=== PATIENT | male | born 1945 | race Caucasian/White ===

== ENCOUNTER 2024-04-08 17:07 | Inpatient (IN) | payer MEDICARE, SELFPAY ==
--- OUTSIDE RECORDS SUMMARY | 2024-04-08 17:12 | XMS_ITS | Continuity of Care Document ---
Author Organization Deandre Bolden [facility] Address [address] [place] [address] Phone Care Team Providers Care Auditing Specialist Name Role Phone Lucille SANTOS Childers Elizabeth Unavailable Unavailable Allergies, Adverse Reactions, Alerts Substance Reaction Status Criticality No Known Allergies Active No Inform ation Medications Medication Instructions Dosage Effective Dates (start - stop) Status Comments potassium chloride ER 10 mEq capsule,extended release TAKE 1 CAPSULE BY MOUTH 2 TIMES DAILY WITH FOOD ^,1R - Active due for updated lab DONEPEZIL HCL 10MG TABS TAKE 1 TABLET BY MOUTH EVERY DAY IN THE EVENING ^ - Active OMEPRAZOLE 20MG CAPSULE TAKE ONE CAPSULE BY MOUTH TWICE A DAY 30 MINUTES TO 1 HOUR BEFORE A MEAL ^1R,1R3 - Active DILTIAZEM HCL ER COATED BE 240 CP24 TAKE 1 CAPSULE BY MOUTH EVERY DAY ^ - Active TRIAMCINOLONE ACETONIDE 0.5% CREAM 15GM APPLY A THIN LAYER TOPICALLY TO AFFECTED AREA TWO TIMES A DAY NEEDED (BULK) - Active PRAVASTATIN SODIUM 20MG TABS TAKE ONE TABLET BY MOUTH EVERY DAY ^1R2 - Active ELIQUIS 5MG TABS TAKE 1 TABLET BY MOUTH TWICE DAILY ^1R2,1R3 - Active sertraline 25 mg tablet take 1 tablet by oral route every day 25 MG - Active diltiazem ER (XR/XT) 240 mg capsule,extended release 24 hr, controlled take 1 capsule by oral route every day 240 MG - Active famotidine 40 mg tablet take 1 tablet by oral route every day at bedtime 40 MG - Active furosemide 40 mg tablet take 1 tablet by oral route every day 40 MG - Active levothyroxine 75 mcg capsule take 1 capsule by oral route every day 75 MCG - Active lisinopril 2.5 mg tablet take 1 tablet by oral route every day 2.5 MG - Active metoprolol succinate ER 200 mg tablet,extended release 24 hr take 1.5 tablet by oral route every day 300 MG - Active Gemtesa 75 mg tablet take 1 tablet by oral route every day 75 MG - Active dorzolamide 2 %-timolol 0.5 % (PF) eye drops - Active latanoprost 0.005 % eye drops instill 1 drop by ophthalmic route every day into affected eye(s) in the evening 1.00 drop - Active POTASSIUM CHLORIDE ER 10MEQ CPCR TAKE 1 CAPSULE BY MOUTH 2 TIMES DAILY WITH FOOD ^1R2,1R3 - No Longer Active Procedures Procedure Date OFFICE/OUTPATIENT VISIT, EST OFFICE/OUTPATIENT VISIT, EST Psychotherapy 45 Min (38-52 Min) 2023 OFFICE/OUTPATIENT VISIT, EST PROLNG OFF/OP E/M EA 15 MIN Left W/O Being Seen OFFICE/OUTPATIENT VISIT, EST Nurse Assesment ELECTROCARDIOGRAM, COMPLETE OFFICE/OUTPATIENT VISIT, NEW Advance Directives Directive Yes / No Effective Date File Name No Information Encounters Encounter Description Practice Location Reason(s) For Visit Diagnoses Date Provider Providers Copied on Encounter Deandre [facility], [address], [place], [place], [id number], [place] tel:[phone] [facility] No Information 4 Lucille Johnson. [address], [place], [address], [place]. tel:[phone] [facility], [address], [place], [place], [id number], [place] tel:[phone] [facility] PrediabetesHy perlipidemia 4 Blayne Roach. [address], [place], [address], [place]. tel:[phone] OFFICE/OUTPATI ENT VISIT, EST [facility], [address], [place], [place], [id number], [place] tel:[phone] [facility] ED f/u (chief complaint) Word finding difficultySta tus post fallHistory of stroke 4 Higinio Doherty. [address], [place], [address], [place]. tel:[phone] [facility], [address], [place], [place], [id number], [place] tel:[phone] [facility] No Information 4 Lucille Johnson. [address], [place], [address], [place]. tel:[phone] [facility], [address], [place], [place], [id number], [place] tel:[phone] [facility] No Information 4 Lucille Johnson. [address], [place], [address], [place]. tel:[phone] [facility], [address], [place], [place], [id number], [place] tel:[phone] [facility] No Information Jan-0 4 Lucille Johnson. [address], [place], [address], [place]. tel:[phone] [facility], [address], [place], [place], [id number], [place] tel:[phone] [facility] No Information 4 geno Johnson. [address], [place], [address], [place]. tel:[phone] OFFICE/OUTPATI ENT VISIT, EST [facility], [address], [place], [place], [id number], [place] tel:[phone] [facility] chronic conditions (chief complaint)d epression (chief complaint) Other psoriasisMixe d hyperlipidemi aEssential (primary) hypertensionH ypothyroidism , unspecifiedGo ut, unspecifiedPr ediabetesPers onal history of malignant neoplasm of prostateDepre ssion, recurrent 4 [facility] [address], [place], [address], [place]. tel:[phone] [facility], [address], [place], [place], [id number], [place] tel:[phone] [facility] No Information 4 [facility] Elizabeth. [address], [place], [address], [place]. tel:[phone] Psychotherapy 45 Min (38-52 Min) [facility], [address], [place], [place], [id number], [place] tel:[phone] [facility] Adjustment disorder w/ depressed mood 4 Tomás Aquino. [address], [place], [address], [place]. tel:[phone] OFFICE/OUTPATI ENT VISIT, EST [facility], [address], [place], [place], [id number], [place] tel:[phone] [facility] depression (chief complaint)P soriasis (chief complaint) Depression, recurrentPsor iasis 4 [facility] Elizabeth. [address], [place], [address], [place]. tel:[phone] [facility], [address], [place], [place], [id number], [place] tel:[phone] [facility] Proc/trtmt not crd out d/t pt lv bef seen by [facility] care prov 4 [facility] Elizabeth. [address], [place], [address], [place]. tel: [phone] [facility], [address], [place], [place], [id number], [place] tel:[phone] [facility] No Information 4 [facility]. [address], [place], [address], [place]. tel:[phone] OFFICE/OUTPATI ENT VISIT, EST [facility], [address], [place], [place], [id number], [place] tel:[phone] [facility] FOLLOW UP HOSPITAL ADMIT: A-FIB (chief complaint) Chronic glaucomaEssen tial hypertensionM ild dementia, unspecified dementia type, unspecified whether behavioral, psychotic, or mood disturbance or anxietyAtrial fibrillation, unspecified typeHistory of gout 3 [facility] Elizabeth. [address], [place], [address], [place]. tel:[phone] [facility], [address], [place], [place], [id number], [place] tel:[phone] [facility] rec/BP check (chief complaint) Essential hypertension 3 Miguel Blevins. [address], [place], [place], [id number] , [place]. tel:[phone] OFFICE/OUTPATI ENT VISIT, NEW [facility], [address], [place], [place], [id number], [place] tel:[phone] [facility] patient (chief complaint) Health maintenance alterationMil d dementia, unspecified dementia type, unspecified whether behavioral, psychotic, or mood disturbance or anxietyPsoria tic arthritisPsor iasisHypercho lesterolemiaE ssential hypertensionC hronic glaucomaParox ysmal atrial fibrillationA ortic atheroscleros isChronic congestive heart failure, unspecified heart failure typeHypothyro idism, unspecified typeHistory of prostate cancer 3 Lucille Johnson. [address], [place], [address], [place]. tel:[phone] Family History Family Member Type Diagnosis Age At Onset No Information Payers Payer name Insurance type Covered libertarian ID Authoriza tideniz(s) [employer] CI [id number] Social History Type Description Quantity Date Captured Comments Sex Male Smoking Status No Information Chief Complaint And Reason For Visit No Information Reason For Referral Reason For Referral No Information Plan Of Treatment Date Type Action Status Goal LDL Cholesterol (Direct). Due on due Goal Influenza vaccine. Due on due Goal Pneumococcal vaccine. Due on due Goal ECG due Goal Document SOGI In formation. Due on due Goal Zoster vaccine (). Due on due Goal Urinalysis. Due on due Goal Unhealthy drug u se screening. Due on due Goal Diabetes screening. Due on due Goal Td vaccine. Due on due Goal Zoster vaccine (). Due on due Goal Diabetes screening. Due on due Goal LDL Cholesterol (Direct). Due on due Goal Urinalysis. Due on due Goal Pneumococcal vaccine. Due on due Goal Document SOGI In formation. Due on due Goal Td vaccine. Due on due Goal Influenza vaccine. Due on due Goal ECG due Goal Unhealthy drug u se screening. Due on due Goal Unhealthy drug u se screening. Due on due Goal Zoster vaccine (1st). Due on due Goal Urinalysis. Due on due Goal ECG due Goal Influenza vaccine. Due on due Goal Td vaccine. Due on due Goal Document SOGI In formation. Due on due Goal LDL Cholesterol (Direct). Due on due Goal Diabetes screening. Due on due Goal Pneumococcal vaccine. Due on due Goal Td vaccine. Due on due Goal LDL Cholesterol (Direct). Due on due Goal Zoster vaccine (). Due on due Goal Document SOGI In formation. Due on due Goal ECG due Goal Pneumococcal vaccine. Due on due Goal Influenza vaccine. Due on due Goal Urinalysis. Due on due Goal Unhealthy drug u se screening. Due on due Goal Diabetes screening. Due on due Goal Document SOGI In formation. Due on due Goal Td vaccine. Due on due Goal ECG due Goal LDL Cholesterol (Direct). Due on due Goal Unhealthy drug u se screening. Due on due Goal Diabetes screening. Due on due Goal Urinalysis. Due on due Goal Pneumococcal vaccine. Due on due Goal Zoster vaccine (). Due on due Goal Influenza vaccine. Due on due Goal LDL Cholesterol (Direct). Due on due Goal Influenza vaccine. Due on due Goal Td vaccine. Due on due Goal Zoster vaccine (). Due on due Goal Diabetes screening. Due on due Goal Unhealthy drug u se screening. Due on due Goal ECG due Goal Urinalysis. Due on due Goal Pneumococcal vaccine. Due on due Goal Document SOGI In formation. Due on due Goal CT-Colonography. Due on due Goal FOBT. Due on due Goal Colonoscopy. Due on due Goal Influenza vaccine. Due on due Goal Diabetes screening. Due on due Goal Td vaccine. Due on due Goal LDL Cholesterol (Direct). Due on due Goal Urinalysis. Due on due Goal Unhealthy drug u se screening. Due on due Goal FIT-DNA. Due on due Goal Zoster vaccine (). Due on due Goal Pneumococcal vaccine. Due on due Goal Document SOGI In formation. Due on due Goal Lipid panel. Due on 024 due Goal ECG due Goal LDL Cholesterol (Direct). Due on due Goal Unhealthy drug u se screening. Due on due Goal Td vaccine. Due on due Goal CT-Colonography. Due on due Goal Urinalysis. Due on due Goal Diabetes screening. Due on O due Goal FOBT. Due on due Goal FIT-DNA. Due on due Goal Document SOGI In formation. Due on due Goal Pneumococcal vaccine. Due on due Goal ECG due Goal Influenza vaccine. Due on Oc due Goal Zoster vaccine (). Due on due Goal Lipid panel. Due on 023 due Goal Colonoscopy. Due on 023 due Goal Influenza vaccine. Due on Se due Goal Td vaccine. Due on due Goal Urinalysis. Due on due Goal CT-Colonography. Due on due Goal Unhealthy drug u se screening. Due on due Goal Document SOGI In formation. Due on due Goal Pneumococcal vaccine. Due on due Goal ECG due Goal Lipid panel. Due on due Goal Colonoscopy. Due on due Goal LDL Cholesterol (Direct). Due on due Goal FIT-DNA. Due on due Goal Zoster vaccine (1st). Due on due Goal FOBT. Due on due Goal Diabetes screening. Due on due Goal Diabetes screening. Due on due Goal LDL Cholesterol (Direct). Due on due Goal Urinalysis. Due on due Goal ECG. Due on due Goal Td vaccine. Due on due Goal Unhealthy drug u se screening. Due on due Goal FIT-DNA. Due on due Goal Lipid panel. Due on due Goal CT-Colonography. Due on due Goal FOBT. Due on due Goal Document SOGI In formation. Due on due Goal Pneumococcal vaccine. Due on due Goal Colonoscopy. Due on 023 due Goal Influenza vaccine. Due on due Goal Zoster vaccine (1st). Due on due Referral Ordered: Physical Therapy (related to Status post fall) ordered Referral Referred To: Physical Therapy Ordered: Referrals: Physical Therapy. Evaluate and treat Appointment date/timeframe: Routine <3 Months ordered Referral Ordered: Referrals: Neurology. Evaluate and treat Appointment date/timeframe: Routine <3 Months ordered Referral Ordered: Rheumatology (related to Psoriasis) ordered Referral Ordered: Referrals: Rheumatology. Evaluate and treat Appointment date/timeframe: Routine <3 Months ordered Referral Ordered: Referrals: Urology Appointment date/timeframe: Routine <3 Months ordered Referral Ordered: Referrals: Cardiology. Evaluate and treat Appointment date/timeframe: Routine <3 Months ordered Referral Ordered: Referrals: Dermatology Appointment date/timeframe: Routine <3 Months ordered Appointment Gary Romero BOOKED Future Order: Lab Order Comp. Mt tabolic Panel (14) ([id number]), Sent on: Sent History Of Present Illness Encounter Date Complaint History Of Prese nt Illness ED f/u Went to [facility] on 03/07/24 after fall and had black eye and conjunctival hemorrhage. Pt lives in care home neighborhood. Not an assisted living. Was advised to stop elliquis for 2 days, has since resolve. Denies any worsening bruising or any eye swelling or eye pain. history of stroke and on eliquis residual word finding difficulty. Sees bridge builder for afib and history of stroke. Sees optometry in [place] at [facility]. Here with daughter. Advises to f/u with optometry.Daughter states having nursing available at [facility] and requested PT for fall prevention. Requesting home PT due to daughter only able to drive pt, pt does not drive. providers: [facility], [facility] [place] and [facility].Daughter would like referral for worsening word difficulty finding. ED f/u (comments) Comments: [facility] for fall assessment and PT. document ADLs chronic conditions 1) Other psor iasis (onset 12/29/2022; Uncontrolled. pt had some improvement in skin lesions with topical steroids but has ongoing knee pain, left hand pain) 2) Mixed hyperlipidemia (onset 12/29/2022; Controlled.) 3) Essential (primary) hypertension (onset 12/29/2022; Controlled.) 4) Hypothyroidism, unspecified (onset 12/29/2022; Controlled.) 5) Gout, unspecified (onset 12/29/2022; Controlled.) 6) Prediabetes (onset 12/29/2022; Stable.) 7) Personal history of malignant neoplasm of prostate (onset 12/29/2022; Stable.) depression This is a follow up visit. There is improvement of initial symptoms. The patient does not present with thoughts of or suicide. Additional information: in better spirits. did one therapy session, does not feel he needs again. per pt and daughter no more SI. depression (comments) Comments: here today because he told his ex / friend he wanted to kill himself. has dementia, lives independently in elderly housing. moved to [place] 1 year ago from [place] and hates it here. wants to go back to [place], has no friends here. moved up here due to kids being local. they help regularly. his ex told his daughter about what he said and they are here today to discuss concerns. pt was on TCA in [place] but since stopped taking depression The patient pres ents with thoughts of or suicide. The patient's risk factors include chronic illness, history of depression and social isolation. The patient denies any aggravating factors. Interventionsthe patient has tried have not provided any relief. Psoriasis The patient stat es the symptoms are chronic and are uncontrolled. Per daughter saw Neto ellsworth, tried some topicals but pt non compliant with treatment, does not like ointment.per seng wants him to see rheum for biologic, will not prescribe FOLLOW UP HOSPITAL ADMIT: A-FIB Pt admitted to [facility] after persisting rapid a-fib/flutter. likely due to non compliance with meds.had diltiazem drip while inpatient and stabilized, discharged on current med list, reviewed with patient and daughter.pt reports he is feeling greatdaughter now setting up pillsdaughter got digital clock which is easier to readusing QID case rayshawn is checking on him regularly and making sure he is taking correct, she says he is doing well he has been off the imipramine from [place], was unclear if he was taking consistently before. states had some mood changes while inapt but now mood much better doing home PT/OT Med rec/BP check Pt arrived [place] for schedule nurse visit per provider POC, pt accompanied by dtr who is assisting him with transition from moving from [place] into an independent living facility. Medications were brought to appt. Pt denies any new symptoms new patient Just moved here from [place], needs new PCP. Lives in elderly housing.extensive hx updated in history section of charthere with daughter, QUOC, form given Functional Status Date Functional Assessmen t No Information Instructions Date Instruction Additional Infor mation No Information Assessments Type Assessment Date No Information Patient Care Teams Name Effective Dates (start - stop) Status Members No Information
[2024-04-08 17:34] VITALS: BMI 32.6
[2024-04-08 17:35] VITALS: BP 143/86; PULSE 82; RESP 18; TEMP 36.1; O2SAT 97
--- NOTE | 2024-04-08 19:41 | PC.ADMIT ---
78 year old white male admitted to 182-2 at 1730 from [facility] ED with diagnosis of Unspecified Neurocognitive Disorder via stretcher. Patient signed a CV in our ED. He is alert to self only. 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 He is calm and cooperative. His vital signs [id number]/86 and O2 Sat 97% on room air. He has been recently more confused and paranoid, calling the police to report that there was a masked man in his independent living apartment. The police sent him to [facility] ED. Information was obtained from the patient who was very difficult to interview and his chart. He has several areas of Psoriasis all over his body, including both upper extremities, right knee, coccyx and posterior left flank. He denies pain. He denies HI, SI and says that he sometimes has unusual thoughts. He stated that he is having trouble with his neighbors and he would never hurt anyone. He was not focused during his interview , nonsensical and had to be redirected several times. He is incontinent of urine. His main HCP Marianna is on vacation in [facility] so his daughter KARENA who lives in [facility] gave [facility] information. NKA. Height 68 inches , weight 214.6 pounds. He stated that he already had the Flu shot, and refused it. He has not smoked for at least ten years and does not need or want any nicotine replacement or counseling.
[2024-04-08 20:00] VITALS: BP 116/80; PULSE 87; RESP 18; TEMP 36; O2SAT 96
[2024-04-08] MEDS: traZODone HCL 50 MG TABLET PO (20:29)
[2024-04-08] MEDS: hydrOXYzine HCL 25 MG TABLET PO (20:29)
[2024-04-08 21:13] LABS: Alanine Aminotransferase 15 U/L (0-40); Alkaline Phosphatase 78 U/L (39-117); Anion Gap 13 (12-20); Aspartate Amino Transferase 24 U/L (5-37); Bilirubin Total 0.6 mg/dL (0.0-1.0); Blood Urea Nitrogen 21 mg/dL (9-16); Calcium 8.9 mg/dL (8.4-10.2); Carbon Dioxide 25 mmol/L (22-29); Chloride 109 mmol/L (96-108); Creatinine Clr Calc Pharmacy 83.6; Estimated Glomerular Filt Rate > 60; Glucose Random 109 mg/dL (60-115); Potassium 3.9 mmol/L (3.3-5.1); Sodium 143 mmol/L (135-145); Total Protein 7.1 g/dL (6.5-8.0)
--- NOTE | 2024-04-08 21:35 | HO.PM.IMCN ---
History of Present Illness Data of Consult Service Date: 04/08/24 Requesting physician: Berny Escamilla Primary Care Provider: Unknown Physician HPI Reason for consult: medical consult Patient is a 78-year-old male with a past medical history significant for neurocognitive disorder unspecified, AFib, CVA, gout left foot, GERD, dementia, hypothyroidism, arthritis and psoriasis admitted to Geriatric psych for confusion and paranoid, consulted for medical clearance for the floor. the pt was confused and very difficult to interview. he did answer questions with appropriate responses and was difficult to redirect. he was pleasant, however, no accurate history was given. Review of Systems Review of Systems: Yes Unobtainable due to mental status PMFSH Social History Household Members: None Housing: Apartment Housing Other:: independent living facility [facility] Do you presently have visiting nurse or other home services: No Patient Tobacco Use Status: Former Tobacco user Tobacco use type: Cigarette Smoked in Last 30 Days: No e-Cigarette/Vaping Use: Never Used Patient Interested in Nicotine Replacement: No Patient Given Instructions on How to Stop Smoking: No Second Hand Smoke Exposure: No Use of substances other than those prescribed or required for medical reasons: No Currently Displaying Signs/Symptoms of Drug Intoxication Withdrawal: No Any prior treatment program specific to substance use: No Have you been hit, kicked, punched, or otherwise hurt by someone within the past year? If so, by whom?: No Do you feel safe in your current relationship?: Yes Is there a partner from a previous relationship who is making you feel unsafe now?: No Are you made to feel afraid or neglected: No Gnosticist Healthcare Practices: Buddhism Advance Directives: No Advance Directives Information Provided: No Do you have a plan to hurt others: No Plan Recently lost weight without trying: Unsure Nutrition Risks: No Nutritional Risk Poor oral hygiene: No Meds Allergies Allergy/AdvReac Type Severity Reaction Status Date / Time No Known Allergies Allergy Verified 04/08/24 19:16 Active Medications: Current Medications Acetaminophen (Acetaminophen 325 Mg Tablet) 650 mg PO Q6H PRN PRN Reason: Headache/Pain Mild Scale (1-3) Al Hydroxide/Mg Hydroxide (Magnesium Hydrox/Alum Hydrox 30 Ml Oral.Susp) 30 ml PO Q6H PRN PRN Reason: Heartburn/Nausea Apixaban (Apixaban 5 Mg Tablet) 5 mg PO BID [facility] Diltiazem HCl (Diltiazem Hcl Cd 240 Mg Cap.Er.Deg) 240 mg PO DAILY [facility]; Protocol Donepezil HCl (Donepezil Hcl 10 Mg Tablet) 10 mg PO DAILY [facility] Famotidine (Famotidine 20 Mg Tablet) 40 mg PO BEDTIME [facility] Furosemide (Furosemide 40 Mg Tablet) 40 mg PO DAILY [facility]; Protocol Hydroxyzine HCl (Hydroxyzine Hcl 25 Mg Tablet) 25 mg PO Q6H PRN PRN Reason: Anxiety Last Admin: 04/08/24 20:29 Dose: 25 mg Latanoprost (Latanoprost 0.005 % Ophth Lupis 2.5 Ml Drops) 1 drop EYE-BOTH BEDTIME [facility] Levothyroxine Sodium (Levothyroxine Sodium 75 Mcg Tablet) 75 mcg PO DAILY [facility] Lisinopril (Lisinopril 2.5 Mg Tablet) 2.5 mg PO DAILY [facility]; Protocol Magnesium Hydroxide (Milk Of Magnesia 30 Ml Oral.Susp) 30 ml PO DAILY PRN PRN Reason: Constipation Metoprolol Succinate (Metoprolol Succinate Er 100 Mg Tab.Er.24h) 200 mg PO DAILY [facility]; Protocol Non-Formulary Medication (Potassium Chloride) 10 meq PO BID [facility] Non-Formulary Medication (Solifenacin) 10 mg PO DAILY [facility] Omeprazole (Omeprazole 20 Mg Capsule.Dr) 20 mg PO BID [facility] Pravastatin Sodium (Pravastatin Sodium 20 Mg Tablet) 20 mg PO DAILY [facility] Trazodone HCl (Trazodone Hcl 50 Mg Tablet) 50 mg PO BEDTIME MRX1 PRN PRN Reason: Insomnia Last Admin: 04/08/24 20:29 Dose: 50 mg Home Medications ?Medication ?Instructions ?Recorded ?Confirmed ?Last Taken ?Type apixaban 5 mg tablet (Eliquis) 5 mg PO BID 04/08/24 04/08/24 Unknown History diltiazem HCl 240 mg 240 mg PO DAILY 04/08/24 04/08/24 Unknown History capsule,extended release 24 hr donepezil 10 mg tablet 10 mg PO DAILY 04/08/24 04/08/24 Unknown History famotidine 40 mg tablet 40 mg PO BEDTIME 04/08/24 04/08/24 Unknown History furosemide 40 mg tablet 40 mg PO DAILY 04/08/24 04/08/24 Unknown History latanoprost 0.005 % eye drops 1 drp ophthalmic (eye) BEDTIME 04/08/24 04/08/24 Unknown History levothyroxine 75 mcg tablet 75 mcg PO DAILY 04/08/24 04/08/24 Unknown History lisinopril 2.5 mg tablet 2.5 mg PO DAILY 04/08/24 04/08/24 Unknown History metoprolol succinate 200 mg 200 mg PO DAILY 04/08/24 04/08/24 Unknown History tablet,extended release 24 hr omeprazole 20 mg capsule,delayed 20 mg PO BID 04/08/24 04/08/24 Unknown History release potassium chloride 10 mEq 10 meq PO BID 04/08/24 04/08/24 Unknown History capsule,extended release pravastatin 20 mg tablet 20 mg PO DAILY 04/08/24 04/08/24 Unknown History solifenacin 10 mg tablet 10 mg PO DAILY 04/08/24 04/08/24 Unknown History Physical Exam Vital Signs and Narrative: Vital Signs: Last Vital Signs Temp 96.8 F 04/08/24 20:00 Pulse 87 04/08/24 20:00 Resp 18 04/08/24 20:00 BP 116/80 04/08/24 20:00 Pulse Ox 96 04/08/24 20:00 O2 Del Method Room Air 04/08/24 20:00 BMI result Body Mass Index 32.6 General: alert and orientated to person, no acute distress Resp: CTA bilaterally CVS: S1, S2, RRR GI: +BS, NT, no distention Skin: Warm, dry. Psoriasis plaques visible on upper extremities Neuro: limited exam as he did not follow commands well. PERRLA, EOMs intact, facial sensation intact, no facial droop. Extremities: No LE edema Psych: Appropriate affect Results Labs 04/08/24 20:38 Labs: Laboratory Results - last 24 hr 04/08/24 20:38 Anion Gap 13 Estim Creat Clear Calc 83.6 Estimated GFR > 60 Random Glucose 109 Calcium 8.9 Total Bilirubin 0.6 AST 24 ALT 15 Alkaline Phosphatase 78 Total Protein 7.1 Albumin 4.0 Assessment and Plan (1) Medical clearance for psychiatric admission: Status: Acute (2) Obesity (BMI 30.0-34.9): Status: Acute Plan Patient is a 78-year-old male with a past medical history significant for neurocognitive disorder unspecified, AFib, CVA, gout left foot, GERD, dementia, hypothyroidism, arthritis and psoriasis admitted to Geriatric psych for confusion and paranoid, consulted for medical clearance for the floor. no accurate history was obtain, however, pt did not have any current medical concerns and appeared comfortable. mood disorder - plan per psych Neurocognitive disorder unspecified, dementia - continue donepezil a fib - continue eliquis, diltiazem, metoprolol History CVA - continue pravastatin Gout - no home meds GERD - continue famotidine and omeprazole Hypothyroidism - continue levothyroxine Psoriasis - patient not bothered by psoriasis - consider adding triamcinolone cream if bothersome Obesity - BMI 32.6 - weight loss encouraged Thank you for allowing me to participate in the pt's care. Signing off for now. Please contact the medical team if any questions or concerns.
[2024-04-08] MEDS: Apixaban 5 MG TABLET PO (22:39)
[2024-04-08] MEDS: Famotidine 20 MG TABLET 40 MG PO (22:39)
[2024-04-08] MEDS: Omeprazole 20 MG CAPSULE.DR PO (22:39)
[2024-04-08] MEDS: Potassium Chloride ER 10 MEQ TABLET.ER PO (22:45)
[2024-04-08] MEDS: Latanoprost 0.005 % Ophth Sol 2.5 ML DROPS 1 DROP EYE-BOTH (22:47)
--- NOTE | 2024-04-09 04:18 | PC.NURSE ---
Patient is seen by hospitalist, Bárbara Childs.
[2024-04-09] MEDS: Omeprazole 20 MG CAPSULE.DR PO ×2 (06:14→16:09)
[2024-04-09] MEDS: Levothyroxine Sodium 75 MCG TABLET PO (06:14)
[2024-04-09 08:06] VITALS: BP 155/91; PULSE 86; RESP 16; TEMP 36.1; O2SAT 95
[2024-04-09] MEDS: Furosemide 40 MG TABLET PO (08:47)
[2024-04-09] MEDS: lisinopriL 2.5 MG TABLET PO (08:47)
[2024-04-09] MEDS: Pravastatin Sodium 20 MG TABLET PO (08:47)
[2024-04-09] MEDS: dilTIAZem HCL CD 240 MG CAP.ER.DEG PO (08:48)
[2024-04-09] MEDS: Tolterodine Tartrate LA 4 MG CAP.ER.24H PO (08:48)
[2024-04-09] MEDS: Potassium Chloride ER 10 MEQ TABLET.ER PO ×2 (08:48→21:15)
[2024-04-09] MEDS: Apixaban 5 MG TABLET PO ×2 (08:48→21:15)
[2024-04-09] MEDS: Donepezil HCl 10 MG TABLET PO (08:48)
[2024-04-09 09:13] LABS: Estimated Average Glucose 123 mg/dL; Hemoglobin A1c % 5.9 % (<6.0); Total Hemoglobin (HGBA1C) 3408.3455 umol/L
--- NOTE | 2024-04-09 09:32 | PHA.MEDREC ---
Addendum entered by Morris Ramires 04/09/24 09:42: reviewed, the metoprolol has already been continued at 200mg Daily, I was unable to contact the pharmacy. Spoke to the provider to let them know. Original Note: Pharmacy Consult ? Medication Reconciliation Pharmacy reviewed med rec done by nursing. Nurse confirmed patients Metoprolol 200mg tab and the nurse had confirmed once daily. In claims it looks like the Metoprolol has been consistently filled as Take 1 1/2 tablet daily, I updated the directions in the med rec. Everything else matched claims.
[2024-04-09 09:38] LABS: Cholesterol 171 mg/dL (<200); HDL Cholesterol 42 mg/dL (>40); LDL Cholesterol Calculated 115 mg/dL (<100); Triglycerides 70 mg/dL (<150)
[2024-04-09 09:53] VITALS: BP 138/89; PULSE 78
[2024-04-09 09:53] LABS: Thyroid Stimulating Hormone 1.36 uIU/mL (0.32-4.0)
[2024-04-09] MEDS: Metoprolol Succinate ER 100 MG TAB.ER.24H 200 MG PO (09:53)
[2024-04-09 10:02] LABS: Vitamin B12 216 pg/mL (200-900)
--- NOTE | 2024-04-09 13:17 | HO.PSYADMNOT ---
HPI Date of Service: 04/09/24 Chief Complaint: unspecified neurocognitive d/o Sources of Information: patient interviewed, chart reviewed and crisis/core team assessment reviewed HPI Subjective Notes: Section 12B Narrative: The patient is a 78-year-old male, resident of an assisted living facility with good social support provided but his 2 adult daughters who lives around with a past history of dementia. The patient was rushed to the emergency room after he had been calling to the police several times stating that masked intruders are getting into his home. According to the crisis assessment her daughter reported that he had been more irritable in the last month unclear reasons. He was assessed in the emergency room [facility], evidenced on the psychiatric evaluation of visual hallucinations with disorganized behavior. Was rushed to the emergency room medically cleared and transferring to this facility for psychiatric stabilization. During the emergency room, the assessment showed that he was severely demented and confused unable to follow directions. On interview, the patient was very confused and pleasant stating that he is doing fine but he was completely disoriented, he did not know that he was in the hospital. Was unable to provide how come he ended up in the emergency room was complaining that he needed to go to his home. The patient was a very poor historian but pleasantly confused and redirectable. We will try to gather more collateral information. According to the referral form, the patient suffers from dementia for an unknown time and he has never received psychiatric treatment. No safety concerns at this moment on fall risk precautions. Past Psychiatric History: Denies no prior psychiatric history as per report Medical Evaluation Reviewed: Yes [facility] Family History: Denies Social History: Lives in an assisted living facility past history of dementia good social support Substance History: Denies Trauma History: Denies Diagnostics Vital Signs (24Hr): Vital Signs - 24 hr 04/08/24 17:35 04/08/24 20:00 04/09/24 08:06 Temperature 97 F 96.8 F 97.0 F Pulse Rate 82 87 86 Respiratory Rate 18 18 16 Blood Pressure 143/86 H 116/80 155/91 H Pulse Oximetry 97 96 95 Oxygen Delivery Method Room Air Room Air Room Air 04/09/24 09:53 Temperature Pulse Rate 78 Respiratory Rate Blood Pressure 138/89 Pulse Oximetry Oxygen Delivery Method BMI result Body Mass Index 32.6 Labs 04/08/24 20:38 Labs: Laboratory Results - last 48 hr 04/08/24 04/09/24 20:38 08:12 Sodium 143 Potassium 3.9 Chloride 109 H Carbon Dioxide 25 Anion Gap 13 BUN 21 H Creatinine 0.85 Estim Creat Clear Calc 83.6 Estimated GFR > 60 Random Glucose 109 Estimat Average Glucose 123 Hemoglobin A1c % 5.9 Calcium 8.9 Total Bilirubin 0.6 AST 24 ALT 15 Alkaline Phosphatase 78 Total Protein 7.1 Albumin 4.0 Triglycerides 70 Cholesterol 171 LDL Cholesterol, Calc 115 H HDL Cholesterol 42 Vitamin B12 216 Folate 16.0 TSH 1.36 Meds/Allergies Meds Home Medications ?Medication ?Instructions ?Recorded ?Confirmed ?Type apixaban 5 mg tablet (Eliquis) 5 mg PO BID 04/08/24 04/08/24 History diltiazem HCl 240 mg 240 mg PO DAILY 04/08/24 04/08/24 History capsule,extended release 24 hr donepezil 10 mg tablet 10 mg PO DAILY 04/08/24 04/08/24 History famotidine 40 mg tablet 40 mg PO BEDTIME 04/08/24 04/08/24 History furosemide 40 mg tablet 40 mg PO DAILY 04/08/24 04/08/24 History latanoprost 0.005 % eye drops 1 drp ophthalmic (eye) BEDTIME 04/08/24 04/08/24 History levothyroxine 75 mcg tablet 75 mcg PO DAILY 04/08/24 04/08/24 History lisinopril 2.5 mg tablet 2.5 mg PO DAILY 04/08/24 04/08/24 History metoprolol succinate 200 mg 300 mg PO DAILY 04/08/24 04/09/24 History tablet,extended release 24 hr omeprazole 20 mg capsule,delayed 20 mg PO BID 04/08/24 04/08/24 History release potassium chloride 10 mEq 10 meq PO BID 04/08/24 04/08/24 History capsule,extended release pravastatin 20 mg tablet 20 mg PO DAILY 04/08/24 04/08/24 History solifenacin 10 mg tablet 10 mg PO DAILY 04/08/24 04/08/24 History Allergies Allergies Allergy/AdvReac Type Severity Reaction Status Date / Time No Known Allergies Allergy Verified 04/08/24 19:16 Mental Status Exam Mental Status Exam Patient Appearance: Appropriate Patient Orientation: Person and Situation Level of Consciousness: Awake and Appropriate Patient Behavior: Guarded and Passive Mood Description: Withdrawn Affect Description: Blunted Patient Cognition Impaired: Yes Ability to Follow Directions: Good Speech Pattern: Clear Hallucinations: Auditory Delusions: Paranoid Ideation and Ideas of Reference Thought Process: Distracted and Slowed Thinking Thought Content: positive for [place] and positive for Poverty of Content Judgement: Fair Assessment & Plan Assessment & Plan (1) Dementia: Status: Acute Code(s): F03.90 - Unspecified dementia, unspecified severity, without behavioral disturbance, psychotic disturbance, mood disturbance, and anxiety (2) Psychosis: Status: Acute Code(s): F29 - Unspecified psychosis not due to a substance or known physiological condition Plan The patient is a 78-year-old male with a past history of high blood pressure, dementia, hypothyroidism and GERD referred from the emergency room of [facility] for exacerbation of psychosis in the context of worsening dementia. He had been calling the police regarding masked intruders in his home and disorganized behavior. Plan 1. Gather collateral information. 2. Continue 15 minutes checks. 3. Continue with medical workout. 4. We will start a low dose of Zyprexa 2.5 p.o. q.6 PRNs psychosis since he responded fairly well on the emergency room. 5. Referral for occupational therapist for cognitive impairment. Patient educated on: diagnosis Informed Consent: does not understand Reason for continued inpatient stay Substantial Risk for: inability to function, rapid decompensation and med/psych decompensation Statement Statement: I have reviewed the history and physical and performed a pertinent examination on my patient. No changes have occurred unless specified. If the History and Physical was not performed prior to admission, the Hospitalist's service will be consulted for completing the admission physical. Time Spent With Patient Time: Total time managing care of this patient today __45__ minutes.
[2024-04-09 20:00] VITALS: BP 108/55; PULSE 59; RESP 18; TEMP 36.3; O2SAT 96
[2024-04-09] MEDS: Famotidine 20 MG TABLET 40 MG PO (21:15)
[2024-04-09] MEDS: traZODone HCL 50 MG TABLET PO (21:15)
[2024-04-09] MEDS: hydrOXYzine HCL 25 MG TABLET PO (21:15)
[2024-04-09] MEDS: Latanoprost 0.005 % Ophth Sol 2.5 ML DROPS 1 DROP EYE-BOTH (22:00)
[2024-04-10] MEDS: Levothyroxine Sodium 75 MCG TABLET PO (05:45)
[2024-04-10] MEDS: Omeprazole 20 MG CAPSULE.DR PO ×2 (05:45→15:58)
[2024-04-10 08:00] VITALS: BP 114/60; PULSE 67; RESP 18; TEMP 36; O2SAT 95
[2024-04-10] MEDS: Apixaban 5 MG TABLET PO ×2 (08:18→19:59)
[2024-04-10] MEDS: Donepezil HCl 10 MG TABLET PO (08:18)
[2024-04-10] MEDS: Tolterodine Tartrate LA 4 MG CAP.ER.24H PO (08:18)
[2024-04-10] MEDS: Potassium Chloride ER 10 MEQ TABLET.ER PO ×2 (08:18→20:00)
[2024-04-10] MEDS: dilTIAZem HCL CD 240 MG CAP.ER.DEG PO (08:18)
[2024-04-10] MEDS: Pravastatin Sodium 20 MG TABLET PO (08:18)
[2024-04-10] MEDS: lisinopriL 2.5 MG TABLET PO (08:18)
[2024-04-10] MEDS: Metoprolol Succinate ER 100 MG TAB.ER.24H 200 MG PO (08:19)
[2024-04-10] MEDS: Furosemide 40 MG TABLET PO (08:19)
--- NOTE | 2024-04-10 13:14 | P.PNPSI_ITS ---
Subjective Subjective Date of Service: 04/10/24 Reason For Visit: unspecified neurocognitive d/o Subjective Notes: Conditional Voluntary (?hcp) Medical Problems Affecting Mental Status: Yes (dementia) Interim History: 76 yo with confusion and affect lability- nursing reports he is wandering and paranoid, thinking someone is going to kill him, continues confused. When provider saw him he was sitting in back row watching movie on tv- but not really attending or aware that is what he was doing= He was mumbling rambling on with provider about things that didn't really tie together in coherent fashion. They report he only selpt 2 hrs and failed aterax /trazodone Medication Compliance: Yes Side effects from medications: No Attending Groups: Intermittent Review of Systems Acute medical concerns: No risk of falls Medical Review of Systems: unchanged Mental Status Exam Mental Status Exam Patient Appearance: Well Grooomed and Appropriate Patient Orientation: Person Level of Consciousness: Awake Patient Behavior: Appropriate, Cooperative and Good Eye Contact Mood Description: Calm (with provider) and Labile (over times of day ) Affect Description: Blunted Patient Cognition Impaired: Yes Ability to Follow Directions: Fair Speech Pattern: Garbled and Rambling Delusions: Paranoid Ideation Depressive Symptoms: Difficulty Sleeping Abnormal Motor Activity Signs and Symptoms: Restlessness Judgement: Poor Diagnostics Vital Signs (24Hr): Vital Signs - 24 hr 04/09/24 20:00 04/10/24 08:00 Temperature 97.4 F 96.8 F Pulse Rate 59 67 Respiratory Rate 18 18 Blood Pressure 108/55 L 114/60 Pulse Oximetry 96 95 Oxygen Delivery Method Room Air Room Air BMI result Body Mass Index 32.6 Labs 04/08/24 20:38 Labs: Laboratory Results - last 48 hr 04/08/24 04/09/24 20:38 08:12 Sodium 143 Potassium 3.9 Chloride 109 H Carbon Dioxide 25 Anion Gap 13 BUN 21 H Creatinine 0.85 Estim Creat Clear Calc 83.6 Estimated GFR > 60 Random Glucose 109 Estimat Average Glucose 123 Hemoglobin A1c % 5.9 Calcium 8.9 Total Bilirubin 0.6 AST 24 ALT 15 Alkaline Phosphatase 78 Total Protein 7.1 Albumin 4.0 Triglycerides 70 Cholesterol 171 LDL Cholesterol, Calc 115 H HDL Cholesterol 42 Vitamin B12 216 Folate 16.0 TSH 1.36 Medications Medications Current Medications Acetaminophen (Acetaminophen 325 Mg Tablet) 650 mg PO Q6H PRN PRN Reason: Headache/Pain Mild Scale (1-3) Al Hydroxide/Mg Hydroxide (Magnesium Hydrox/Alum Hydrox 30 Ml Oral.Susp) 30 ml PO Q6H PRN PRN Reason: Heartburn/Nausea Apixaban (Apixaban 5 Mg Tablet) 5 mg PO BID [facility] Last Admin: 04/10/24 08:18 Dose: 5 mg Diltiazem HCl (Diltiazem Hcl Cd 240 Mg Cap.Er.Deg) 240 mg PO DAILY [facility]; Protocol Last Admin: 04/10/24 08:18 Dose: 240 mg Donepezil HCl (Donepezil Hcl 10 Mg Tablet) 10 mg PO DAILY [facility] Last Admin: 04/10/24 08:18 Dose: 10 mg Famotidine (Famotidine 20 Mg Tablet) 40 mg PO BEDTIME [facility] Last Admin: 04/09/24 21:15 Dose: 40 mg Furosemide (Furosemide 40 Mg Tablet) 40 mg PO DAILY [facility]; Protocol Last Admin: 04/10/24 08:19 Dose: 40 mg Hydroxyzine HCl (Hydroxyzine Hcl 25 Mg Tablet) 25 mg PO Q6H PRN PRN Reason: Anxiety Last Admin: 04/09/24 21:15 Dose: 25 mg Latanoprost (Latanoprost 0.005 % Ophth Lupis 2.5 Ml Drops) 1 drop EYE-BOTH BEDTIME [facility] Last Admin: 04/09/24 22:00 Dose: 1 drop Levothyroxine Sodium (Levothyroxine Sodium 75 Mcg Tablet) 75 mcg PO DAILY@0600 [facility] Last Admin: 04/10/24 05:45 Dose: 75 mcg Lisinopril (Lisinopril 2.5 Mg Tablet) 2.5 mg PO DAILY [facility]; Protocol Last Admin: 04/10/24 08:18 Dose: 2.5 mg Magnesium Hydroxide (Milk Of Magnesia 30 Ml Oral.Susp) 30 ml PO DAILY PRN PRN Reason: Constipation Metoprolol Succinate (Metoprolol Succinate Er 100 Mg Tab.Er.24h) 200 mg PO DAILY [facility]; Protocol Last Admin: 04/10/24 08:19 Dose: 200 mg Olanzapine (Olanzapine 2.5 Mg Tablet) 2.5 mg PO Q4H PRN PRN Reason: Psychosis Omeprazole (Omeprazole 20 Mg Capsule.Dr) 20 mg PO BID@0630,1630 [facility] Last Admin: 04/10/24 05:45 Dose: 20 mg Potassium Chloride (Potassium Chloride Er 10 Meq Tablet.Er) 10 meq PO BID [facility] Last Admin: 04/10/24 08:18 Dose: 10 meq Pravastatin Sodium (Pravastatin Sodium 20 Mg Tablet) 20 mg PO DAILY [facility] Last Admin: 04/10/24 08:18 Dose: 20 mg Tolterodine Tartrate (Tolterodine Tartrate La 4 Mg Cap.Er.24h) 4 mg PO DAILY [facility] Last Admin: 04/10/24 08:18 Dose: 4 mg Trazodone HCl (Trazodone Hcl 50 Mg Tablet) 50 mg PO BEDTIME MRX1 PRN PRN Reason: Insomnia Last Admin: 04/09/24 21:15 Dose: 50 mg Allergies Allergies Allergy/AdvReac Type Severity Reaction Status Date / Time No Known Allergies Allergy Verified 04/08/24 19:16 Assessment & Plan Assessment & Plan (1) Dementia: Status: Acute Code(s): F03.90 - Unspecified dementia, unspecified severity, without behavioral disturbance, psychotic disturbance, mood disturbance, and anxiety (2) Psychosis: Status: Acute Code(s): F29 - Unspecified psychosis not due to a substance or known physiological condition Plan The patient is a 78-year-old male with a past history of high blood pressure, dementia, hypothyroidism and GERD referred from the emergency room of [facility] for exacerbation of psychosis in the context of worsening dementia. He had been calling the police regarding masked intruders in his home and disorganized behavior. Plan 1. Gather collateral information. 2. Continue 15 minutes checks. 3. Continue with medical workout. 4. We will start a low dose of Zyprexa 2.5 p.o. q.6 PRNs psychosis since he responded fairly well on the emergency room. 5. Referral for occupational therapist for cognitive impairment. 04/10/24 wonder about using olanzapine 2.5mg mr x1 for sleep ? consider but needs to have risk reviewed with hcp re stroke in elderly- other night meds risk of falls- Guardian/Caregiver educated on: medication risk/benefits Informed Consent: further education needed Reason for continued inpatient stay Substantial Risk for: med/psych decompensation Time Spent With Patient Time: Total time managing care of this patient today ____ minutes.
[2024-04-10 19:44] VITALS: BP 117/59; PULSE 63; TEMP 36.5; O2SAT 93
[2024-04-10] MEDS: Latanoprost 0.005 % Ophth Sol 2.5 ML DROPS 1 DROP EYE-BOTH (19:59)
[2024-04-10] MEDS: Famotidine 20 MG TABLET 40 MG PO (19:59)
[2024-04-10] MEDS: traZODone HCL 50 MG TABLET PO (19:59)
[2024-04-10] MEDS: hydrOXYzine HCL 25 MG TABLET PO (19:59)
[2024-04-11] MEDS: Levothyroxine Sodium 75 MCG TABLET PO (06:44)
[2024-04-11] MEDS: Omeprazole 20 MG CAPSULE.DR PO ×2 (06:44→16:12)
[2024-04-11 08:00] VITALS: BP 127/63; PULSE 62; TEMP 36.4; O2SAT 94
[2024-04-11 09:15] VITALS: BP 127/63
[2024-04-11] MEDS: Pravastatin Sodium 20 MG TABLET PO (09:15)
[2024-04-11] MEDS: Potassium Chloride ER 10 MEQ TABLET.ER PO ×2 (09:15→20:21)
[2024-04-11] MEDS: Tolterodine Tartrate LA 4 MG CAP.ER.24H PO (09:15)
[2024-04-11] MEDS: lisinopriL 2.5 MG TABLET PO (09:15)
[2024-04-11 09:16] VITALS: BP 127/63; PULSE 62
[2024-04-11] MEDS: Furosemide 40 MG TABLET PO (09:16)
[2024-04-11] MEDS: Apixaban 5 MG TABLET PO ×2 (09:16→20:21)
[2024-04-11] MEDS: Donepezil HCl 10 MG TABLET PO (09:16)
[2024-04-11] MEDS: dilTIAZem HCL CD 240 MG CAP.ER.DEG PO (09:16)
[2024-04-11] MEDS: Metoprolol Succinate ER 100 MG TAB.ER.24H 200 MG PO (09:16)
[2024-04-11] MEDS: Memantine HCl 5 MG TABLET PO ×2 (09:20→20:21)
--- NOTE | 2024-04-11 12:35 | HO.PSYCHPN ---
Subjective Subjective Date of Service: 04/11/24 Reason For Visit: unspecified neurocognitive d/o Subjective Notes: Section 12B Interim History: The nursing staff reported the patient had been restless delusional disorganized he slept 7 hours. He has refused to use the walker. Yesterday he took only 80% of his breakfast he had been med compliant and confused. The occupational therapist reported that he scored 3.2 on the Robby test. On interview the patient is very confused unable to hold a conversation. We are going to increase the Namenda to 5 b.i.d. and we are going to start Haldol 1 mg at 04:00 o'clock in the afternoon since the staff has noticed that he . Mental Status Exam Mental Status Exam Patient Appearance: Appropriate Patient Orientation: Person and Situation Level of Consciousness: Awake Patient Behavior: Guarded and Passive Mood Description: Withdrawn Affect Description: Labile Patient Cognition Impaired: Yes Ability to Follow Directions: Fair Speech Pattern: Clear, Impoverished and Difficulty Finding Words Hallucinations: None Delusions: Ideas of Reference Thought Process: Distracted and Slowed Thinking Thought Content: positive for [place] and positive for Poverty of Content Judgement: Poor Diagnostics Vital Signs (24Hr): Vital Signs - 24 hr 04/10/24 19:44 04/11/24 08:00 04/11/24 09:15 Temperature 97.7 F 97.5 F Pulse Rate 63 62 Blood Pressure 117/59 L 127/63 127/63 Pulse Oximetry 93 94 Oxygen Delivery Method Room Air Room Air 04/11/24 09:16 04/11/24 09:16 04/11/24 09:16 Temperature Pulse Rate 62 62 Blood Pressure 127/63 127/63 127/63 Pulse Oximetry Oxygen Delivery Method BMI result Body Mass Index 32.6 Labs 04/08/24 20:38 Medications Medications Current Medications Acetaminophen (Acetaminophen 325 Mg Tablet) 650 mg PO Q6H PRN PRN Reason: Headache/Pain Mild Scale (1-3) Al Hydroxide/Mg Hydroxide (Magnesium Hydrox/Alum Hydrox 30 Ml Oral.Susp) 30 ml PO Q6H PRN PRN Reason: Heartburn/Nausea Apixaban (Apixaban 5 Mg Tablet) 5 mg PO BID [facility] Last Admin: 04/11/24 09:16 Dose: 5 mg Diltiazem HCl (Diltiazem Hcl Cd 240 Mg Cap.Er.Deg) 240 mg PO DAILY [facility]; Protocol Last Admin: 04/11/24 09:16 Dose: 240 mg Donepezil HCl (Donepezil Hcl 10 Mg Tablet) 10 mg PO DAILY [facility] Last Admin: 04/11/24 09:16 Dose: 10 mg Famotidine (Famotidine 20 Mg Tablet) 40 mg PO BEDTIME [facility] Last Admin: 04/10/24 19:59 Dose: 40 mg Furosemide (Furosemide 40 Mg Tablet) 40 mg PO DAILY [facility]; Protocol Last Admin: 04/11/24 09:16 Dose: 40 mg Haloperidol (Haloperidol 1 Mg Tablet) 1 mg PO DAILY@1630 [facility] Hydroxyzine HCl (Hydroxyzine Hcl 25 Mg Tablet) 25 mg PO Q6H PRN PRN Reason: Anxiety Last Admin: 04/10/24 19:59 Dose: 25 mg Latanoprost (Latanoprost 0.005 % Ophth Lupis 2.5 Ml Drops) 1 drop EYE-BOTH BEDTIME [facility] Last Admin: 04/10/24 19:59 Dose: 1 drop Levothyroxine Sodium (Levothyroxine Sodium 75 Mcg Tablet) 75 mcg PO DAILY@0600 [facility] Last Admin: 04/11/24 06:44 Dose: 75 mcg Lisinopril (Lisinopril 2.5 Mg Tablet) 2.5 mg PO DAILY [facility]; Protocol Last Admin: 04/11/24 09:15 Dose: 2.5 mg Magnesium Hydroxide (Milk Of Magnesia 30 Ml Oral.Susp) 30 ml PO DAILY PRN PRN Reason: Constipation Memantine (Memantine Hcl 5 Mg Tablet) 5 mg PO BID [facility] Last Admin: 04/11/24 09:20 Dose: 5 mg Metoprolol Succinate (Metoprolol Succinate Er 100 Mg Tab.Er.24h) 200 mg PO DAILY [facility]; Protocol Last Admin: 04/11/24 09:16 Dose: 200 mg Olanzapine (Olanzapine 2.5 Mg Tablet) 2.5 mg PO Q4H PRN PRN Reason: Psychosis Omeprazole (Omeprazole 20 Mg Capsule.Dr) 20 mg PO BID@0630,1630 [facility] Last Admin: 04/11/24 06:44 Dose: 20 mg Potassium Chloride (Potassium Chloride Er 10 Meq Tablet.Er) 10 meq PO BID [facility] Last Admin: 04/11/24 09:15 Dose: 10 meq Pravastatin Sodium (Pravastatin Sodium 20 Mg Tablet) 20 mg PO DAILY [facility] Last Admin: 04/11/24 09:15 Dose: 20 mg Tolterodine Tartrate (Tolterodine Tartrate La 4 Mg Cap.Er.24h) 4 mg PO DAILY [facility] Last Admin: 04/11/24 09:15 Dose: 4 mg Trazodone HCl (Trazodone Hcl 50 Mg Tablet) 50 mg PO BEDTIME MRX1 PRN PRN Reason: Insomnia Last Admin: 04/10/24 19:59 Dose: 50 mg Allergies Allergies Allergy/AdvReac Type Severity Reaction Status Date / Time No Known Allergies Allergy Verified 04/08/24 19:16 Assessment & Plan Assessment & Plan (1) Dementia: Status: Acute Code(s): F03.90 - Unspecified dementia, unspecified severity, without behavioral disturbance, psychotic disturbance, mood disturbance, and anxiety (2) Psychosis: Status: Acute Code(s): F29 - Unspecified psychosis not due to a substance or known physiological condition Plan The patient is a 78-year-old male with a past history of high blood pressure, dementia, hypothyroidism and GERD referred from the emergency room of [facility] for exacerbation of psychosis in the context of worsening dementia. He had been calling the police regarding masked intruders in his home and disorganized behavior. Plan 1. Gather collateral information. 2. Continue 15 minutes checks. 3. Continue with medical workout. 4. We will start a low dose of Zyprexa 2.5 p.o. q.6 PRNs psychosis since he responded fairly well on the emergency room. 5. Referral for occupational therapist for cognitive impairment. He scored 3.2 on the Robby test 6. Haldol 1 mg at 04:00 o'clock to prevent sundowning. 7. Start Namenda 5 mg p.o. b.i.d. to target dementia. Reason for continued inpatient stay Substantial Risk for: inability to function, rapid decompensation and med/psych decompensation Time Spent With Patient Time: Total time managing care of this patient today _20__ minutes.
[2024-04-11 13:08] VITALS: BMI 32.7
[2024-04-11] MEDS: Acetaminophen 325 MG TABLET 650 MG PO (14:50)
[2024-04-11] MEDS: HaloperidoL 1 MG TABLET PO (16:12)
[2024-04-11 19:25] VITALS: BP 92/52; PULSE 50; TEMP 35.9; O2SAT 95
[2024-04-11] MEDS: Famotidine 20 MG TABLET 40 MG PO (20:20)
[2024-04-11] MEDS: Latanoprost 0.005 % Ophth Sol 2.5 ML DROPS 1 DROP EYE-BOTH (20:21)
[2024-04-12] MEDS: Omeprazole 20 MG CAPSULE.DR PO ×2 (06:01→15:44)
[2024-04-12] MEDS: Levothyroxine Sodium 75 MCG TABLET PO (06:01)
[2024-04-12 08:00] VITALS: BP 123/66; PULSE 56; RESP 16; TEMP 36.8; O2SAT 97
[2024-04-12] MEDS: Memantine HCl 5 MG TABLET PO ×2 (09:15→20:30)
[2024-04-12] MEDS: Potassium Chloride ER 10 MEQ TABLET.ER PO ×2 (09:15→20:30)
[2024-04-12] MEDS: Furosemide 40 MG TABLET PO (09:15)
[2024-04-12] MEDS: Apixaban 5 MG TABLET PO ×2 (09:16→20:30)
[2024-04-12] MEDS: Pravastatin Sodium 20 MG TABLET PO (09:16)
[2024-04-12] MEDS: lisinopriL 2.5 MG TABLET PO (09:16)
[2024-04-12] MEDS: Tolterodine Tartrate LA 4 MG CAP.ER.24H PO (09:16)
[2024-04-12] MEDS: Donepezil HCl 10 MG TABLET PO (09:16)
--- NOTE | 2024-04-12 14:00 | HO.PSYCHPN ---
Subjective Subjective Date of Service: 04/12/24 Reason For Visit: unspecified neurocognitive d/o Subjective Notes: Conditional Voluntary Interim History: The nursing staff reported the patient complained of back pain and received Tylenol with for improvement. He looks very confused but easily redirectable. Today we had a family meeting on line with her daughters and explained about his diagnosis. He is has a diagnosis of dementia treated with Aricept and Namenda recently increased. We added a low dose of Haldol to avoid sundowning. Still very confused but redirectable. Mental Status Exam Mental Status Exam Patient Appearance: Appropriate Patient Orientation: Person and Situation Level of Consciousness: Awake and Appropriate Patient Behavior: Guarded and Passive Mood Description: Withdrawn Affect Description: Constricted Patient Cognition Impaired: Yes Ability to Follow Directions: Good Speech Pattern: Clear Hallucinations: None Delusions: Paranoid Ideation and Ideas of Reference Thought Process: Distracted and Slowed Thinking Thought Content: positive for [place] and positive for Poverty of Content Judgement: Poor Diagnostics Vital Signs (24Hr): Vital Signs - 24 hr 04/11/24 19:25 04/12/24 08:00 Temperature 96.6 F L 98.2 F Pulse Rate 50 56 Respiratory Rate 16 Blood Pressure 92/52 L 123/66 Pulse Oximetry 95 97 Oxygen Delivery Method Room Air Room Air BMI result Body Mass Index 32.7 Labs 04/08/24 20:38 Medications Medications Current Medications Acetaminophen (Acetaminophen 325 Mg Tablet) 650 mg PO Q6H PRN PRN Reason: Headache/Pain Mild Scale (1-3) Last Admin: 04/11/24 14:50 Dose: 650 mg Al Hydroxide/Mg Hydroxide (Magnesium Hydrox/Alum Hydrox 30 Ml Oral.Susp) 30 ml PO Q6H PRN PRN Reason: Heartburn/Nausea Apixaban (Apixaban 5 Mg Tablet) 5 mg PO BID [facility] Last Admin: 04/12/24 09:16 Dose: 5 mg Diltiazem HCl (Diltiazem Hcl Cd 240 Mg Cap.Er.Deg) 240 mg PO DAILY [facility]; Protocol Last Admin: 04/12/24 11:15 Dose: Not Given Donepezil HCl (Donepezil Hcl 10 Mg Tablet) 10 mg PO DAILY [facility] Last Admin: 04/12/24 09:16 Dose: 10 mg Famotidine (Famotidine 20 Mg Tablet) 40 mg PO BEDTIME [facility] Last Admin: 04/11/24 20:20 Dose: 40 mg Furosemide (Furosemide 40 Mg Tablet) 40 mg PO DAILY [facility]; Protocol Last Admin: 04/12/24 09:15 Dose: 40 mg Haloperidol (Haloperidol 1 Mg Tablet) 1 mg PO DAILY@1630 [facility] Last Admin: 04/11/24 16:12 Dose: 1 mg Hydroxyzine HCl (Hydroxyzine Hcl 25 Mg Tablet) 25 mg PO Q6H PRN PRN Reason: Anxiety Last Admin: 04/10/24 19:59 Dose: 25 mg Latanoprost (Latanoprost 0.005 % Ophth Lupis 2.5 Ml Drops) 1 drop EYE-BOTH BEDTIME [facility] Last Admin: 04/11/24 20:21 Dose: 1 drop Levothyroxine Sodium (Levothyroxine Sodium 75 Mcg Tablet) 75 mcg PO DAILY@0600 [facility] Last Admin: 04/12/24 06:01 Dose: 75 mcg Lisinopril (Lisinopril 2.5 Mg Tablet) 2.5 mg PO DAILY [facility]; Protocol Last Admin: 04/12/24 09:16 Dose: 2.5 mg Magnesium Hydroxide (Milk Of Magnesia 30 Ml Oral.Susp) 30 ml PO DAILY PRN PRN Reason: Constipation Memantine (Memantine Hcl 5 Mg Tablet) 5 mg PO BID [facility] Last Admin: 04/12/24 09:15 Dose: 5 mg Metoprolol Succinate (Metoprolol Succinate Er 100 Mg Tab.Er.24h) 200 mg PO DAILY [facility]; Protocol Last Admin: 04/12/24 11:13 Dose: Not Given Olanzapine (Olanzapine 2.5 Mg Tablet) 2.5 mg PO Q4H PRN PRN Reason: Psychosis Omeprazole (Omeprazole 20 Mg Capsule.Dr) 20 mg PO BID@0630,1630 [facility] Last Admin: 04/12/24 06:01 Dose: 20 mg Potassium Chloride (Potassium Chloride Er 10 Meq Tablet.Er) 10 meq PO BID [facility] Last Admin: 04/12/24 09:15 Dose: 10 meq Pravastatin Sodium (Pravastatin Sodium 20 Mg Tablet) 20 mg PO DAILY [facility] Last Admin: 04/12/24 09:16 Dose: 20 mg Tolterodine Tartrate (Tolterodine Tartrate La 4 Mg Cap.Er.24h) 4 mg PO DAILY [facility] Last Admin: 04/12/24 09:16 Dose: 4 mg Trazodone HCl (Trazodone Hcl 50 Mg Tablet) 50 mg PO BEDTIME MRX1 PRN PRN Reason: Insomnia Last Admin: 04/10/24 19:59 Dose: 50 mg Allergies Allergies Allergy/AdvReac Type Severity Reaction Status Date / Time No Known Allergies Allergy Verified 04/08/24 19:16 Assessment & Plan Assessment & Plan (1) Dementia: Status: Acute Code(s): F03.90 - Unspecified dementia, unspecified severity, without behavioral disturbance, psychotic disturbance, mood disturbance, and anxiety (2) Psychosis: Status: Acute Code(s): F29 - Unspecified psychosis not due to a substance or known physiological condition Plan The patient is a 78-year-old male with a past history of high blood pressure, dementia, hypothyroidism and GERD referred from the emergency room of [facility] for exacerbation of psychosis in the context of worsening dementia. He had been calling the police regarding masked intruders in his home and disorganized behavior. Plan 1. Gather collateral information. 2. Continue 15 minutes checks. 3. Continue with medical workout. 4. We will start a low dose of Zyprexa 2.5 p.o. q.6 PRNs psychosis since he responded fairly well on the emergency room. 5. Referral for occupational therapist for cognitive impairment. He scored 3.2 on the Robby test 6. Haldol 1 mg at 04:00 o'clock to prevent sundowning. 7. Start Namenda 5 mg p.o. b.i.d. to target dementia. Reason for continued inpatient stay Substantial Risk for: inability to function, rapid decompensation and med/psych decompensation Time Spent With Patient Time: Total time managing care of this patient today __20__ minutes.
[2024-04-12] MEDS: HaloperidoL 1 MG TABLET PO (15:44)
--- NOTE | 2024-04-12 18:22 | PC.NURSE ---
Patient HR was 56 this morning, held Cardizem 240mg and Metoprolol 200mg, Dr. Escamilla notified.
[2024-04-12 20:00] VITALS: BP 127/68; PULSE 76; TEMP 36.6; O2SAT 96
[2024-04-12] MEDS: Famotidine 20 MG TABLET 40 MG PO (20:30)
[2024-04-12] MEDS: Latanoprost 0.005 % Ophth Sol 2.5 ML DROPS 1 DROP EYE-BOTH (20:30)
[2024-04-12] MEDS: traZODone HCL 50 MG TABLET PO (20:30)
[2024-04-12] MEDS: hydrOXYzine HCL 25 MG TABLET PO (20:30)
[2024-04-13] MEDS: Omeprazole 20 MG CAPSULE.DR PO ×2 (06:03→16:40)
[2024-04-13] MEDS: Levothyroxine Sodium 75 MCG TABLET PO (06:03)
[2024-04-13 08:31] VITALS: BP 135/80; PULSE 83; RESP 18; TEMP 36.3; O2SAT 96
[2024-04-13] MEDS: lisinopriL 2.5 MG TABLET PO (08:33)
[2024-04-13] MEDS: Metoprolol Succinate ER 100 MG TAB.ER.24H 200 MG PO (08:33)
[2024-04-13] MEDS: Furosemide 40 MG TABLET PO (08:33)
[2024-04-13] MEDS: Tolterodine Tartrate LA 4 MG CAP.ER.24H PO (08:33)
[2024-04-13] MEDS: Pravastatin Sodium 20 MG TABLET PO (08:33)
[2024-04-13] MEDS: Potassium Chloride ER 10 MEQ TABLET.ER PO ×2 (08:33→20:41)
[2024-04-13] MEDS: Donepezil HCl 10 MG TABLET PO (08:33)
[2024-04-13] MEDS: dilTIAZem HCL CD 240 MG CAP.ER.DEG PO (08:33)
[2024-04-13] MEDS: Apixaban 5 MG TABLET PO ×2 (08:33→20:40)
[2024-04-13] MEDS: Memantine HCl 5 MG TABLET PO ×2 (08:33→20:41)
--- NOTE | 2024-04-13 08:43 | HO.PSYCHPN ---
Subjective Subjective Date of Service: 04/13/24 Reason For Visit: unspecified neurocognitive d/o Subjective Notes: Conditional Voluntary Healthcare Proxy: Yes Medical Problems Affecting Mental Status: Yes (dementia) Interim History: 78 yo presents with ongoing confusion- only oriented x self- rambles but not coherent narrative- pleasant- incontinent urine- - using walker no complaints for provider and nursing reports patient slept- Medication Compliance: Yes Side effects from medications: No Attending Groups: Intermittent Review of Systems Acute medical concerns: No Medical Review of Systems: unchanged Mental Status Exam Mental Status Exam Patient Appearance: Appropriate Patient Orientation: Person Level of Consciousness: Awake Patient Behavior: Dependent, Passive and Good Eye Contact Mood Description: Calm Affect Description: Blunted Patient Cognition Impaired: Yes Ability to Follow Directions: Poor Speech Pattern: Rambling Thought Process: Distracted and Confusion Thought Content: positive for Disorganized Judgement: Poor Diagnostics Vital Signs (24Hr): Vital Signs - 24 hr 04/12/24 20:00 04/13/24 08:31 Temperature 97.8 F 97.3 F Pulse Rate 76 83 Respiratory Rate 18 Blood Pressure 127/68 135/80 Pulse Oximetry 96 96 Oxygen Delivery Method Room Air Room Air BMI result Body Mass Index 32.7 Labs 04/08/24 20:38 Medications Medications Current Medications Acetaminophen (Acetaminophen 325 Mg Tablet) 650 mg PO Q6H PRN PRN Reason: Headache/Pain Mild Scale (1-3) Last Admin: 04/11/24 14:50 Dose: 650 mg Al Hydroxide/Mg Hydroxide (Magnesium Hydrox/Alum Hydrox 30 Ml Oral.Susp) 30 ml PO Q6H PRN PRN Reason: Heartburn/Nausea Apixaban (Apixaban 5 Mg Tablet) 5 mg PO BID [facility] Last Admin: 04/13/24 08:33 Dose: 5 mg Diltiazem HCl (Diltiazem Hcl Cd 240 Mg Cap.Er.Deg) 240 mg PO DAILY [facility]; Protocol Last Admin: 04/13/24 08:33 Dose: 240 mg Donepezil HCl (Donepezil Hcl 10 Mg Tablet) 10 mg PO DAILY [facility] Last Admin: 04/13/24 08:33 Dose: 10 mg Famotidine (Famotidine 20 Mg Tablet) 40 mg PO BEDTIME [facility] Last Admin: 04/12/24 20:30 Dose: 40 mg Furosemide (Furosemide 40 Mg Tablet) 40 mg PO DAILY [facility]; Protocol Last Admin: 04/13/24 08:33 Dose: 40 mg Haloperidol (Haloperidol 1 Mg Tablet) 1 mg PO DAILY@1630 [facility] Last Admin: 04/12/24 15:44 Dose: 1 mg Hydroxyzine HCl (Hydroxyzine Hcl 25 Mg Tablet) 25 mg PO Q6H PRN PRN Reason: Anxiety Last Admin: 04/12/24 20:30 Dose: 25 mg Latanoprost (Latanoprost 0.005 % Ophth Lupis 2.5 Ml Drops) 1 drop EYE-BOTH BEDTIME [facility] Last Admin: 04/12/24 20:30 Dose: 1 drop Levothyroxine Sodium (Levothyroxine Sodium 75 Mcg Tablet) 75 mcg PO DAILY@0600 [facility] Last Admin: 04/13/24 06:03 Dose: 75 mcg Lisinopril (Lisinopril 2.5 Mg Tablet) 2.5 mg PO DAILY [facility]; Protocol Last Admin: 04/13/24 08:33 Dose: 2.5 mg Magnesium Hydroxide (Milk Of Magnesia 30 Ml Oral.Susp) 30 ml PO DAILY PRN PRN Reason: Constipation Memantine (Memantine Hcl 5 Mg Tablet) 5 mg PO BID [facility] Last Admin: 04/13/24 08:33 Dose: 5 mg Metoprolol Succinate (Metoprolol Succinate Er 100 Mg Tab.Er.24h) 200 mg PO DAILY [facility]; Protocol Last Admin: 04/13/24 08:33 Dose: 200 mg Olanzapine (Olanzapine 2.5 Mg Tablet) 2.5 mg PO Q4H PRN PRN Reason: Psychosis Omeprazole (Omeprazole 20 Mg Capsule.Dr) 20 mg PO BID@0630,1630 [facility] Last Admin: 04/13/24 06:03 Dose: 20 mg Potassium Chloride (Potassium Chloride Er 10 Meq Tablet.Er) 10 meq PO BID [facility] Last Admin: 04/13/24 08:33 Dose: 10 meq Pravastatin Sodium (Pravastatin Sodium 20 Mg Tablet) 20 mg PO DAILY [facility] Last Admin: 04/13/24 08:33 Dose: 20 mg Tolterodine Tartrate (Tolterodine Tartrate La 4 Mg Cap.Er.24h) 4 mg PO DAILY [facility] Last Admin: 04/13/24 08:33 Dose: 4 mg Trazodone HCl (Trazodone Hcl 50 Mg Tablet) 50 mg PO BEDTIME MRX1 PRN PRN Reason: Insomnia Last Admin: 04/12/24 20:30 Dose: 50 mg Allergies Allergies Allergy/AdvReac Type Severity Reaction Status Date / Time No Known Allergies Allergy Verified 04/08/24 19:16 Assessment & Plan Assessment & Plan (1) Dementia: Status: Acute Code(s): F03.90 - Unspecified dementia, unspecified severity, without behavioral disturbance, psychotic disturbance, mood disturbance, and anxiety (2) Psychosis: Status: Acute Code(s): F29 - Unspecified psychosis not due to a substance or known physiological condition Plan The patient is a 78-year-old male with a past history of high blood pressure, dementia, hypothyroidism and GERD referred from the emergency room of [facility] for exacerbation of psychosis in the context of worsening dementia. He had been calling the police regarding masked intruders in his home and disorganized behavior. Plan 1. Gather collateral information. 2. Continue 15 minutes checks. 3. Continue with medical workout. 4. We will start a low dose of Zyprexa 2.5 p.o. q.6 PRNs psychosis since he responded fairly well on the emergency room. 5. Referral for occupational therapist for cognitive impairment. He scored 3.2 on the Robby test 6. Haldol 1 mg at 04:00 o'clock to prevent sundowning. 7. Start Namenda 5 mg p.o. b.i.d. to target dementia. Reason for continued inpatient stay Substantial Risk for: rapid decompensation and med/psych decompensation Time Spent With Patient Time: Total time managing care of this patient today ____ minutes.
[2024-04-13] MEDS: HaloperidoL 1 MG TABLET PO (16:40)
[2024-04-13 20:00] VITALS: BP 94/56; PULSE 59; RESP 18; TEMP 36.4; O2SAT 95
[2024-04-13] MEDS: Famotidine 20 MG TABLET 40 MG PO (20:40)
[2024-04-13] MEDS: Latanoprost 0.005 % Ophth Sol 2.5 ML DROPS 1 DROP EYE-BOTH (20:40)
[2024-04-14] MEDS: Omeprazole 20 MG CAPSULE.DR PO ×2 (06:12→16:34)
[2024-04-14] MEDS: Levothyroxine Sodium 75 MCG TABLET PO (06:12)
[2024-04-14 08:48] VITALS: BP 114/68; PULSE 55; RESP 19; TEMP 36.2; O2SAT 95
[2024-04-14] MEDS: dilTIAZem HCL CD 240 MG CAP.ER.DEG PO (08:51)
[2024-04-14] MEDS: Memantine HCl 5 MG TABLET PO ×2 (08:51→20:27)
[2024-04-14] MEDS: Potassium Chloride ER 10 MEQ TABLET.ER PO ×2 (08:51→20:27)
[2024-04-14] MEDS: Furosemide 40 MG TABLET PO (08:51)
[2024-04-14] MEDS: Donepezil HCl 10 MG TABLET PO (08:51)
[2024-04-14] MEDS: Tolterodine Tartrate LA 4 MG CAP.ER.24H PO (08:51)
[2024-04-14] MEDS: Metoprolol Succinate ER 100 MG TAB.ER.24H 200 MG PO (08:51)
[2024-04-14] MEDS: Apixaban 5 MG TABLET PO ×2 (08:51→20:27)
[2024-04-14] MEDS: Pravastatin Sodium 20 MG TABLET PO (08:51)
[2024-04-14] MEDS: lisinopriL 2.5 MG TABLET PO (08:51)
--- NOTE | 2024-04-14 12:07 | P.PNPSI_ITS ---
Subjective Subjective Date of Service: 04/14/24 Reason For Visit: unspecified neurocognitive d/o Subjective Notes: Conditional Voluntary (hcp) Healthcare Proxy: Yes Medical Problems Affecting Mental Status: Yes (progressive dementia) Interim History: 78 yo with ongoing dementia- unable to follow line of conversation, denying complaints- no behavior issues currently Medication Compliance: Yes Side effects from medications: No Attending Groups: Intermittent Review of Systems Acute medical concerns: No Medical Review of Systems: unchanged Mental Status Exam Mental Status Exam Patient Appearance: Appropriate Patient Orientation: Person Level of Consciousness: Awake Patient Behavior: Appropriate and Good Eye Contact Mood Description: Calm Affect Description: Blunted Patient Cognition Impaired: Yes Ability to Follow Directions: Fair (-poor depending on what is asked) Speech Pattern: Rambling Hallucinations: None Delusions: Not Present Thought Content: positive for Disorganized Judgement: Poor Diagnostics Vital Signs (24Hr): Vital Signs - 24 hr 04/13/24 20:00 04/14/24 08:48 Temperature 97.6 F 97.1 F Pulse Rate 59 55 Respiratory Rate 18 19 Blood Pressure 94/56 L 114/68 Pulse Oximetry 95 95 Oxygen Delivery Method Room Air Room Air BMI result Body Mass Index 32.7 Labs 04/08/24 20:38 Medications Medications Current Medications Acetaminophen (Acetaminophen 325 Mg Tablet) 650 mg PO Q6H PRN PRN Reason: Headache/Pain Mild Scale (1-3) Last Admin: 04/11/24 14:50 Dose: 650 mg Al Hydroxide/Mg Hydroxide (Magnesium Hydrox/Alum Hydrox 30 Ml Oral.Susp) 30 ml PO Q6H PRN PRN Reason: Heartburn/Nausea Apixaban (Apixaban 5 Mg Tablet) 5 mg PO BID [facility]PL[facility] Last Admin: 04/14/24 08:51 Dose: 5 mg Diltiazem HCl (Diltiazem Hcl Cd 240 Mg Cap.Er.Deg) 240 mg PO DAILY [facility]; Protocol Last Admin: 04/14/24 08:51 Dose: 240 mg Donepezil HCl (Donepezil Hcl 10 Mg Tablet) 10 mg PO DAILY [facility] Last Admin: 04/14/24 08:51 Dose: 10 mg Famotidine (Famotidine 20 Mg Tablet) 40 mg PO BEDTIME [facility] Last Admin: 04/13/24 20:40 Dose: 40 mg Furosemide (Furosemide 40 Mg Tablet) 40 mg PO DAILY [facility]; Protocol Last Admin: 04/14/24 08:51 Dose: 40 mg Haloperidol (Haloperidol 1 Mg Tablet) 1 mg PO DAILY@1630 [facility] Last Admin: 04/13/24 16:40 Dose: 1 mg Hydroxyzine HCl (Hydroxyzine Hcl 25 Mg Tablet) 25 mg PO Q6H PRN PRN Reason: Anxiety Last Admin: 04/12/24 20:30 Dose: 25 mg Latanoprost (Latanoprost 0.005 % Ophth Lupis 2.5 Ml Drops) 1 drop EYE-BOTH BEDTIME [facility] Last Admin: 04/13/24 20:40 Dose: 1 drop Levothyroxine Sodium (Levothyroxine Sodium 75 Mcg Tablet) 75 mcg PO DAILY@0600 [facility] Last Admin: 04/14/24 06:12 Dose: 75 mcg Lisinopril (Lisinopril 2.5 Mg Tablet) 2.5 mg PO DAILY [facility]; Protocol Last Admin: 04/14/24 08:51 Dose: 2.5 mg Magnesium Hydroxide (Milk Of Magnesia 30 Ml Oral.Susp) 30 ml PO DAILY PRN PRN Reason: Constipation Memantine (Memantine Hcl 5 Mg Tablet) 5 mg PO BID [facility] Last Admin: 04/14/24 08:51 Dose: 5 mg Metoprolol Succinate (Metoprolol Succinate Er 100 Mg Tab.Er.24h) 200 mg PO DAILY [facility]; Protocol Last Admin: 04/14/24 08:51 Dose: 200 mg Olanzapine (Olanzapine 2.5 Mg Tablet) 2.5 mg PO Q4H PRN PRN Reason: Psychosis Omeprazole (Omeprazole 20 Mg Capsule.Dr) 20 mg PO BID@0630,1630 [facility] Last Admin: 04/14/24 06:12 Dose: 20 mg Potassium Chloride (Potassium Chloride Er 10 Meq Tablet.Er) 10 meq PO BID [facility]PL[facility] Last Admin: 04/14/24 08:51 Dose: 10 meq Pravastatin Sodium (Pravastatin Sodium 20 Mg Tablet) 20 mg PO DAILY [facility] Last Admin: 04/14/24 08:51 Dose: 20 mg Tolterodine Tartrate (Tolterodine Tartrate La 4 Mg Cap.Er.24h) 4 mg PO DAILY [facility] Last Admin: 04/14/24 08:51 Dose: 4 mg Trazodone HCl (Trazodone Hcl 50 Mg Tablet) 50 mg PO BEDTIME MRX1 PRN PRN Reason: Insomnia Last Admin: 04/12/24 20:30 Dose: 50 mg Allergies Allergies Allergy/AdvReac Type Severity Reaction Status Date / Time No Known Allergies Allergy Verified 04/08/24 19:16 Assessment & Plan Assessment & Plan (1) Dementia: Status: Acute Code(s): F03.90 - Unspecified dementia, unspecified severity, without behavioral disturbance, psychotic disturbance, mood disturbance, and anxiety (2) Psychosis: Status: Acute Code(s): F29 - Unspecified psychosis not due to a substance or known physiological condition Plan The patient is a 78-year-old male with a past history of high blood pressure, dementia, hypothyroidism and GERD referred from the emergency room of [facility] for exacerbation of psychosis in the context of worsening dementia. He had been calling the police regarding masked intruders in his home and disorganized behavior. Plan 1. Gather collateral information. 2. Continue 15 minutes checks. 3. Continue with medical workout. 4. We will start a low dose of Zyprexa 2.5 p.o. q.6 PRNs psychosis since he responded fairly well on the emergency room. 5. Referral for occupational therapist for cognitive impairment. He scored 3.2 on the Robby test 6. Haldol 1 mg at 04:00 o'clock to prevent sundowning. 7. Start Namenda 5 mg p.o. b.i.d. to target dementia. Reason for continued inpatient stay Substantial Risk for: rapid decompensation and med/psych decompensation Time Spent With Patient Time: Total time managing care of this patient today ____ minutes.
[2024-04-14] MEDS: HaloperidoL 1 MG TABLET PO (16:34)
[2024-04-14 20:00] VITALS: BP 117/59; PULSE 55; RESP 18; TEMP 36.2; O2SAT 95
[2024-04-14] MEDS: Latanoprost 0.005 % Ophth Sol 2.5 ML DROPS 1 DROP EYE-BOTH (20:27)
[2024-04-14] MEDS: Famotidine 20 MG TABLET 40 MG PO (20:27)
[2024-04-15] MEDS: Levothyroxine Sodium 75 MCG TABLET PO (05:57)
[2024-04-15] MEDS: Omeprazole 20 MG CAPSULE.DR PO ×2 (05:57→15:58)
[2024-04-15 08:00] VITALS: BP 122/65; PULSE 60; RESP 16; TEMP 36.1; O2SAT 96
[2024-04-15] MEDS: Apixaban 5 MG TABLET PO ×2 (08:39→20:34)
[2024-04-15] MEDS: Potassium Chloride ER 10 MEQ TABLET.ER PO ×2 (08:39→20:33)
[2024-04-15] MEDS: Tolterodine Tartrate LA 4 MG CAP.ER.24H PO (08:39)
[2024-04-15] MEDS: Memantine HCl 5 MG TABLET PO ×2 (08:39→20:34)
[2024-04-15 08:40] VITALS: BP 122/65; PULSE 60
[2024-04-15] MEDS: Pravastatin Sodium 20 MG TABLET PO (08:40)
[2024-04-15] MEDS: Metoprolol Succinate ER 100 MG TAB.ER.24H 200 MG PO (08:40)
[2024-04-15] MEDS: Donepezil HCl 10 MG TABLET PO (08:41)
[2024-04-15] MEDS: Furosemide 40 MG TABLET PO (08:41)
[2024-04-15] MEDS: dilTIAZem HCL CD 240 MG CAP.ER.DEG PO (08:41)
[2024-04-15 08:42] VITALS: BP 122/65
[2024-04-15] MEDS: lisinopriL 2.5 MG TABLET PO (08:42)
--- NOTE | 2024-04-15 14:43 | HO.PSYCHPN ---
Subjective Subjective Date of Service: 04/15/24 Reason For Visit: unspecified neurocognitive d/o Subjective Notes: Conditional Voluntary Interim History: The nursing staff reported the patient slept 8 hours he had been compliant with treatment. The dialysis social worker reported the assisted living facility months him to be transferred to a subacute rehab. I ordered a PT consult. On interview the patient denies new symptoms pleasant cooperative confused but easily redirectable. Mental Status Exam Mental Status Exam Patient Appearance: Appropriate Patient Orientation: Person Level of Consciousness: Awake and Appropriate Patient Behavior: Guarded and Passive Mood Description: Calm Affect Description: Constricted Patient Cognition Impaired: Yes Ability to Follow Directions: Good Speech Pattern: Clear Hallucinations: None Delusions: Ideas of Reference Thought Process: Distracted and Slowed Thinking Thought Content: positive for [place] and positive for Poverty of Content Judgement: Poor Diagnostics Vital Signs (24Hr): Vital Signs - 24 hr 04/14/24 20:00 04/15/24 08:00 04/15/24 08:40 Temperature 97.1 F 97.0 F Pulse Rate 55 60 60 Respiratory Rate 18 16 Blood Pressure 117/59 L 122/65 122/65 Pulse Oximetry 95 96 Oxygen Delivery Method Room Air Room Air 04/15/24 08:42 Temperature Pulse Rate Respiratory Rate Blood Pressure 122/65 Pulse Oximetry Oxygen Delivery Method BMI result Body Mass Index 32.7 Labs 04/08/24 20:38 Medications Medications Current Medications Acetaminophen (Acetaminophen 325 Mg Tablet) 650 mg PO Q6H PRN PRN Reason: Headache/Pain Mild Scale (1-3) Last Admin: 04/11/24 14:50 Dose: 650 mg Al Hydroxide/Mg Hydroxide (Magnesium Hydrox/Alum Hydrox 30 Ml Oral.Susp) 30 ml PO Q6H PRN PRN Reason: Heartburn/Nausea Apixaban (Apixaban 5 Mg Tablet) 5 mg PO BID COUNT [facility]CLUDES [facility] Last Admin: 04/15/24 08:39 Dose: 5 mg Diltiazem HCl (Diltiazem Hcl Cd 240 Mg Cap.Er.Deg) 240 mg PO DAILY [facility]; Protocol Last Admin: 04/15/24 08:41 Dose: 240 mg Donepezil HCl (Donepezil Hcl 10 Mg Tablet) 10 mg PO DAILY [facility] Last Admin: 04/15/24 08:41 Dose: 10 mg Famotidine (Famotidine 20 Mg Tablet) 40 mg PO BEDTIME [facility]CLUD[facility] Last Admin: 04/14/24 20:27 Dose: 40 mg Furosemide (Furosemide 40 Mg Tablet) 40 mg PO DAILY [facility]; Protocol Last Admin: 04/15/24 08:41 Dose: 40 mg Haloperidol (Haloperidol 1 Mg Tablet) 1 mg PO DAILY@1630 [facility] Last Admin: 04/14/24 16:34 Dose: 1 mg Hydroxyzine HCl (Hydroxyzine Hcl 25 Mg Tablet) 25 mg PO Q6H PRN PRN Reason: Anxiety Last Admin: 04/12/24 20:30 Dose: 25 mg Latanoprost (Latanoprost 0.005 % Ophth Lupis 2.5 Ml Drops) 1 drop EYE-BOTH BEDTIME COUNT [facility]CLUDES [facility] Last Admin: 04/14/24 20:27 Dose: 1 drop Levothyroxine Sodium (Levothyroxine Sodium 75 Mcg Tablet) 75 mcg PO DAILY@0600 [facility] Last Admin: 04/15/24 05:57 Dose: 75 mcg Lisinopril (Lisinopril 2.5 Mg Tablet) 2.5 mg PO DAILY [facility]; Protocol Last Admin: 04/15/24 08:42 Dose: 2.5 mg Magnesium Hydroxide (Milk Of Magnesia 30 Ml Oral.Susp) 30 ml PO DAILY PRN PRN Reason: Constipation Memantine (Memantine Hcl 5 Mg Tablet) 5 mg PO BID [facility]CLUD[facility] Last Admin: 04/15/24 08:39 Dose: 5 mg Metoprolol Succinate (Metoprolol Succinate Er 100 Mg Tab.Er.24h) 200 mg PO DAILY [facility]; Protocol Last Admin: 04/15/24 08:40 Dose: 200 mg Olanzapine (Olanzapine 2.5 Mg Tablet) 2.5 mg PO Q4H PRN PRN Reason: Psychosis Omeprazole (Omeprazole 20 Mg Capsule.Dr) 20 mg PO BID@0630,1630 [facility] Last Admin: 04/15/24 05:57 Dose: 20 mg Potassium Chloride (Potassium Chloride Er 10 Meq Tablet.Er) 10 meq PO BID COUNT [facility]CLUDES [facility] Last Admin: 04/15/24 08:39 Dose: 10 meq Pravastatin Sodium (Pravastatin Sodium 20 Mg Tablet) 20 mg PO DAILY [facility] Last Admin: 04/15/24 08:40 Dose: 20 mg Tolterodine Tartrate (Tolterodine Tartrate La 4 Mg Cap.Er.24h) 4 mg PO DAILY [facility] Last Admin: 04/15/24 08:39 Dose: 4 mg Trazodone HCl (Trazodone Hcl 50 Mg Tablet) 50 mg PO BEDTIME MRX1 PRN PRN Reason: Insomnia Last Admin: 04/12/24 20:30 Dose: 50 mg Allergies Allergies Allergy/AdvReac Type Severity Reaction Status Date / Time No Known Allergies Allergy Verified 04/08/24 19:16 Assessment & Plan Assessment & Plan (1) Dementia: Status: Acute Code(s): F03.90 - Unspecified dementia, unspecified severity, without behavioral disturbance, psychotic disturbance, mood disturbance, and anxiety (2) Psychosis: Status: Acute Code(s): F29 - Unspecified psychosis not due to a substance or known physiological condition Plan The patient is a 78-year-old male with a past history of high blood pressure, dementia, hypothyroidism and GERD referred from the emergency room of [facility] for exacerbation of psychosis in the context of worsening dementia. He had been calling the police regarding masked intruders in his home and disorganized behavior. Plan 1. Gather collateral information. 2. Continue 15 minutes checks. 3. Continue with medical workout. 4. We will start a low dose of Zyprexa 2.5 p.o. q.6 PRNs psychosis since he responded fairly well on the emergency room. 5. Referral for occupational therapist for cognitive impairment. He scored 3.2 on the Robby test 6. Haldol 1 mg at 04:00 o'clock to prevent sundowning. 7. Start Namenda 5 mg p.o. b.i.d. to target dementia. Reason for continued inpatient stay Substantial Risk for: inability to function, rapid decompensation and med/psych decompensation Time Spent With Patient Time: Total time managing care of this patient today __20__ minutes.
[2024-04-15] MEDS: HaloperidoL 1 MG TABLET PO (15:58)
[2024-04-15 20:00] VITALS: BP 110/81; PULSE 58; RESP 16; O2SAT 95
[2024-04-15] MEDS: Famotidine 20 MG TABLET 40 MG PO (20:33)
[2024-04-15] MEDS: traZODone HCL 50 MG TABLET PO (20:33)
[2024-04-15] MEDS: hydrOXYzine HCL 25 MG TABLET PO (20:33)
[2024-04-15] MEDS: Latanoprost 0.005 % Ophth Sol 2.5 ML DROPS 1 DROP EYE-BOTH (20:34)
[2024-04-16] MEDS: Omeprazole 20 MG CAPSULE.DR PO ×2 (06:31→16:30)
[2024-04-16] MEDS: Levothyroxine Sodium 75 MCG TABLET PO (06:31)
[2024-04-16 08:18] VITALS: BP 130/71; PULSE 62; RESP 18; TEMP 35.8; O2SAT 96
[2024-04-16] MEDS: Metoprolol Succinate ER 100 MG TAB.ER.24H 200 MG PO (08:56)
[2024-04-16] MEDS: Tolterodine Tartrate LA 4 MG CAP.ER.24H PO (08:56)
[2024-04-16] MEDS: dilTIAZem HCL CD 240 MG CAP.ER.DEG PO (08:56)
[2024-04-16] MEDS: Furosemide 40 MG TABLET PO (08:57)
[2024-04-16] MEDS: Potassium Chloride ER 10 MEQ TABLET.ER PO ×2 (08:57→20:42)
[2024-04-16] MEDS: Pravastatin Sodium 20 MG TABLET PO (08:57)
[2024-04-16] MEDS: Memantine HCl 5 MG TABLET PO ×2 (08:57→20:42)
[2024-04-16] MEDS: lisinopriL 2.5 MG TABLET PO (08:58)
[2024-04-16] MEDS: Apixaban 5 MG TABLET PO ×2 (08:58→20:42)
[2024-04-16] MEDS: Donepezil HCl 10 MG TABLET PO (09:01)
--- NOTE | 2024-04-16 14:49 | P.PNPSI_ITS ---
Subjective Subjective Date of Service: 04/16/24 Reason For Visit: unspecified neurocognitive d/o Subjective Notes: Conditional Voluntary Interim History: The nursing staff reported the patient had been pleasantly confused compliant with medications he slept 7 hours. On interview the patient is grossly confused but easily redirectable pleasant and cooperative. Mental Status Exam Mental Status Exam Patient Appearance: Appropriate Patient Orientation: Person and Situation Level of Consciousness: Awake Patient Behavior: Guarded and Passive Mood Description: Withdrawn Affect Description: Constricted Patient Cognition Impaired: Yes Ability to Follow Directions: Good Speech Pattern: Clear Hallucinations: None Delusions: Paranoid Ideation and Ideas of Reference Thought Process: Distracted and Slowed Thinking Thought Content: positive for [place] and positive for Poverty of Content Judgement: Fair Diagnostics Vital Signs (24Hr): Vital Signs - 24 hr 04/15/24 20:00 04/16/24 08:18 Temperature 96.4 F L Pulse Rate 58 62 Respiratory Rate 16 18 Blood Pressure 110/81 130/71 Pulse Oximetry 95 96 Oxygen Delivery Method Room Air Room Air BMI result Body Mass Index 32.7 Labs 04/08/24 20:38 Medications Medications Current Medications Acetaminophen (Acetaminophen 325 Mg Tablet) 650 mg PO Q6H PRN PRN Reason: Headache/Pain Mild Scale (1-3) Last Admin: 04/11/24 14:50 Dose: 650 mg Al Hydroxide/Mg Hydroxide (Magnesium Hydrox/Alum Hydrox 30 Ml Oral.Susp) 30 ml PO Q6H PRN PRN Reason: Heartburn/Nausea Apixaban (Apixaban 5 Mg Tablet) 5 mg PO BID [facility] Last Admin: 04/16/24 08:58 Dose: 5 mg Diltiazem HCl (Diltiazem Hcl Cd 240 Mg Cap.Er.Deg) 240 mg PO DAILY [facility]; Protocol Last Admin: 04/16/24 08:56 Dose: 240 mg Donepezil HCl (Donepezil Hcl 10 Mg Tablet) 10 mg PO DAILY [facility] Last Admin: 04/16/24 09:01 Dose: 10 mg Famotidine (Famotidine 20 Mg Tablet) 40 mg PO BEDTIME [facility] Last Admin: 04/15/24 20:33 Dose: 40 mg Furosemide (Furosemide 40 Mg Tablet) 40 mg PO DAILY [facility]; Protocol Last Admin: 04/16/24 08:57 Dose: 40 mg Haloperidol (Haloperidol 1 Mg Tablet) 1 mg PO DAILY@1630 [facility] Last Admin: 04/15/24 15:58 Dose: 1 mg Hydroxyzine HCl (Hydroxyzine Hcl 25 Mg Tablet) 25 mg PO Q6H PRN PRN Reason: Anxiety Last Admin: 04/15/24 20:33 Dose: 25 mg Latanoprost (Latanoprost 0.005 % Ophth Lupis 2.5 Ml Drops) 1 drop EYE-BOTH BEDTIME [facility] Last Admin: 04/15/24 20:34 Dose: 1 drop Levothyroxine Sodium (Levothyroxine Sodium 75 Mcg Tablet) 75 mcg PO DAILY@0600 [facility] Last Admin: 04/16/24 06:31 Dose: 75 mcg Lisinopril (Lisinopril 2.5 Mg Tablet) 2.5 mg PO DAILY [facility]; Protocol Last Admin: 04/16/24 08:58 Dose: 2.5 mg Magnesium Hydroxide (Milk Of Magnesia 30 Ml Oral.Susp) 30 ml PO DAILY PRN PRN Reason: Constipation Memantine (Memantine Hcl 5 Mg Tablet) 5 mg PO BID [facility] Last Admin: 04/16/24 08:57 Dose: 5 mg Metoprolol Succinate (Metoprolol Succinate Er 100 Mg Tab.Er.24h) 200 mg PO DAILY [facility]; Protocol Last Admin: 04/16/24 08:56 Dose: 200 mg Olanzapine (Olanzapine 2.5 Mg Tablet) 2.5 mg PO Q4H PRN PRN Reason: Psychosis Omeprazole (Omeprazole 20 Mg Capsule.Dr) 20 mg PO BID@0630,1630 [facility] Last Admin: 04/16/24 06:31 Dose: 20 mg Potassium Chloride (Potassium Chloride Er 10 Meq Tablet.Er) 10 meq PO BID [facility] Last Admin: 04/16/24 08:57 Dose: 10 meq Pravastatin Sodium (Pravastatin Sodium 20 Mg Tablet) 20 mg PO DAILY [facility] Last Admin: 04/16/24 08:57 Dose: 20 mg Tolterodine Tartrate (Tolterodine Tartrate La 4 Mg Cap.Er.24h) 4 mg PO DAILY [facility] Last Admin: 04/16/24 08:56 Dose: 4 mg Trazodone HCl (Trazodone Hcl 50 Mg Tablet) 50 mg PO BEDTIME MRX1 PRN PRN Reason: Insomnia Last Admin: 04/15/24 20:33 Dose: 50 mg Allergies Allergies Allergy/AdvReac Type Severity Reaction Status Date / Time No Known Allergies Allergy Verified 04/08/24 19:16 Assessment & Plan Assessment & Plan (1) Dementia: Status: Acute Code(s): F03.90 - Unspecified dementia, unspecified severity, without behavioral disturbance, psychotic disturbance, mood disturbance, and anxiety (2) Psychosis: Status: Acute Code(s): F29 - Unspecified psychosis not due to a substance or known physiological condition Plan The patient is a 78-year-old male with a past history of high blood pressure, dementia, hypothyroidism and GERD referred from the emergency room of [facility] for exacerbation of psychosis in the context of worsening dementia. He had been calling the police regarding masked intruders in his home and disorganized behavior. Plan 1. Gather collateral information. 2. Continue 15 minutes checks. 3. Continue with medical workout. 4. We will start a low dose of Zyprexa 2.5 p.o. q.6 PRNs psychosis since he responded fairly well on the emergency room. 5. Referral for occupational therapist for cognitive impairment. He scored 3.2 on the Robby test 6. Haldol 1 mg at 04:00 o'clock to prevent sundowning. 7. Start Namenda 5 mg p.o. b.i.d. to target dementia. Reason for continued inpatient stay Substantial Risk for: inability to function, rapid decompensation and med/psych decompensation Time Spent With Patient Time: Total time managing care of this patient today __20__ minutes.
[2024-04-16] MEDS: HaloperidoL 1 MG TABLET PO (16:30)
[2024-04-16 19:53] VITALS: BP 138/77; PULSE 60; TEMP 36.1; O2SAT 99
[2024-04-16] MEDS: Famotidine 20 MG TABLET 40 MG PO (20:41)
[2024-04-16] MEDS: Latanoprost 0.005 % Ophth Sol 2.5 ML DROPS 1 DROP EYE-BOTH (20:43)
[2024-04-17] MEDS: Omeprazole 20 MG CAPSULE.DR PO ×2 (06:12→16:35)
[2024-04-17] MEDS: Levothyroxine Sodium 75 MCG TABLET PO (06:12)
[2024-04-17 08:31] VITALS: BP 114/68; PULSE 55; RESP 18; TEMP 36.8; O2SAT 96
[2024-04-17] MEDS: Tolterodine Tartrate LA 4 MG CAP.ER.24H PO (08:33)
[2024-04-17] MEDS: Pravastatin Sodium 20 MG TABLET PO (08:33)
[2024-04-17] MEDS: Memantine HCl 5 MG TABLET PO (08:34)
[2024-04-17] MEDS: Potassium Chloride ER 10 MEQ TABLET.ER PO ×2 (08:34→20:19)
[2024-04-17] MEDS: Furosemide 40 MG TABLET PO (08:35)
[2024-04-17] MEDS: Donepezil HCl 10 MG TABLET PO (08:35)
[2024-04-17] MEDS: lisinopriL 2.5 MG TABLET PO (08:35)
[2024-04-17] MEDS: Apixaban 5 MG TABLET PO ×2 (08:35→20:19)
--- NOTE | 2024-04-17 13:13 | P.PNPSI_ITS ---
Subjective Subjective Date of Service: 04/17/24 Reason For Visit: unspecified neurocognitive d/o Subjective Notes: Conditional Voluntary Interim History: The nursing staff reported the patient had been confused, pleasant cooperative. The psych social worker started referral for long-term facilities. On interview the patient is pleasantly confused, we are going to increase Namenda to 10 mg p.o. b.i.d. for Mental Status Exam Mental Status Exam Patient Appearance: Appropriate Patient Orientation: Person and Situation Level of Consciousness: Awake Patient Behavior: Guarded and Passive Mood Description: Withdrawn Affect Description: Constricted Patient Cognition Impaired: Yes Ability to Follow Directions: Good Speech Pattern: Clear Hallucinations: None Delusions: Paranoid Ideation and Ideas of Reference Thought Process: Distracted and Slowed Thinking Thought Content: positive for [place] and positive for Poverty of Content Judgement: Fair Diagnostics Vital Signs (24Hr): Vital Signs - 24 hr 04/16/24 19:53 04/17/24 08:31 Temperature 96.9 F 98.2 F Pulse Rate 60 55 Respiratory Rate 18 Blood Pressure 138/77 114/68 Pulse Oximetry 99 96 Oxygen Delivery Method Room Air Room Air BMI result Body Mass Index 32.7 Labs 04/08/24 20:38 Medications Medications Current Medications Acetaminophen (Acetaminophen 325 Mg Tablet) 650 mg PO Q6H PRN PRN Reason: Headache/Pain Mild Scale (1-3) Last Admin: 04/11/24 14:50 Dose: 650 mg Al Hydroxide/Mg Hydroxide (Magnesium Hydrox/Alum Hydrox 30 Ml Oral.Susp) 30 ml PO Q6H PRN PRN Reason: Heartburn/Nausea Apixaban (Apixaban 5 Mg Tablet) 5 mg PO BID [facility] Last Admin: 04/17/24 08:35 Dose: 5 mg Diltiazem HCl (Diltiazem Hcl Cd 240 Mg Cap.Er.Deg) 240 mg PO DAILY [facility]; Protocol Last Admin: 04/17/24 08:34 Dose: Not Given Donepezil HCl (Donepezil Hcl 10 Mg Tablet) 10 mg PO DAILY [facility] Last Admin: 04/17/24 08:35 Dose: 10 mg Famotidine (Famotidine 20 Mg Tablet) 40 mg PO BEDTIME [facility] Last Admin: 04/16/24 20:41 Dose: 40 mg Furosemide (Furosemide 40 Mg Tablet) 40 mg PO DAILY [facility]; Protocol Last Admin: 04/17/24 08:35 Dose: 40 mg Haloperidol (Haloperidol 1 Mg Tablet) 1 mg PO DAILY@1630 [facility] Last Admin: 04/16/24 16:30 Dose: 1 mg Hydroxyzine HCl (Hydroxyzine Hcl 25 Mg Tablet) 25 mg PO Q6H PRN PRN Reason: Anxiety Last Admin: 04/15/24 20:33 Dose: 25 mg Latanoprost (Latanoprost 0.005 % Ophth Lupis 2.5 Ml Drops) 1 drop EYE-BOTH BEDTIME [facility] Last Admin: 04/16/24 20:43 Dose: 1 drop Levothyroxine Sodium (Levothyroxine Sodium 75 Mcg Tablet) 75 mcg PO DAILY@0600 [facility] Last Admin: 04/17/24 06:12 Dose: 75 mcg Lisinopril (Lisinopril 2.5 Mg Tablet) 2.5 mg PO DAILY [facility]; Protocol Last Admin: 04/17/24 08:35 Dose: 2.5 mg Magnesium Hydroxide (Milk Of Magnesia 30 Ml Oral.Susp) 30 ml PO DAILY PRN PRN Reason: Constipation Memantine (Memantine Hcl 10 Mg Tablet) 10 mg PO BID [facility] Metoprolol Succinate (Metoprolol Succinate Er 100 Mg Tab.Er.24h) 200 mg PO DAILY [facility]; Protocol Last Admin: 04/17/24 08:34 Dose: Not Given Olanzapine (Olanzapine 2.5 Mg Tablet) 2.5 mg PO Q4H PRN PRN Reason: Psychosis Omeprazole (Omeprazole 20 Mg Capsule.Dr) 20 mg PO BID@0630,1630 [facility] Last Admin: 04/17/24 06:12 Dose: 20 mg Potassium Chloride (Potassium Chloride Er 10 Meq Tablet.Er) 10 meq PO BID [facility] Last Admin: 04/17/24 08:34 Dose: 10 meq Pravastatin Sodium (Pravastatin Sodium 20 Mg Tablet) 20 mg PO DAILY [facility] Last Admin: 04/17/24 08:33 Dose: 20 mg Tolterodine Tartrate (Tolterodine Tartrate La 4 Mg Cap.Er.24h) 4 mg PO DAILY [facility] Last Admin: 04/17/24 08:33 Dose: 4 mg Trazodone HCl (Trazodone Hcl 50 Mg Tablet) 50 mg PO BEDTIME MRX1 PRN PRN Reason: Insomnia Last Admin: 04/15/24 20:33 Dose: 50 mg Allergies Allergies Allergy/AdvReac Type Severity Reaction Status Date / Time No Known Allergies Allergy Verified 04/08/24 19:16 Assessment & Plan Assessment & Plan (1) Dementia: Status: Acute Code(s): F03.90 - Unspecified dementia, unspecified severity, without behavioral disturbance, psychotic disturbance, mood disturbance, and anxiety (2) Psychosis: Status: Acute Code(s): F29 - Unspecified psychosis not due to a substance or known physiological condition Plan The patient is a 78-year-old male with a past history of high blood pressure, dementia, hypothyroidism and GERD referred from the emergency room of [facility] for exacerbation of psychosis in the context of worsening dementia. He had been calling the police regarding masked intruders in his home and disorganized behavior. Plan 1. Gather collateral information. 2. Continue 15 minutes checks. 3. Continue with medical workout. 4. We will start a low dose of Zyprexa 2.5 p.o. q.6 PRNs psychosis since he responded fairly well on the emergency room. 5. Referral for occupational therapist for cognitive impairment. He scored 3.2 on the Robby test 6. Haldol 1 mg at 04:00 o'clock to prevent sundowning. 7. Start Namenda 5 mg p.o. b.i.d. to target dementia. On April 17 we increased up to 10 mg p.o. b.i.d. Reason for continued inpatient stay Substantial Risk for: inability to function, rapid decompensation and med/psych decompensation Time Spent With Patient Time: Total time managing care of this patient today __20__ minutes.
[2024-04-17] MEDS: HaloperidoL 1 MG TABLET PO (16:35)
[2024-04-17] MEDS: Latanoprost 0.005 % Ophth Sol 2.5 ML DROPS 1 DROP EYE-BOTH (20:19)
[2024-04-17] MEDS: Famotidine 20 MG TABLET 40 MG PO (20:19)
[2024-04-17] MEDS: Memantine HCl 10 MG TABLET PO (20:19)
[2024-04-17 20:58] VITALS: BP 111/71; PULSE 69; RESP 17; TEMP 36.2; O2SAT 97
[2024-04-18] MEDS: Levothyroxine Sodium 75 MCG TABLET PO (05:00)
[2024-04-18] MEDS: Omeprazole 20 MG CAPSULE.DR PO ×2 (05:30→15:51)
[2024-04-18 07:00] VITALS: BMI 33.5
[2024-04-18 08:00] VITALS: BP 150/84; PULSE 70; RESP 18; TEMP 36.2; O2SAT 96
[2024-04-18] MEDS: Tolterodine Tartrate LA 4 MG CAP.ER.24H PO (08:23)
[2024-04-18] MEDS: dilTIAZem HCL CD 240 MG CAP.ER.DEG PO (08:23)
[2024-04-18] MEDS: Memantine HCl 10 MG TABLET PO ×2 (08:24→20:42)
[2024-04-18] MEDS: Apixaban 5 MG TABLET PO ×2 (08:24→20:43)
[2024-04-18] MEDS: Metoprolol Succinate ER 100 MG TAB.ER.24H 200 MG PO (08:24)
[2024-04-18] MEDS: lisinopriL 2.5 MG TABLET PO (08:24)
[2024-04-18] MEDS: Pravastatin Sodium 20 MG TABLET PO (08:24)
[2024-04-18] MEDS: Furosemide 40 MG TABLET PO (08:24)
[2024-04-18] MEDS: Potassium Chloride ER 10 MEQ TABLET.ER PO ×2 (08:24→20:42)
[2024-04-18] MEDS: Donepezil HCl 10 MG TABLET PO (08:25)
--- NOTE | 2024-04-18 14:28 | P.PNPSI_ITS ---
Subjective Subjective Date of Service: 04/18/24 Reason For Visit: unspecified neurocognitive d/o Subjective Notes: Conditional Voluntary Healthcare Proxy: Yes Interim History: The nursing staff reported the patient had been compliant with treatment, pleasantly confused. Slept well. The geriatric social worker reported that the family is undecided about placement at this point. On interview the patient remains pleasantly confused redirected. Mental Status Exam Mental Status Exam Patient Appearance: Appropriate Patient Orientation: Person Level of Consciousness: Awake and Appropriate Patient Behavior: Guarded and Passive Mood Description: Withdrawn Affect Description: Constricted Patient Cognition Impaired: Yes Ability to Follow Directions: Good Speech Pattern: Clear Hallucinations: None Delusions: Ideas of Reference Thought Process: Illogical, Distracted and Slowed Thinking Thought Content: positive for [place] and positive for Poverty of Content Judgement: Poor Diagnostics Vital Signs (24Hr): Vital Signs - 24 hr 04/17/24 20:58 04/18/24 08:00 Temperature 97.2 F 97.1 F Pulse Rate 69 70 Respiratory Rate 17 18 Blood Pressure 111/71 150/84 H Pulse Oximetry 97 96 Oxygen Delivery Method Room Air Room Air BMI result Body Mass Index 33.5 Labs 04/08/24 20:38 Medications Medications Current Medications Acetaminophen (Acetaminophen 325 Mg Tablet) 650 mg PO Q6H PRN PRN Reason: Headache/Pain Mild Scale (1-3) Last Admin: 04/11/24 14:50 Dose: 650 mg Al Hydroxide/Mg Hydroxide (Magnesium Hydrox/Alum Hydrox 30 Ml Oral.Susp) 30 ml PO Q6H PRN PRN Reason: Heartburn/Nausea Apixaban (Apixaban 5 Mg Tablet) 5 mg PO BID [facility] Last Admin: 04/18/24 08:24 Dose: 5 mg Diltiazem HCl (Diltiazem Hcl Cd 240 Mg Cap.Er.Deg) 240 mg PO DAILY [facility]; Protocol Last Admin: 04/18/24 08:23 Dose: 240 mg Donepezil HCl (Donepezil Hcl 10 Mg Tablet) 10 mg PO DAILY [facility] Last Admin: 04/18/24 08:25 Dose: 10 mg Famotidine (Famotidine 20 Mg Tablet) 40 mg PO BEDTIME [facility] Last Admin: 04/17/24 20:19 Dose: 40 mg Furosemide (Furosemide 40 Mg Tablet) 40 mg PO DAILY [facility]; Protocol Last Admin: 04/18/24 08:24 Dose: 40 mg Haloperidol (Haloperidol 1 Mg Tablet) 1 mg PO DAILY@1630 [facility] Last Admin: 04/17/24 16:35 Dose: 1 mg Hydroxyzine HCl (Hydroxyzine Hcl 25 Mg Tablet) 25 mg PO Q6H PRN PRN Reason: Anxiety Last Admin: 04/15/24 20:33 Dose: 25 mg Latanoprost (Latanoprost 0.005 % Ophth Lupis 2.5 Ml Drops) 1 drop EYE-BOTH BEDTIME [facility] Last Admin: 04/17/24 20:19 Dose: 1 drop Levothyroxine Sodium (Levothyroxine Sodium 75 Mcg Tablet) 75 mcg PO DAILY@0600 [facility] Last Admin: 04/18/24 05:00 Dose: 75 mcg Lisinopril (Lisinopril 2.5 Mg Tablet) 2.5 mg PO DAILY [facility]; Protocol Last Admin: 04/18/24 08:24 Dose: 2.5 mg Magnesium Hydroxide (Milk Of Magnesia 30 Ml Oral.Susp) 30 ml PO DAILY PRN PRN Reason: Constipation Memantine (Memantine Hcl 10 Mg Tablet) 10 mg PO BID [facility] Last Admin: 04/18/24 08:24 Dose: 10 mg Metoprolol Succinate (Metoprolol Succinate Er 100 Mg Tab.Er.24h) 200 mg PO DAILY [facility]; Protocol Last Admin: 04/18/24 08:24 Dose: 200 mg Olanzapine (Olanzapine 2.5 Mg Tablet) 2.5 mg PO Q4H PRN PRN Reason: Psychosis Omeprazole (Omeprazole 20 Mg Capsule.Dr) 20 mg PO BID@0630,1630 [facility] Last Admin: 04/18/24 05:30 Dose: 20 mg Potassium Chloride (Potassium Chloride Er 10 Meq Tablet.Er) 10 meq PO BID [facility] Last Admin: 04/18/24 08:24 Dose: 10 meq Pravastatin Sodium (Pravastatin Sodium 20 Mg Tablet) 20 mg PO DAILY [facility] Last Admin: 04/18/24 08:24 Dose: 20 mg Tolterodine Tartrate (Tolterodine Tartrate La 4 Mg Cap.Er.24h) 4 mg PO DAILY [facility] Last Admin: 04/18/24 08:23 Dose: 4 mg Trazodone HCl (Trazodone Hcl 50 Mg Tablet) 50 mg PO BEDTIME MRX1 PRN PRN Reason: Insomnia Last Admin: 04/15/24 20:33 Dose: 50 mg Allergies Allergies Allergy/AdvReac Type Severity Reaction Status Date / Time No Known Allergies Allergy Verified 04/08/24 19:16 Assessment & Plan Assessment & Plan (1) Dementia: Status: Acute Code(s): F03.90 - Unspecified dementia, unspecified severity, without behavioral disturbance, psychotic disturbance, mood disturbance, and anxiety (2) Psychosis: Status: Acute Code(s): F29 - Unspecified psychosis not due to a substance or known physiological condition Plan The patient is a 78-year-old male with a past history of high blood pressure, dementia, hypothyroidism and GERD referred from the emergency room of [facility] for exacerbation of psychosis in the context of worsening dementia. He had been calling the police regarding masked intruders in his home and disorganized behavior. Plan 1. Gather collateral information. 2. Continue 15 minutes checks. 3. Continue with medical workout. 4. We will start a low dose of Zyprexa 2.5 p.o. q.6 PRNs psychosis since he responded fairly well on the emergency room. 5. Referral for occupational therapist for cognitive impairment. He scored 3.2 on the Robby test 6. Haldol 1 mg at 04:00 o'clock to prevent sundowning. 7. Start Namenda 5 mg p.o. b.i.d. to target dementia. On April 17 we increased up to 10 mg p.o. b.i.d. Reason for continued inpatient stay Substantial Risk for: inability to function, rapid decompensation and med/psych decompensation Time Spent With Patient Time: Total time managing care of this patient today __20__ minutes.
[2024-04-18] MEDS: HaloperidoL 1 MG TABLET PO (15:51)
[2024-04-18 20:00] VITALS: BP 144/75; PULSE 57; RESP 16; TEMP 36.2; O2SAT 92
[2024-04-18] MEDS: Famotidine 20 MG TABLET 40 MG PO (20:42)
[2024-04-18] MEDS: traZODone HCL 50 MG TABLET PO (20:43)
[2024-04-18] MEDS: Latanoprost 0.005 % Ophth Sol 2.5 ML DROPS 1 DROP EYE-BOTH (20:58)
[2024-04-19] MEDS: Omeprazole 20 MG CAPSULE.DR PO ×2 (06:22→16:06)
[2024-04-19] MEDS: Levothyroxine Sodium 75 MCG TABLET PO (06:22)
[2024-04-19 08:00] VITALS: BP 134/68; PULSE 60; RESP 18; TEMP 36; O2SAT 97
[2024-04-19] MEDS: Donepezil HCl 10 MG TABLET PO (08:19)
[2024-04-19] MEDS: lisinopriL 2.5 MG TABLET PO (08:19)
[2024-04-19] MEDS: Memantine HCl 10 MG TABLET PO ×2 (08:20→20:41)
[2024-04-19] MEDS: Metoprolol Succinate ER 100 MG TAB.ER.24H 200 MG PO (08:20)
[2024-04-19] MEDS: Tolterodine Tartrate LA 4 MG CAP.ER.24H PO (08:20)
[2024-04-19] MEDS: Apixaban 5 MG TABLET PO ×2 (08:20→20:41)
[2024-04-19] MEDS: Potassium Chloride ER 10 MEQ TABLET.ER PO ×2 (08:20→20:40)
[2024-04-19] MEDS: Furosemide 40 MG TABLET PO (08:20)
[2024-04-19] MEDS: dilTIAZem HCL CD 240 MG CAP.ER.DEG PO (08:20)
[2024-04-19] MEDS: Pravastatin Sodium 20 MG TABLET PO (08:20)
--- NOTE | 2024-04-19 15:32 | HO.PSYCHPN ---
Subjective Subjective Date of Service: 04/19/24 Reason For Visit: unspecified neurocognitive d/o Subjective Notes: Conditional Voluntary Interim History: The nursing staff reported the patient had been pleasantly confused. The occupational therapist reported he has attended to groups he is confused but easily redirectable. The social worker assistant reported her daughter is not 100% sure to send him back to the assisted living facility. On interview the patient denies new symptoms pleasantly confused easily redirectable. Mental Status Exam Mental Status Exam Patient Appearance: Well Grooomed Patient Orientation: Person and Situation Level of Consciousness: Awake and Appropriate Patient Behavior: Guarded and Passive Mood Description: Withdrawn Affect Description: Constricted Patient Cognition Impaired: Yes Ability to Follow Directions: Good Speech Pattern: Clear Hallucinations: None Delusions: Paranoid Ideation Thought Process: Distracted and Slowed Thinking Thought Content: positive for [place] and positive for Poverty of Content Judgement: Fair Diagnostics Vital Signs (24Hr): Vital Signs - 24 hr 04/18/24 20:00 04/19/24 08:00 Temperature 97.2 F 96.8 F Pulse Rate 57 60 Respiratory Rate 16 18 Blood Pressure 144/75 H 134/68 Pulse Oximetry 92 97 Oxygen Delivery Method Room Air Room Air BMI result Body Mass Index 33.5 Labs 04/08/24 20:38 Medications Medications Current Medications Acetaminophen (Acetaminophen 325 Mg Tablet) 650 mg PO Q6H PRN PRN Reason: Headache/Pain Mild Scale (1-3) Last Admin: 04/11/24 14:50 Dose: 650 mg Al Hydroxide/Mg Hydroxide (Magnesium Hydrox/Alum Hydrox 30 Ml Oral.Susp) 30 ml PO Q6H PRN PRN Reason: Heartburn/Nausea Apixaban (Apixaban 5 Mg Tablet) 5 mg PO BID [facility] Last Admin: 04/19/24 08:20 Dose: 5 mg Diltiazem HCl (Diltiazem Hcl Cd 240 Mg Cap.Er.Deg) 240 mg PO DAILY [facility]; Protocol Last Admin: 04/19/24 08:20 Dose: 240 mg Donepezil HCl (Donepezil Hcl 10 Mg Tablet) 10 mg PO DAILY [facility] Last Admin: 04/19/24 08:19 Dose: 10 mg Famotidine (Famotidine 20 Mg Tablet) 40 mg PO BEDTIME [facility] Last Admin: 04/18/24 20:42 Dose: 40 mg Furosemide (Furosemide 40 Mg Tablet) 40 mg PO DAILY [facility]; Protocol Last Admin: 04/19/24 08:20 Dose: 40 mg Haloperidol (Haloperidol 1 Mg Tablet) 1 mg PO DAILY@1630 [facility] Last Admin: 04/18/24 15:51 Dose: 1 mg Hydroxyzine HCl (Hydroxyzine Hcl 25 Mg Tablet) 25 mg PO Q6H PRN PRN Reason: Anxiety Last Admin: 04/15/24 20:33 Dose: 25 mg Latanoprost (Latanoprost 0.005 % Ophth Lupis 2.5 Ml Drops) 1 drop EYE-BOTH BEDTIME [facility] Last Admin: 04/18/24 20:58 Dose: 1 drop Levothyroxine Sodium (Levothyroxine Sodium 75 Mcg Tablet) 75 mcg PO DAILY@0600 [facility] Last Admin: 04/19/24 06:22 Dose: 75 mcg Lisinopril (Lisinopril 2.5 Mg Tablet) 2.5 mg PO DAILY [facility]; Protocol Last Admin: 04/19/24 08:19 Dose: 2.5 mg Magnesium Hydroxide (Milk Of Magnesia 30 Ml Oral.Susp) 30 ml PO DAILY PRN PRN Reason: Constipation Memantine (Memantine Hcl 10 Mg Tablet) 10 mg PO BID [facility] Last Admin: 04/19/24 08:20 Dose: 10 mg Metoprolol Succinate (Metoprolol Succinate Er 100 Mg Tab.Er.24h) 200 mg PO DAILY [facility]; Protocol Last Admin: 04/19/24 08:20 Dose: 200 mg Olanzapine (Olanzapine 2.5 Mg Tablet) 2.5 mg PO Q4H PRN PRN Reason: Psychosis Omeprazole (Omeprazole 20 Mg Capsule.Dr) 20 mg PO BID@0630,1630 [facility] Last Admin: 04/19/24 06:22 Dose: 20 mg Potassium Chloride (Potassium Chloride Er 10 Meq Tablet.Er) 10 meq PO BID [facility] Last Admin: 04/19/24 08:20 Dose: 10 meq Pravastatin Sodium (Pravastatin Sodium 20 Mg Tablet) 20 mg PO DAILY [facility] Last Admin: 04/19/24 08:20 Dose: 20 mg Tolterodine Tartrate (Tolterodine Tartrate La 4 Mg Cap.Er.24h) 4 mg PO DAILY [facility] Last Admin: 04/19/24 08:20 Dose: 4 mg Trazodone HCl (Trazodone Hcl 50 Mg Tablet) 50 mg PO BEDTIME MRX1 PRN PRN Reason: Insomnia Last Admin: 04/18/24 20:43 Dose: 50 mg Allergies Allergies Allergy/AdvReac Type Severity Reaction Status Date / Time No Known Allergies Allergy Verified 04/08/24 19:16 Assessment & Plan Assessment & Plan (1) Dementia: Status: Acute Code(s): F03.90 - Unspecified dementia, unspecified severity, without behavioral disturbance, psychotic disturbance, mood disturbance, and anxiety (2) Psychosis: Status: Acute Code(s): F29 - Unspecified psychosis not due to a substance or known physiological condition Plan The patient is a 78-year-old male with a past history of high blood pressure, dementia, hypothyroidism and GERD referred from the emergency room of [facility] for exacerbation of psychosis in the context of worsening dementia. He had been calling the police regarding masked intruders in his home and disorganized behavior. Plan 1. Gather collateral information. 2. Continue 15 minutes checks. 3. Continue with medical workout. 4. We will start a low dose of Zyprexa 2.5 p.o. q.6 PRNs psychosis since he responded fairly well on the emergency room. 5. Referral for occupational therapist for cognitive impairment. He scored 3.2 on the Robby test 6. Haldol 1 mg at 04:00 o'clock to prevent sundowning. 7. Start Namenda 5 mg p.o. b.i.d. to target dementia. On April 17 we increased up to 10 mg p.o. b.i.d. Reason for continued inpatient stay Substantial Risk for: inability to function, rapid decompensation and med/psych decompensation Time Spent With Patient Time: Total time managing care of this patient today __20__ minutes.
[2024-04-19] MEDS: HaloperidoL 1 MG TABLET PO (16:06)
[2024-04-19 20:00] VITALS: BP 112/62; PULSE 60; RESP 16; TEMP 36.9; O2SAT 96
[2024-04-19] MEDS: Famotidine 20 MG TABLET 40 MG PO (20:40)
[2024-04-19] MEDS: Latanoprost 0.005 % Ophth Sol 2.5 ML DROPS 1 DROP EYE-BOTH (20:40)
[2024-04-19] MEDS: traZODone HCL 50 MG TABLET PO (20:40)
[2024-04-20] MEDS: Omeprazole 20 MG CAPSULE.DR PO ×2 (06:38→15:35)
[2024-04-20] MEDS: Levothyroxine Sodium 75 MCG TABLET PO (06:38)
[2024-04-20 07:58] VITALS: BP 119/57; PULSE 58; RESP 18; TEMP 36.4; O2SAT 98
[2024-04-20] MEDS: Memantine HCl 10 MG TABLET PO ×2 (08:15→20:40)
[2024-04-20] MEDS: Apixaban 5 MG TABLET PO ×2 (08:15→20:41)
[2024-04-20] MEDS: Pravastatin Sodium 20 MG TABLET PO (08:15)
[2024-04-20] MEDS: Donepezil HCl 10 MG TABLET PO (08:15)
[2024-04-20] MEDS: Tolterodine Tartrate LA 4 MG CAP.ER.24H PO (08:15)
[2024-04-20] MEDS: Potassium Chloride ER 10 MEQ TABLET.ER PO ×2 (08:15→20:40)
[2024-04-20 09:04] VITALS: BP 111/59; PULSE 57
--- NOTE | 2024-04-20 13:38 | P.PNPSI_ITS ---
Subjective Subjective Date of Service: 04/20/24 Reason For Visit: unspecified neurocognitive d/o Subjective Notes: Conditional Voluntary Interim History: Pt slept through the night. He reports he is awaiting for his daughter, thinks she does not care as much for him as she should. He is social with peers. No SI/HI. No behavioral concerns. Medication Compliance: Yes Review of Systems Review of Systems Yes all other systems are reviewed and are negative and Unobtainable due to mental status Mental Status Exam Mental Status Exam Patient Appearance: Well Grooomed Patient Orientation: Person and Situation Level of Consciousness: Awake and Appropriate Patient Behavior: Guarded and Passive Mood Description: Withdrawn Affect Description: Constricted Patient Cognition Impaired: Yes Ability to Follow Directions: Good Speech Pattern: Clear Diagnostics Vital Signs (24Hr): Vital Signs - 24 hr 04/19/24 20:00 04/20/24 07:58 04/20/24 09:04 Temperature 98.4 F 97.5 F Pulse Rate 60 58 57 Respiratory Rate 16 18 Blood Pressure 112/62 119/57 L 111/59 L Pulse Oximetry 96 98 Oxygen Delivery Method Room Air Room Air BMI result Body Mass Index 33.5 Labs 04/08/24 20:38 Medications Medications Current Medications Acetaminophen (Acetaminophen 325 Mg Tablet) 650 mg PO Q6H PRN PRN Reason: Headache/Pain Mild Scale (1-3) Last Admin: 04/11/24 14:50 Dose: 650 mg Al Hydroxide/Mg Hydroxide (Magnesium Hydrox/Alum Hydrox 30 Ml Oral.Susp) 30 ml PO Q6H PRN PRN Reason: Heartburn/Nausea Apixaban (Apixaban 5 Mg Tablet) 5 mg PO BID [facility] Last Admin: 04/20/24 08:15 Dose: 5 mg Diltiazem HCl (Diltiazem Hcl Cd 240 Mg Cap.Er.Deg) 240 mg PO DAILY [facility]; Protocol Last Admin: 04/20/24 10:10 Dose: Not Given Donepezil HCl (Donepezil Hcl 10 Mg Tablet) 10 mg PO DAILY [facility] Last Admin: 04/20/24 08:15 Dose: 10 mg Famotidine (Famotidine 20 Mg Tablet) 40 mg PO BEDTIME [facility] Last Admin: 04/19/24 20:40 Dose: 40 mg Furosemide (Furosemide 40 Mg Tablet) 40 mg PO DAILY [facility]; Protocol Last Admin: 04/20/24 10:11 Dose: Not Given Haloperidol (Haloperidol 1 Mg Tablet) 1 mg PO DAILY@1630 [facility] Last Admin: 04/19/24 16:06 Dose: 1 mg Hydroxyzine HCl (Hydroxyzine Hcl 25 Mg Tablet) 25 mg PO Q6H PRN PRN Reason: Anxiety Last Admin: 04/15/24 20:33 Dose: 25 mg Latanoprost (Latanoprost 0.005 % Ophth Lupis 2.5 Ml Drops) 1 drop EYE-BOTH BEDTIME [facility] Last Admin: 04/19/24 20:40 Dose: 1 drop Levothyroxine Sodium (Levothyroxine Sodium 75 Mcg Tablet) 75 mcg PO DAILY@0600 [facility] Last Admin: 04/20/24 06:38 Dose: 75 mcg Lisinopril (Lisinopril 2.5 Mg Tablet) 2.5 mg PO DAILY [facility]; Protocol Last Admin: 04/20/24 10:11 Dose: Not Given Magnesium Hydroxide (Milk Of Magnesia 30 Ml Oral.Susp) 30 ml PO DAILY PRN PRN Reason: Constipation Memantine (Memantine Hcl 10 Mg Tablet) 10 mg PO BID [facility] Last Admin: 04/20/24 08:15 Dose: 10 mg Metoprolol Succinate (Metoprolol Succinate Er 100 Mg Tab.Er.24h) 200 mg PO DAILY [facility]; Protocol Last Admin: 04/20/24 10:11 Dose: Not Given Olanzapine (Olanzapine 2.5 Mg Tablet) 2.5 mg PO Q4H PRN PRN Reason: Psychosis Omeprazole (Omeprazole 20 Mg Capsule.Dr) 20 mg PO BID@0630,1630 [facility] Last Admin: 04/20/24 06:38 Dose: 20 mg Potassium Chloride (Potassium Chloride Er 10 Meq Tablet.Er) 10 meq PO BID [facility] Last Admin: 04/20/24 08:15 Dose: 10 meq Pravastatin Sodium (Pravastatin Sodium 20 Mg Tablet) 20 mg PO DAILY [facility] Last Admin: 04/20/24 08:15 Dose: 20 mg Tolterodine Tartrate (Tolterodine Tartrate La 4 Mg Cap.Er.24h) 4 mg PO DAILY [facility] Last Admin: 04/20/24 08:15 Dose: 4 mg Trazodone HCl (Trazodone Hcl 50 Mg Tablet) 50 mg PO BEDTIME MRX1 PRN PRN Reason: Insomnia Last Admin: 04/19/24 20:40 Dose: 50 mg Allergies Allergies Allergy/AdvReac Type Severity Reaction Status Date / Time No Known Allergies Allergy Verified 04/08/24 19:16 Assessment & Plan Assessment & Plan (1) Dementia: Status: Acute Code(s): F03.90 - Unspecified dementia, unspecified severity, without behavioral disturbance, psychotic disturbance, mood disturbance, and anxiety (2) Psychosis: Status: Acute Code(s): F29 - Unspecified psychosis not due to a substance or known physiological condition Plan The patient is a 78-year-old male with a past history of high blood pressure, dementia, hypothyroidism and GERD referred from the emergency room of [facility] for exacerbation of psychosis in the context of worsening dementia. He had been calling the police regarding masked intruders in his home and disorganized behavior. Plan 04/20 continue tx. Reason for continued inpatient stay Substantial Risk for: inability to function Time Spent With Patient Time: Total time managing care of this patient today ____ minutes.
--- NOTE | 2024-04-20 14:16 | PC.NURSE ---
Morning bp 119/57 and pulse 58. Gary denied dizziness/lightheadedness at that time. BP and pulse rechecked approximately an hour later and 115/59 and 57. Gary denied dizziness/lightheadedness. Morning metoprolol, cardizem, lisinopril, and lasix held per order parameters. Kirsten Valencia NP notified.
[2024-04-20] MEDS: HaloperidoL 1 MG TABLET PO (15:35)
[2024-04-20 20:00] VITALS: BP 139/63; PULSE 74; RESP 16; TEMP 36.8; O2SAT 98
[2024-04-20] MEDS: Latanoprost 0.005 % Ophth Sol 2.5 ML DROPS 1 DROP EYE-BOTH (20:39)
[2024-04-20] MEDS: Famotidine 20 MG TABLET 40 MG PO (20:40)
[2024-04-20] MEDS: traZODone HCL 50 MG TABLET PO (20:40)
[2024-04-21] MEDS: Omeprazole 20 MG CAPSULE.DR PO ×2 (05:50→15:40)
[2024-04-21] MEDS: Levothyroxine Sodium 75 MCG TABLET PO (05:50)
[2024-04-21 08:00] VITALS: BP 132/73; PULSE 70; RESP 18; TEMP 36.3; O2SAT 97
[2024-04-21] MEDS: Tolterodine Tartrate LA 4 MG CAP.ER.24H PO (08:16)
[2024-04-21] MEDS: Apixaban 5 MG TABLET PO ×2 (08:16→20:48)
[2024-04-21] MEDS: dilTIAZem HCL CD 240 MG CAP.ER.DEG PO (08:16)
[2024-04-21] MEDS: Pravastatin Sodium 20 MG TABLET PO (08:16)
[2024-04-21] MEDS: Furosemide 40 MG TABLET PO (08:16)
[2024-04-21] MEDS: Donepezil HCl 10 MG TABLET PO (08:16)
[2024-04-21] MEDS: Memantine HCl 10 MG TABLET PO ×2 (08:16→20:48)
[2024-04-21] MEDS: lisinopriL 2.5 MG TABLET PO (08:16)
[2024-04-21] MEDS: Metoprolol Succinate ER 100 MG TAB.ER.24H 200 MG PO (08:17)
[2024-04-21] MEDS: Potassium Chloride ER 10 MEQ TABLET.ER PO ×2 (08:17→20:48)
--- NOTE | 2024-04-21 12:10 | HO.PSYCHPN ---
Subjective Subjective Date of Service: 04/21/24 Reason For Visit: unspecified neurocognitive d/o Interim History: Pt slept through the night. He reports he is awaiting for his daughter, thinks she does not care as much for him as she should. He is social with peers. No SI/HI. No behavioral concerns. Review of Systems Review of Systems Yes all other systems are reviewed and are negative and Unobtainable due to mental status Mental Status Exam Mental Status Exam Patient Appearance: Well Grooomed Patient Orientation: Person and Situation Level of Consciousness: Awake and Appropriate Patient Behavior: Guarded and Passive Mood Description: Withdrawn Affect Description: Constricted Patient Cognition Impaired: Yes Ability to Follow Directions: Good Speech Pattern: Clear Diagnostics Vital Signs (24Hr): Vital Signs - 24 hr 04/20/24 20:00 04/21/24 08:00 Temperature 98.3 F 97.4 F Pulse Rate 74 70 Respiratory Rate 16 18 Blood Pressure 139/63 132/73 Pulse Oximetry 98 97 Oxygen Delivery Method Room Air Room Air BMI result Body Mass Index 33.5 Labs 04/08/24 20:38 Medications Medications Current Medications Acetaminophen (Acetaminophen 325 Mg Tablet) 650 mg PO Q6H PRN PRN Reason: Headache/Pain Mild Scale (1-3) Last Admin: 04/11/24 14:50 Dose: 650 mg Al Hydroxide/Mg Hydroxide (Magnesium Hydrox/Alum Hydrox 30 Ml Oral.Susp) 30 ml PO Q6H PRN PRN Reason: Heartburn/Nausea Apixaban (Apixaban 5 Mg Tablet) 5 mg PO BID [facility] Last Admin: 04/21/24 08:16 Dose: 5 mg Diltiazem HCl (Diltiazem Hcl Cd 240 Mg Cap.Er.Deg) 240 mg PO DAILY [facility]; Protocol Last Admin: 04/21/24 08:16 Dose: 240 mg Donepezil HCl (Donepezil Hcl 10 Mg Tablet) 10 mg PO DAILY [facility] Last Admin: 04/21/24 08:16 Dose: 10 mg Famotidine (Famotidine 20 Mg Tablet) 40 mg PO BEDTIME [facility] Last Admin: 04/20/24 20:40 Dose: 40 mg Furosemide (Furosemide 40 Mg Tablet) 40 mg PO DAILY [facility]; Protocol Last Admin: 04/21/24 08:16 Dose: 40 mg Haloperidol (Haloperidol 1 Mg Tablet) 1 mg PO DAILY@1630 [facility] Last Admin: 04/20/24 15:35 Dose: 1 mg Hydroxyzine HCl (Hydroxyzine Hcl 25 Mg Tablet) 25 mg PO Q6H PRN PRN Reason: Anxiety Last Admin: 04/15/24 20:33 Dose: 25 mg Latanoprost (Latanoprost 0.005 % Ophth Lupis 2.5 Ml Drops) 1 drop EYE-BOTH BEDTIME [facility] Last Admin: 04/20/24 20:39 Dose: 1 drop Levothyroxine Sodium (Levothyroxine Sodium 75 Mcg Tablet) 75 mcg PO DAILY@0600 [facility] Last Admin: 04/21/24 05:50 Dose: 75 mcg Lisinopril (Lisinopril 2.5 Mg Tablet) 2.5 mg PO DAILY [facility]; Protocol Last Admin: 04/21/24 08:16 Dose: 2.5 mg Magnesium Hydroxide (Milk Of Magnesia 30 Ml Oral.Susp) 30 ml PO DAILY PRN PRN Reason: Constipation Memantine (Memantine Hcl 10 Mg Tablet) 10 mg PO BID [facility] Last Admin: 04/21/24 08:16 Dose: 10 mg Metoprolol Succinate (Metoprolol Succinate Er 100 Mg Tab.Er.24h) 200 mg PO DAILY [facility]; Protocol Last Admin: 04/21/24 08:17 Dose: 200 mg Olanzapine (Olanzapine 2.5 Mg Tablet) 2.5 mg PO Q4H PRN PRN Reason: Psychosis Omeprazole (Omeprazole 20 Mg Capsule.Dr) 20 mg PO BID@0630,1630 [facility] Last Admin: 04/21/24 05:50 Dose: 20 mg Potassium Chloride (Potassium Chloride Er 10 Meq Tablet.Er) 10 meq PO BID [facility] Last Admin: 04/21/24 08:17 Dose: 10 meq Pravastatin Sodium (Pravastatin Sodium 20 Mg Tablet) 20 mg PO DAILY [facility] Last Admin: 04/21/24 08:16 Dose: 20 mg Tolterodine Tartrate (Tolterodine Tartrate La 4 Mg Cap.Er.24h) 4 mg PO DAILY [facility] Last Admin: 04/21/24 08:16 Dose: 4 mg Trazodone HCl (Trazodone Hcl 50 Mg Tablet) 50 mg PO BEDTIME MRX1 PRN PRN Reason: Insomnia Last Admin: 04/20/24 20:40 Dose: 50 mg Allergies Allergies Allergy/AdvReac Type Severity Reaction Status Date / Time No Known Allergies Allergy Verified 04/08/24 19:16 Assessment & Plan Assessment & Plan (1) Dementia: Status: Acute Code(s): F03.90 - Unspecified dementia, unspecified severity, without behavioral disturbance, psychotic disturbance, mood disturbance, and anxiety (2) Psychosis: Status: Acute Code(s): F29 - Unspecified psychosis not due to a substance or known physiological condition Plan The patient is a 78-year-old male with a past history of high blood pressure, dementia, hypothyroidism and GERD referred from the emergency room of [facility] for exacerbation of psychosis in the context of worsening dementia. He had been calling the police regarding masked intruders in his home and disorganized behavior. Plan 04/20 continue tx. 04/21 continue tx. Reason for continued inpatient stay Substantial Risk for: inability to function Time Spent With Patient Time: Total time managing care of this patient today ____ minutes.
[2024-04-21] MEDS: HaloperidoL 1 MG TABLET PO (15:40)
[2024-04-21 20:00] VITALS: BP 154/75; PULSE 58; RESP 18; TEMP 36.6; O2SAT 95
[2024-04-21] MEDS: traZODone HCL 50 MG TABLET PO (20:48)
[2024-04-21] MEDS: Famotidine 20 MG TABLET 40 MG PO (20:48)
[2024-04-21] MEDS: Latanoprost 0.005 % Ophth Sol 2.5 ML DROPS 1 DROP EYE-BOTH (20:52)
[2024-04-22] MEDS: Levothyroxine Sodium 75 MCG TABLET PO (05:39)
[2024-04-22] MEDS: Omeprazole 20 MG CAPSULE.DR PO ×2 (05:39→15:42)
[2024-04-22 07:57] VITALS: BP 107/57; PULSE 60; RESP 16; TEMP 36; O2SAT 96
[2024-04-22] MEDS: lisinopriL 2.5 MG TABLET PO (08:33)
[2024-04-22] MEDS: Donepezil HCl 10 MG TABLET PO (08:33)
[2024-04-22] MEDS: Furosemide 40 MG TABLET PO (08:33)
[2024-04-22] MEDS: Pravastatin Sodium 20 MG TABLET PO (08:33)
[2024-04-22] MEDS: Apixaban 5 MG TABLET PO ×2 (08:33→19:39)
[2024-04-22] MEDS: Memantine HCl 10 MG TABLET PO ×2 (08:33→19:39)
[2024-04-22] MEDS: Metoprolol Succinate ER 100 MG TAB.ER.24H 200 MG PO (08:34)
[2024-04-22] MEDS: dilTIAZem HCL CD 240 MG CAP.ER.DEG PO (08:34)
[2024-04-22] MEDS: Tolterodine Tartrate LA 4 MG CAP.ER.24H PO (08:34)
[2024-04-22] MEDS: Potassium Chloride ER 10 MEQ TABLET.ER PO ×2 (08:34→19:39)
--- NOTE | 2024-04-22 11:53 | P.PNPSI_ITS ---
Subjective Subjective Date of Service: 04/22/24 Reason For Visit: unspecified neurocognitive d/o Subjective Notes: Conditional Voluntary Interim History: The nursing staff reported the patient had been cheerful confused but easily redirectable. The occupational therapist reports that he goes groups and he had been even insightful but confused. On interview the patient denies new symptoms, tolerating well the change of medications. Mental Status Exam Mental Status Exam Patient Appearance: Well Grooomed Patient Orientation: Person and Situation Level of Consciousness: Awake and Appropriate Patient Behavior: Guarded and Passive Mood Description: Calm Affect Description: Constricted Patient Cognition Impaired: Yes Ability to Follow Directions: Good Speech Pattern: Clear Hallucinations: None Delusions: Ideas of Reference Thought Process: Distracted Thought Content: positive for [place] and positive for Poverty of Content Judgement: Fair Diagnostics Vital Signs (24Hr): Vital Signs - 24 hr 04/21/24 20:00 04/22/24 07:57 Temperature 97.9 F 96.8 F Pulse Rate 58 60 Respiratory Rate 18 16 Blood Pressure 154/75 H 107/57 L Pulse Oximetry 95 96 Oxygen Delivery Method Room Air Room Air BMI result Body Mass Index 33.5 Labs 04/08/24 20:38 Medications Medications Current Medications Acetaminophen (Acetaminophen 325 Mg Tablet) 650 mg PO Q6H PRN PRN Reason: Headache/Pain Mild Scale (1-3) Last Admin: 04/11/24 14:50 Dose: 650 mg Al Hydroxide/Mg Hydroxide (Magnesium Hydrox/Alum Hydrox 30 Ml Oral.Susp) 30 ml PO Q6H PRN PRN Reason: Heartburn/Nausea Apixaban (Apixaban 5 Mg Tablet) 5 mg PO BID [facility] Last Admin: 04/22/24 08:33 Dose: 5 mg Diltiazem HCl (Diltiazem Hcl Cd 240 Mg Cap.Er.Deg) 240 mg PO DAILY [facility]; Protocol Last Admin: 04/22/24 08:34 Dose: 240 mg Donepezil HCl (Donepezil Hcl 10 Mg Tablet) 10 mg PO DAILY [facility] Last Admin: 04/22/24 08:33 Dose: 10 mg Famotidine (Famotidine 20 Mg Tablet) 40 mg PO BEDTIME [facility] Last Admin: 04/21/24 20:48 Dose: 40 mg Furosemide (Furosemide 40 Mg Tablet) 40 mg PO DAILY [facility]; Protocol Last Admin: 04/22/24 08:33 Dose: 40 mg Haloperidol (Haloperidol 1 Mg Tablet) 1 mg PO DAILY@1630 [facility] Last Admin: 04/21/24 15:40 Dose: 1 mg Hydroxyzine HCl (Hydroxyzine Hcl 25 Mg Tablet) 25 mg PO Q6H PRN PRN Reason: Anxiety Last Admin: 04/15/24 20:33 Dose: 25 mg Latanoprost (Latanoprost 0.005 % Ophth Lupis 2.5 Ml Drops) 1 drop EYE-BOTH BEDTIME [facility] Last Admin: 04/21/24 20:52 Dose: 1 drop Levothyroxine Sodium (Levothyroxine Sodium 75 Mcg Tablet) 75 mcg PO DAILY@0600 [facility] Last Admin: 04/22/24 05:39 Dose: 75 mcg Lisinopril (Lisinopril 2.5 Mg Tablet) 2.5 mg PO DAILY [facility]; Protocol Last Admin: 04/22/24 08:33 Dose: 2.5 mg Magnesium Hydroxide (Milk Of Magnesia 30 Ml Oral.Susp) 30 ml PO DAILY PRN PRN Reason: Constipation Memantine (Memantine Hcl 10 Mg Tablet) 10 mg PO BID [facility] Last Admin: 04/22/24 08:33 Dose: 10 mg Metoprolol Succinate (Metoprolol Succinate Er 100 Mg Tab.Er.24h) 200 mg PO DAILY [facility]; Protocol Last Admin: 04/22/24 08:34 Dose: 200 mg Olanzapine (Olanzapine 2.5 Mg Tablet) 2.5 mg PO Q4H PRN PRN Reason: Psychosis Omeprazole (Omeprazole 20 Mg Capsule.Dr) 20 mg PO BID@0630,1630 [facility] Last Admin: 04/22/24 05:39 Dose: 20 mg Potassium Chloride (Potassium Chloride Er 10 Meq Tablet.Er) 10 meq PO BID [facility] Last Admin: 04/22/24 08:34 Dose: 10 meq Pravastatin Sodium (Pravastatin Sodium 20 Mg Tablet) 20 mg PO DAILY [facility] Last Admin: 04/22/24 08:33 Dose: 20 mg Tolterodine Tartrate (Tolterodine Tartrate La 4 Mg Cap.Er.24h) 4 mg PO DAILY [facility] Last Admin: 04/22/24 08:34 Dose: 4 mg Trazodone HCl (Trazodone Hcl 50 Mg Tablet) 50 mg PO BEDTIME MRX1 PRN PRN Reason: Insomnia Last Admin: 04/21/24 20:48 Dose: 50 mg Allergies Allergies Allergy/AdvReac Type Severity Reaction Status Date / Time No Known Allergies Allergy Verified 04/08/24 19:16 Assessment & Plan Assessment & Plan (1) Dementia: Status: Acute Code(s): F03.90 - Unspecified dementia, unspecified severity, without behavioral disturbance, psychotic disturbance, mood disturbance, and anxiety (2) Psychosis: Status: Acute Code(s): F29 - Unspecified psychosis not due to a substance or known physiological condition Plan The patient is a 78-year-old male with a past history of high blood pressure, dementia, hypothyroidism and GERD referred from the emergency room of [facility] for exacerbation of psychosis in the context of worsening dementia. He had been calling the police regarding masked intruders in his home and disorganized behavior. Plan 1. We have increased Aricept and Namenda to target dementia. 2. Since the patient had been ing we have decided to use Haldol 1 mg p.o. in the afternoon with good tolerability. 3. Continue 15 minute checks. Reason for continued inpatient stay Substantial Risk for: inability to function, rapid decompensation and med/psych decompensation Time Spent With Patient Time: Total time managing care of this patient today __20__ minutes.
[2024-04-22] MEDS: HaloperidoL 1 MG TABLET PO (15:42)
[2024-04-22 19:37] VITALS: BP 123/62; PULSE 59; RESP 16; TEMP 36.5; O2SAT 96
[2024-04-22] MEDS: Famotidine 20 MG TABLET 40 MG PO (19:39)
[2024-04-22] MEDS: Latanoprost 0.005 % Ophth Sol 2.5 ML DROPS 1 DROP EYE-BOTH (19:40)
[2024-04-23] MEDS: Levothyroxine Sodium 75 MCG TABLET PO (05:09)
[2024-04-23] MEDS: Omeprazole 20 MG CAPSULE.DR PO ×2 (05:38→16:34)
[2024-04-23 07:55] VITALS: BP 120/68; PULSE 74; RESP 18; TEMP 36.6; O2SAT 99
[2024-04-23] MEDS: Potassium Chloride ER 10 MEQ TABLET.ER PO ×2 (08:11→20:30)
[2024-04-23] MEDS: Apixaban 5 MG TABLET PO ×2 (08:11→20:30)
[2024-04-23] MEDS: Donepezil HCl 10 MG TABLET PO (08:11)
[2024-04-23] MEDS: Memantine HCl 10 MG TABLET PO ×2 (08:11→20:30)
[2024-04-23] MEDS: Metoprolol Succinate ER 100 MG TAB.ER.24H 200 MG PO (08:11)
[2024-04-23] MEDS: Tolterodine Tartrate LA 4 MG CAP.ER.24H PO (08:11)
[2024-04-23] MEDS: Furosemide 40 MG TABLET PO (08:11)
[2024-04-23] MEDS: lisinopriL 2.5 MG TABLET PO (08:11)
[2024-04-23] MEDS: dilTIAZem HCL CD 240 MG CAP.ER.DEG PO (08:11)
[2024-04-23] MEDS: Pravastatin Sodium 20 MG TABLET PO (08:12)
--- NOTE | 2024-04-23 14:19 | P.PNPSI_ITS ---
Subjective Subjective Date of Service: 04/23/24 Reason For Visit: unspecified neurocognitive d/o Subjective Notes: Conditional Voluntary Interim History: The nursing staff reported had been with a brighter affect slept 7 hours fully compliant with treatment. The psychiatric social worker reported that [facility] can take him. On interview the patient is pleasantly confused easily redirectable. Mental Status Exam Mental Status Exam Patient Appearance: Appropriate Patient Orientation: Person and Situation Level of Consciousness: Awake Patient Behavior: Guarded and Passive Mood Description: Withdrawn Affect Description: Constricted Patient Cognition Impaired: Yes Ability to Follow Directions: Good Speech Pattern: Clear Hallucinations: None Delusions: Ideas of Reference Thought Process: Distracted and Slowed Thinking Thought Content: positive for [place] and positive for Poverty of Content Judgement: Fair Diagnostics Vital Signs (24Hr): Vital Signs - 24 hr 04/22/24 19:37 04/23/24 07:55 Temperature 97.7 F 97.9 F Pulse Rate 59 74 Respiratory Rate 16 18 Blood Pressure 123/62 120/68 Pulse Oximetry 96 99 Oxygen Delivery Method Room Air Room Air BMI result Body Mass Index 33.5 Labs 04/08/24 20:38 Medications Medications Current Medications Acetaminophen (Acetaminophen 325 Mg Tablet) 650 mg PO Q6H PRN PRN Reason: Headache/Pain Mild Scale (1-3) Last Admin: 04/11/24 14:50 Dose: 650 mg Al Hydroxide/Mg Hydroxide (Magnesium Hydrox/Alum Hydrox 30 Ml Oral.Susp) 30 ml PO Q6H PRN PRN Reason: Heartburn/Nausea Apixaban (Apixaban 5 Mg Tablet) 5 mg PO BID COUNTS INCLUDE 234 BEDS AT THE [facility] Last Admin: 04/23/24 08:11 Dose: 5 mg Diltiazem HCl (Diltiazem Hcl Cd 240 Mg Cap.Er.Deg) 240 mg PO DAILY COUNTS INCLUDE 234 BEDS AT THE [facility]; Protocol Last Admin: 04/23/24 08:11 Dose: 240 mg Donepezil HCl (Donepezil Hcl 10 Mg Tablet) 10 mg PO DAILY COUNTS INCLUDE 234 BEDS AT THE [facility] Last Admin: 04/23/24 08:11 Dose: 10 mg Famotidine (Famotidine 20 Mg Tablet) 40 mg PO BEDTIME COUNTS INCLUDE 234 BEDS AT THE [facility] Last Admin: 04/22/24 19:39 Dose: 40 mg Furosemide (Furosemide 40 Mg Tablet) 40 mg PO DAILY COUNTS INCLUDE 234 BEDS AT THE [facility]; Protocol Last Admin: 04/23/24 08:11 Dose: 40 mg Haloperidol (Haloperidol 1 Mg Tablet) 1 mg PO DAILY@1630 COUNTS INCLUDE 234 BEDS AT THE [facility] Last Admin: 04/22/24 15:42 Dose: 1 mg Hydroxyzine HCl (Hydroxyzine Hcl 25 Mg Tablet) 25 mg PO Q6H PRN PRN Reason: Anxiety Last Admin: 04/15/24 20:33 Dose: 25 mg Latanoprost (Latanoprost 0.005 % Ophth Lupis 2.5 Ml Drops) 1 drop EYE-BOTH BEDTIME COUNTS INCLUDE 234 BEDS AT THE [facility] Last Admin: 04/22/24 19:40 Dose: 1 drop Levothyroxine Sodium (Levothyroxine Sodium 75 Mcg Tablet) 75 mcg PO DAILY@0600 COUNTS INCLUDE 234 BEDS AT THE [facility] Last Admin: 04/23/24 05:09 Dose: 75 mcg Lisinopril (Lisinopril 2.5 Mg Tablet) 2.5 mg PO DAILY COUNTS INCLUDE 234 BEDS AT THE [facility]; Protocol Last Admin: 04/23/24 08:11 Dose: 2.5 mg Magnesium Hydroxide (Milk Of Magnesia 30 Ml Oral.Susp) 30 ml PO DAILY PRN PRN Reason: Constipation Memantine (Memantine Hcl 10 Mg Tablet) 10 mg PO BID COUNTS INCLUDE 234 BEDS AT THE [facility] Last Admin: 04/23/24 08:11 Dose: 10 mg Metoprolol Succinate (Metoprolol Succinate Er 100 Mg Tab.Er.24h) 200 mg PO DAILY COUNTS INCLUDE 234 BEDS AT THE [facility]; Protocol Last Admin: 04/23/24 08:11 Dose: 200 mg Olanzapine (Olanzapine 2.5 Mg Tablet) 2.5 mg PO Q4H PRN PRN Reason: Psychosis Omeprazole (Omeprazole 20 Mg Capsule.Dr) 20 mg PO BID@0630,1630 COUNTS INCLUDE 234 BEDS AT THE [facility] Last Admin: 04/23/24 05:38 Dose: 20 mg Potassium Chloride (Potassium Chloride Er 10 Meq Tablet.Er) 10 meq PO BID COUNTS INCLUDE 234 BEDS AT THE [facility] Last Admin: 04/23/24 08:11 Dose: 10 meq Pravastatin Sodium (Pravastatin Sodium 20 Mg Tablet) 20 mg PO DAILY COUNTS INCLUDE 234 BEDS AT THE [facility] Last Admin: 04/23/24 08:12 Dose: 20 mg Tolterodine Tartrate (Tolterodine Tartrate La 4 Mg Cap.Er.24h) 4 mg PO DAILY COUNTS INCLUDE 234 BEDS AT THE [facility] Last Admin: 04/23/24 08:11 Dose: 4 mg Trazodone HCl (Trazodone Hcl 50 Mg Tablet) 50 mg PO BEDTIME MRX1 PRN PRN Reason: Insomnia Last Admin: 04/21/24 20:48 Dose: 50 mg Allergies Allergies Allergy/AdvReac Type Severity Reaction Status Date / Time No Known Allergies Allergy Verified 04/08/24 19:16 Assessment & Plan Assessment & Plan (1) Dementia: Status: Acute Code(s): F03.90 - Unspecified dementia, unspecified severity, without behavioral disturbance, psychotic disturbance, mood disturbance, and anxiety (2) Psychosis: Status: Acute Code(s): F29 - Unspecified psychosis not due to a substance or known physiological condition Plan The patient is a 78-year-old male with a past history of high blood pressure, dementia, hypothyroidism and GERD referred from the emergency room of [facility] for exacerbation of psychosis in the context of worsening dementia. He had been calling the police regarding masked intruders in his home and disorganized behavior. Plan 1. We have increased Aricept and Namenda to target dementia. 2. Since the patient had been sundowning we have decided to use Haldol 1 mg p.o. in the afternoon with good tolerability. 3. Continue 15 minute checks. Reason for continued inpatient stay Substantial Risk for: inability to function, rapid decompensation and med/psych decompensation Time Spent With Patient Time: Total time managing care of this patient today _20___ minutes.
[2024-04-23] MEDS: HaloperidoL 1 MG TABLET PO (16:34)
[2024-04-23 20:00] VITALS: BP 116/62; PULSE 63; RESP 16; TEMP 36.8; O2SAT 93
[2024-04-23] MEDS: Latanoprost 0.005 % Ophth Sol 2.5 ML DROPS 1 DROP EYE-BOTH (20:30)
[2024-04-23] MEDS: Famotidine 20 MG TABLET 40 MG PO (20:30)
[2024-04-24] MEDS: Levothyroxine Sodium 75 MCG TABLET PO (05:13)
[2024-04-24] MEDS: Omeprazole 20 MG CAPSULE.DR PO ×2 (05:43→16:15)
[2024-04-24 07:55] VITALS: BP 128/63; PULSE 62; RESP 18; TEMP 36.7; O2SAT 97
[2024-04-24] MEDS: Memantine HCl 10 MG TABLET PO ×2 (08:11→20:05)
[2024-04-24] MEDS: Furosemide 40 MG TABLET PO (08:11)
[2024-04-24] MEDS: Metoprolol Succinate ER 100 MG TAB.ER.24H 200 MG PO (08:11)
[2024-04-24] MEDS: Apixaban 5 MG TABLET PO ×2 (08:11→20:05)
[2024-04-24] MEDS: Donepezil HCl 10 MG TABLET PO (08:12)
[2024-04-24] MEDS: Pravastatin Sodium 20 MG TABLET PO (08:12)
[2024-04-24] MEDS: lisinopriL 2.5 MG TABLET PO (08:12)
[2024-04-24] MEDS: dilTIAZem HCL CD 240 MG CAP.ER.DEG PO (08:12)
[2024-04-24] MEDS: Tolterodine Tartrate LA 4 MG CAP.ER.24H PO (08:12)
[2024-04-24] MEDS: Potassium Chloride ER 10 MEQ TABLET.ER PO ×2 (08:12→20:05)
--- NOTE | 2024-04-24 11:59 | P.PNPSI_ITS ---
Subjective Subjective Date of Service: 04/24/24 Reason For Visit: unspecified neurocognitive d/o Subjective Notes: Conditional Voluntary Interim History: The patient had been compliant with treatment pleasantly confused slept 7 hours. The social media intern reported the family is trying to work on long-term placement. On interview the patient is pleasantly confused no changes in his mental status. Mental Status Exam Mental Status Exam Patient Appearance: Well Grooomed and Appropriate Patient Orientation: Person Level of Consciousness: Awake Patient Behavior: Cooperative Mood Description: Calm Affect Description: Constricted Patient Cognition Impaired: Yes Ability to Follow Directions: Good Speech Pattern: Clear Hallucinations: None Delusions: Not Present Thought Process: Distracted Thought Content: positive for [employer] and positive for Poverty of Content Judgement: Fair Diagnostics Vital Signs (24Hr): Vital Signs - 24 hr 04/23/24 20:00 04/24/24 07:55 Temperature 98.2 F 98.1 F Pulse Rate 63 62 Respiratory Rate 16 18 Blood Pressure 116/62 128/63 Pulse Oximetry 93 97 Oxygen Delivery Method Room Air Room Air BMI result Body Mass Index 33.5 Labs 04/08/24 20:38 Medications Medications Current Medications Acetaminophen (Acetaminophen 325 Mg Tablet) 650 mg PO Q6H PRN PRN Reason: Headache/Pain Mild Scale (1-3) Last Admin: 04/11/24 14:50 Dose: 650 mg Al Hydroxide/Mg Hydroxide (Magnesium Hydrox/Alum Hydrox 30 Ml Oral.Susp) 30 ml PO Q6H PRN PRN Reason: Heartburn/Nausea Apixaban (Apixaban 5 Mg Tablet) 5 mg PO BID [facility] Last Admin: 04/24/24 08:11 Dose: 5 mg Diltiazem HCl (Diltiazem Hcl Cd 240 Mg Cap.Er.Deg) 240 mg PO DAILY [facility]; Protocol Last Admin: 04/24/24 08:12 Dose: 240 mg Donepezil HCl (Donepezil Hcl 10 Mg Tablet) 10 mg PO DAILY [facility] Last Admin: 04/24/24 08:12 Dose: 10 mg Famotidine (Famotidine 20 Mg Tablet) 40 mg PO BEDTIME [facility] Last Admin: 04/23/24 20:30 Dose: 40 mg Furosemide (Furosemide 40 Mg Tablet) 40 mg PO DAILY [facility]; Protocol Last Admin: 04/24/24 08:11 Dose: 40 mg Haloperidol (Haloperidol 1 Mg Tablet) 1 mg PO DAILY@1630 [facility] Last Admin: 04/23/24 16:34 Dose: 1 mg Hydroxyzine HCl (Hydroxyzine Hcl 25 Mg Tablet) 25 mg PO Q6H PRN PRN Reason: Anxiety Last Admin: 04/15/24 20:33 Dose: 25 mg Latanoprost (Latanoprost 0.005 % Ophth Lupis 2.5 Ml Drops) 1 drop EYE-BOTH BEDTIME [facility] Last Admin: 04/23/24 20:30 Dose: 1 drop Levothyroxine Sodium (Levothyroxine Sodium 75 Mcg Tablet) 75 mcg PO DAILY@0600 [facility] Last Admin: 04/24/24 05:13 Dose: 75 mcg Lisinopril (Lisinopril 2.5 Mg Tablet) 2.5 mg PO DAILY [facility]; Protocol Last Admin: 04/24/24 08:12 Dose: 2.5 mg Magnesium Hydroxide (Milk Of Magnesia 30 Ml Oral.Susp) 30 ml PO DAILY PRN PRN Reason: Constipation Memantine (Memantine Hcl 10 Mg Tablet) 10 mg PO BID [facility] Last Admin: 04/24/24 08:11 Dose: 10 mg Metoprolol Succinate (Metoprolol Succinate Er 100 Mg Tab.Er.24h) 200 mg PO DAILY [facility]; Protocol Last Admin: 04/24/24 08:11 Dose: 200 mg Olanzapine (Olanzapine 2.5 Mg Tablet) 2.5 mg PO Q4H PRN PRN Reason: Psychosis Omeprazole (Omeprazole 20 Mg Capsule.Dr) 20 mg PO BID@0630,1630 [facility] Last Admin: 04/24/24 05:43 Dose: 20 mg Potassium Chloride (Potassium Chloride Er 10 Meq Tablet.Er) 10 meq PO BID [facility] Last Admin: 04/24/24 08:12 Dose: 10 meq Pravastatin Sodium (Pravastatin Sodium 20 Mg Tablet) 20 mg PO DAILY [facility] Last Admin: 04/24/24 08:12 Dose: 20 mg Tolterodine Tartrate (Tolterodine Tartrate La 4 Mg Cap.Er.24h) 4 mg PO DAILY [facility] Last Admin: 04/24/24 08:12 Dose: 4 mg Trazodone HCl (Trazodone Hcl 50 Mg Tablet) 50 mg PO BEDTIME MRX1 PRN PRN Reason: Insomnia Last Admin: 04/21/24 20:48 Dose: 50 mg Allergies Allergies Allergy/AdvReac Type Severity Reaction Status Date / Time No Known Allergies Allergy Verified 04/08/24 19:16 Assessment & Plan Assessment & Plan (1) Dementia: Status: Acute Code(s): F03.90 - Unspecified dementia, unspecified severity, without behavioral disturbance, psychotic disturbance, mood disturbance, and anxiety (2) Psychosis: Status: Acute Code(s): F29 - Unspecified psychosis not due to a substance or known physiological condition Plan The patient is a 78-year-old male with a past history of high blood pressure, dementia, hypothyroidism and GERD referred from the emergency room of [facility] for exacerbation of psychosis in the context of worsening dementia. He had been calling the police regarding masked intruders in his home and disorganized behavior. Plan 1. We have increased Aricept and Namenda to target dementia. 2. Since the patient had been sundowning we have decided to use Haldol 1 mg p.o. in the afternoon with good tolerability. 3. Continue 15 minute checks. Reason for continued inpatient stay Substantial Risk for: inability to function, rapid decompensation and med/psych decompensation Time Spent With Patient Time: Total time managing care of this patient today __20__ minutes.
[2024-04-24] MEDS: HaloperidoL 1 MG TABLET PO (16:15)
[2024-04-24 20:00] VITALS: BP 112/60; PULSE 55; RESP 18; TEMP 36.6; O2SAT 96
[2024-04-24] MEDS: Latanoprost 0.005 % Ophth Sol 2.5 ML DROPS 1 DROP EYE-BOTH (20:04)
[2024-04-24] MEDS: Famotidine 20 MG TABLET 40 MG PO (20:05)
[2024-04-25] MEDS: Levothyroxine Sodium 75 MCG TABLET PO (05:58)
[2024-04-25] MEDS: Omeprazole 20 MG CAPSULE.DR PO ×2 (05:58→16:30)
[2024-04-25 08:16] VITALS: BP 122/62; PULSE 60; RESP 20; TEMP 36.2; O2SAT 96
[2024-04-25] MEDS: Apixaban 5 MG TABLET PO ×2 (08:18→20:39)
[2024-04-25] MEDS: dilTIAZem HCL CD 240 MG CAP.ER.DEG PO (08:18)
[2024-04-25] MEDS: Donepezil HCl 10 MG TABLET PO (08:18)
[2024-04-25] MEDS: lisinopriL 2.5 MG TABLET PO (08:18)
[2024-04-25] MEDS: Furosemide 40 MG TABLET PO (08:19)
[2024-04-25] MEDS: Memantine HCl 10 MG TABLET PO ×2 (08:19→20:40)
[2024-04-25] MEDS: Pravastatin Sodium 20 MG TABLET PO (08:19)
[2024-04-25] MEDS: Potassium Chloride ER 10 MEQ TABLET.ER PO ×2 (08:20→20:40)
[2024-04-25] MEDS: Tolterodine Tartrate LA 4 MG CAP.ER.24H PO (08:20)
[2024-04-25] MEDS: Metoprolol Succinate ER 100 MG TAB.ER.24H 200 MG PO (08:20)
[2024-04-25 14:36] VITALS: BMI 35.1
[2024-04-25] MEDS: HaloperidoL 1 MG TABLET PO (16:31)
--- NOTE | 2024-04-25 16:40 | P.PNPSI_ITS ---
Subjective Subjective Date of Service: 04/25/24 Reason For Visit: unspecified neurocognitive d/o Subjective Notes: Conditional Voluntary Interim History: The nursing staff reported the patient had been pleasant cooperative confused but easily redirectable. The social services director reported that [facility] had been [facility] waiting for financial clearance. On interview the patient denies new symptoms, waiting for placement. Mental Status Exam Mental Status Exam Patient Appearance: Appropriate Patient Orientation: Person and Situation Level of Consciousness: Awake and Appropriate Patient Behavior: Cooperative Mood Description: Calm Affect Description: Constricted Patient Cognition Impaired: Yes Ability to Follow Directions: Good Speech Pattern: Clear Hallucinations: None Delusions: Not Present Thought Process: Distracted and Slowed Thinking Thought Content: positive for [place] and positive for Circumstantial Judgement: Fair Diagnostics Vital Signs (24Hr): Vital Signs - 24 hr 04/24/24 20:00 04/25/24 08:16 Temperature 97.9 F 97.2 F Pulse Rate 55 60 Respiratory Rate 18 20 Blood Pressure 112/60 122/62 Pulse Oximetry 96 96 Oxygen Delivery Method Room Air Room Air BMI result Body Mass Index 35.1 Labs 04/08/24 20:38 Medications Medications Current Medications Acetaminophen (Acetaminophen 325 Mg Tablet) 650 mg PO Q6H PRN PRN Reason: Headache/Pain Mild Scale (1-3) Last Admin: 04/11/24 14:50 Dose: 650 mg Al Hydroxide/Mg Hydroxide (Magnesium Hydrox/Alum Hydrox 30 Ml Oral.Susp) 30 ml PO Q6H PRN PRN Reason: Heartburn/Nausea Apixaban (Apixaban 5 Mg Tablet) 5 mg PO BID [facility] Last Admin: 04/25/24 08:18 Dose: 5 mg Diltiazem HCl (Diltiazem Hcl Cd 240 Mg Cap.Er.Deg) 240 mg PO DAILY [facility]; Protocol Last Admin: 04/25/24 08:18 Dose: 240 mg Donepezil HCl (Donepezil Hcl 10 Mg Tablet) 10 mg PO DAILY [facility] Last Admin: 04/25/24 08:18 Dose: 10 mg Famotidine (Famotidine 20 Mg Tablet) 40 mg PO BEDTIME [facility] Last Admin: 04/24/24 20:05 Dose: 40 mg Furosemide (Furosemide 40 Mg Tablet) 40 mg PO DAILY [facility]; Protocol Last Admin: 04/25/24 08:19 Dose: 40 mg Haloperidol (Haloperidol 1 Mg Tablet) 1 mg PO DAILY@1630 [facility] Last Admin: 04/25/24 16:31 Dose: 1 mg Hydroxyzine HCl (Hydroxyzine Hcl 25 Mg Tablet) 25 mg PO Q6H PRN PRN Reason: Anxiety Last Admin: 04/15/24 20:33 Dose: 25 mg Latanoprost (Latanoprost 0.005 % Ophth Lupis 2.5 Ml Drops) 1 drop EYE-BOTH BEDTIME [facility] Last Admin: 04/24/24 20:04 Dose: 1 drop Levothyroxine Sodium (Levothyroxine Sodium 75 Mcg Tablet) 75 mcg PO DAILY@0600 [facility] Last Admin: 04/25/24 05:58 Dose: 75 mcg Lisinopril (Lisinopril 2.5 Mg Tablet) 2.5 mg PO DAILY [facility]; Protocol Last Admin: 04/25/24 08:18 Dose: 2.5 mg Magnesium Hydroxide (Milk Of Magnesia 30 Ml Oral.Susp) 30 ml PO DAILY PRN PRN Reason: Constipation Memantine (Memantine Hcl 10 Mg Tablet) 10 mg PO BID [facility] Last Admin: 04/25/24 08:19 Dose: 10 mg Metoprolol Succinate (Metoprolol Succinate Er 100 Mg Tab.Er.24h) 200 mg PO DAILY [facility]; Protocol Last Admin: 04/25/24 08:20 Dose: 200 mg Olanzapine (Olanzapine 2.5 Mg Tablet) 2.5 mg PO Q4H PRN PRN Reason: Psychosis Omeprazole (Omeprazole 20 Mg Capsule.Dr) 20 mg PO BID@0630,1630 [facility] Last Admin: 04/25/24 16:30 Dose: 20 mg Potassium Chloride (Potassium Chloride Er 10 Meq Tablet.Er) 10 meq PO BID [facility] Last Admin: 04/25/24 08:20 Dose: 10 meq Pravastatin Sodium (Pravastatin Sodium 20 Mg Tablet) 20 mg PO DAILY [facility] Last Admin: 04/25/24 08:19 Dose: 20 mg Tolterodine Tartrate (Tolterodine Tartrate La 4 Mg Cap.Er.24h) 4 mg PO DAILY [facility] Last Admin: 04/25/24 08:20 Dose: 4 mg Trazodone HCl (Trazodone Hcl 50 Mg Tablet) 50 mg PO BEDTIME MRX1 PRN PRN Reason: Insomnia Last Admin: 04/21/24 20:48 Dose: 50 mg Allergies Allergies Allergy/AdvReac Type Severity Reaction Status Date / Time No Known Allergies Allergy Verified 04/08/24 19:16 Assessment & Plan Assessment & Plan (1) Dementia: Status: Acute Code(s): F03.90 - Unspecified dementia, unspecified severity, without behavioral disturbance, psychotic disturbance, mood disturbance, and anxiety (2) Psychosis: Status: Acute Code(s): F29 - Unspecified psychosis not due to a substance or known physiological condition Plan The patient is a 78-year-old male with a past history of high blood pressure, dementia, hypothyroidism and GERD referred from the emergency room of [facility] for exacerbation of psychosis in the context of worsening dementia. He had been calling the police regarding masked intruders in his home and disorganized behavior. Plan 1. We have increased Aricept and Namenda to target dementia. 2. Since the patient had been sundowning we have decided to use Haldol 1 mg p.o. in the afternoon with good tolerability. 3. Continue 15 minute checks. Reason for continued inpatient stay Substantial Risk for: inability to function, rapid decompensation and med/psych decompensation Time Spent With Patient Time: Total time managing care of this patient today __20__ minutes.
[2024-04-25 20:00] VITALS: BP 124/67; PULSE 57; RESP 18; TEMP 36.7; O2SAT 95
[2024-04-25] MEDS: Latanoprost 0.005 % Ophth Sol 2.5 ML DROPS 1 DROP EYE-BOTH (20:39)
[2024-04-25] MEDS: Famotidine 20 MG TABLET 40 MG PO (20:39)
[2024-04-25] MEDS: traZODone HCL 50 MG TABLET PO (20:40)
[2024-04-25] MEDS: hydrOXYzine HCL 25 MG TABLET PO (20:40)
[2024-04-26] MEDS: Levothyroxine Sodium 75 MCG TABLET PO (05:53)
[2024-04-26] MEDS: Omeprazole 20 MG CAPSULE.DR PO ×2 (05:53→15:37)
[2024-04-26 07:51] VITALS: BP 114/58; PULSE 52; RESP 18; TEMP 36.8; O2SAT 95
[2024-04-26] MEDS: Donepezil HCl 10 MG TABLET PO (08:22)
[2024-04-26] MEDS: Apixaban 5 MG TABLET PO ×2 (08:22→20:59)
[2024-04-26] MEDS: Memantine HCl 10 MG TABLET PO ×2 (08:22→20:59)
[2024-04-26] MEDS: Pravastatin Sodium 20 MG TABLET PO (08:22)
[2024-04-26] MEDS: Potassium Chloride ER 10 MEQ TABLET.ER PO ×2 (08:23→20:58)
[2024-04-26] MEDS: Tolterodine Tartrate LA 4 MG CAP.ER.24H PO (08:23)
--- NOTE | 2024-04-26 09:45 | PC.NURSE ---
Blood pressure 114/58 and heart rate 52. Gary denied dizziness/lightheadedness. Per order parameters held Lasix, Toprol, Lisinopril, and Cardizem. Dr. Delgado notified of bp/pulse and holding of medications.
--- NOTE | 2024-04-26 10:09 | P.PNPSI_ITS ---
Subjective Subjective Date of Service: 04/26/24 Reason For Visit: unspecified neurocognitive d/o Subjective Notes: Conditional Voluntary Interim History: The nursing staff reported the patient had been pleasantly confused, compliant with treatment. He slept 8 hours. On interview the patient denies new symptoms. The pediatric social worker reported that family is looking for fpc facility placement. Mental Status Exam Mental Status Exam Patient Appearance: Appropriate Patient Orientation: Person and Situation Level of Consciousness: Awake and Appropriate Patient Behavior: Guarded and Passive Mood Description: Withdrawn Affect Description: Constricted Patient Cognition Impaired: Yes Ability to Follow Directions: Good Speech Pattern: Clear Hallucinations: None Delusions: Not Present Thought Process: Distracted and Slowed Thinking Thought Content: positive for [place] and positive for Poverty of Content Judgement: Fair Diagnostics Vital Signs (24Hr): Vital Signs - 24 hr 04/25/24 20:00 04/26/24 07:51 Temperature 98.1 F 98.2 F Pulse Rate 57 52 Respiratory Rate 18 18 Blood Pressure 124/67 114/58 L Pulse Oximetry 95 95 Oxygen Delivery Method Room Air Room Air BMI result Body Mass Index 35.1 Labs 04/08/24 20:38 Medications Medications Current Medications Acetaminophen (Acetaminophen 325 Mg Tablet) 650 mg PO Q6H PRN PRN Reason: Headache/Pain Mild Scale (1-3) Last Admin: 04/11/24 14:50 Dose: 650 mg Al Hydroxide/Mg Hydroxide (Magnesium Hydrox/Alum Hydrox 30 Ml Oral.Susp) 30 ml PO Q6H PRN PRN Reason: Heartburn/Nausea Apixaban (Apixaban 5 Mg Tablet) 5 mg PO BID [facility] Last Admin: 04/26/24 08:22 Dose: 5 mg Diltiazem HCl (Diltiazem Hcl Cd 240 Mg Cap.Er.Deg) 240 mg PO DAILY [facility]; Protocol Last Admin: 04/26/24 08:52 Dose: Not Given Donepezil HCl (Donepezil Hcl 10 Mg Tablet) 10 mg PO DAILY [facility] Last Admin: 04/26/24 08:22 Dose: 10 mg Famotidine (Famotidine 20 Mg Tablet) 40 mg PO BEDTIME [facility] Last Admin: 04/25/24 20:39 Dose: 40 mg Furosemide (Furosemide 40 Mg Tablet) 40 mg PO DAILY [facility]; Protocol Last Admin: 04/26/24 08:52 Dose: Not Given Haloperidol (Haloperidol 1 Mg Tablet) 1 mg PO DAILY@1630 [facility] Last Admin: 04/25/24 16:31 Dose: 1 mg Hydroxyzine HCl (Hydroxyzine Hcl 25 Mg Tablet) 25 mg PO Q6H PRN PRN Reason: Anxiety Last Admin: 04/25/24 20:40 Dose: 25 mg Latanoprost (Latanoprost 0.005 % Ophth Lupis 2.5 Ml Drops) 1 drop EYE-BOTH BEDTIME [facility] Last Admin: 04/25/24 20:39 Dose: 1 drop Levothyroxine Sodium (Levothyroxine Sodium 75 Mcg Tablet) 75 mcg PO DAILY@0600 [facility] Last Admin: 04/26/24 05:53 Dose: 75 mcg Lisinopril (Lisinopril 2.5 Mg Tablet) 2.5 mg PO DAILY [facility]; Protocol Last Admin: 04/26/24 08:52 Dose: Not Given Magnesium Hydroxide (Milk Of Magnesia 30 Ml Oral.Susp) 30 ml PO DAILY PRN PRN Reason: Constipation Memantine (Memantine Hcl 10 Mg Tablet) 10 mg PO BID [facility] Last Admin: 04/26/24 08:22 Dose: 10 mg Metoprolol Succinate (Metoprolol Succinate Er 100 Mg Tab.Er.24h) 200 mg PO DAILY [facility]; Protocol Last Admin: 04/26/24 08:52 Dose: Not Given Olanzapine (Olanzapine 2.5 Mg Tablet) 2.5 mg PO Q4H PRN PRN Reason: Psychosis Omeprazole (Omeprazole 20 Mg Capsule.Dr) 20 mg PO BID@0630,1630 [facility] Last Admin: 04/26/24 05:53 Dose: 20 mg Potassium Chloride (Potassium Chloride Er 10 Meq Tablet.Er) 10 meq PO BID [facility] Last Admin: 04/26/24 08:23 Dose: 10 meq Pravastatin Sodium (Pravastatin Sodium 20 Mg Tablet) 20 mg PO DAILY [facility] Last Admin: 04/26/24 08:22 Dose: 20 mg Tolterodine Tartrate (Tolterodine Tartrate La 4 Mg Cap.Er.24h) 4 mg PO DAILY [facility] Last Admin: 04/26/24 08:23 Dose: 4 mg Trazodone HCl (Trazodone Hcl 50 Mg Tablet) 50 mg PO BEDTIME MRX1 PRN PRN Reason: Insomnia Last Admin: 04/25/24 20:40 Dose: 50 mg Allergies Allergies Allergy/AdvReac Type Severity Reaction Status Date / Time No Known Allergies Allergy Verified 04/08/24 19:16 Assessment & Plan Assessment & Plan (1) Dementia: Status: Acute Code(s): F03.90 - Unspecified dementia, unspecified severity, without behavioral disturbance, psychotic disturbance, mood disturbance, and anxiety (2) Psychosis: Status: Acute Code(s): F29 - Unspecified psychosis not due to a substance or known physiological condition Plan The patient is a 78-year-old male with a past history of high blood pressure, dementia, hypothyroidism and GERD referred from the emergency room of [facility] for exacerbation of psychosis in the context of worsening dementia. He had been calling the police regarding masked intruders in his home and disorganized behavior. Plan 1. We have increased Aricept and Namenda to target dementia. 2. Since the patient had been sundowning we have decided to use Haldol 1 mg p.o. in the afternoon with good tolerability. 3. Continue 15 minute checks. Reason for continued inpatient stay Substantial Risk for: inability to function, rapid decompensation and med/psych decompensation Time Spent With Patient Time: Total time managing care of this patient today _20___ minutes.
[2024-04-26] MEDS: HaloperidoL 1 MG TABLET PO (15:37)
[2024-04-26 19:49] VITALS: BP 124/60; PULSE 65; TEMP 36.5; O2SAT 97
[2024-04-26] MEDS: Latanoprost 0.005 % Ophth Sol 2.5 ML DROPS 1 DROP EYE-BOTH (20:58)
[2024-04-26] MEDS: Famotidine 20 MG TABLET 40 MG PO (20:58)
[2024-04-26] MEDS: hydrOXYzine HCL 25 MG TABLET PO (20:59)
[2024-04-26] MEDS: traZODone HCL 50 MG TABLET PO (20:59)
[2024-04-27] MEDS: Omeprazole 20 MG CAPSULE.DR PO ×2 (06:14→16:17)
[2024-04-27] MEDS: Levothyroxine Sodium 75 MCG TABLET PO (06:14)
[2024-04-27 07:55] VITALS: BP 131/70; PULSE 75; RESP 18; TEMP 36.8; O2SAT 95
[2024-04-27] MEDS: Donepezil HCl 10 MG TABLET PO (08:09)
[2024-04-27] MEDS: Apixaban 5 MG TABLET PO ×2 (08:09→20:23)
[2024-04-27] MEDS: Furosemide 40 MG TABLET PO (08:09)
[2024-04-27] MEDS: Potassium Chloride ER 10 MEQ TABLET.ER PO ×2 (08:09→20:23)
[2024-04-27] MEDS: lisinopriL 2.5 MG TABLET PO (08:09)
[2024-04-27] MEDS: Metoprolol Succinate ER 100 MG TAB.ER.24H 200 MG PO (08:10)
[2024-04-27] MEDS: Memantine HCl 10 MG TABLET PO ×2 (08:10→20:23)
[2024-04-27] MEDS: dilTIAZem HCL CD 240 MG CAP.ER.DEG PO (08:10)
[2024-04-27] MEDS: Pravastatin Sodium 20 MG TABLET PO (08:10)
[2024-04-27] MEDS: Tolterodine Tartrate LA 4 MG CAP.ER.24H PO (08:10)
--- NOTE | 2024-04-27 08:37 | HO.PSYCHPN ---
Subjective Subjective Date of Service: 04/27/24 Reason For Visit: unspecified neurocognitive d/o Subjective Notes: Conditional Voluntary Healthcare Proxy: Yes Interim History: The nursing staff reported the patient been pleasantly confused, compliant with medication he slept all night. His blood pressure medications were held last night since he was bradycardic. On interview the patient denies new symptoms pleasantly confused. Mental Status Exam Mental Status Exam Patient Appearance: Well Grooomed and Appropriate Patient Orientation: Person and Situation Level of Consciousness: Awake and Appropriate Patient Behavior: Guarded and Passive Mood Description: Withdrawn Affect Description: Constricted Patient Cognition Impaired: Yes Ability to Follow Directions: Good Speech Pattern: Clear Hallucinations: None Delusions: Ideas of Reference Thought Process: Distracted and Slowed Thinking Thought Content: positive for [place] and positive for Poverty of Content Judgement: Fair Diagnostics Vital Signs (24Hr): Vital Signs - 24 hr 04/26/24 19:49 Temperature 97.7 F Pulse Rate 65 Blood Pressure 124/60 Pulse Oximetry 97 Oxygen Delivery Method Room Air BMI result Body Mass Index 35.1 Labs 04/08/24 20:38 Medications Medications Current Medications Acetaminophen (Acetaminophen 325 Mg Tablet) 650 mg PO Q6H PRN PRN Reason: Headache/Pain Mild Scale (1-3) Last Admin: 04/11/24 14:50 Dose: 650 mg Al Hydroxide/Mg Hydroxide (Magnesium Hydrox/Alum Hydrox 30 Ml Oral.Susp) 30 ml PO Q6H PRN PRN Reason: Heartburn/Nausea Apixaban (Apixaban 5 Mg Tablet) 5 mg PO BID [facility] Last Admin: 04/27/24 08:09 Dose: 5 mg Diltiazem HCl (Diltiazem Hcl Cd 240 Mg Cap.Er.Deg) 240 mg PO DAILY [facility]; Protocol Last Admin: 04/27/24 08:10 Dose: 240 mg Donepezil HCl (Donepezil Hcl 10 Mg Tablet) 10 mg PO DAILY [facility] Last Admin: 04/27/24 08:09 Dose: 10 mg Famotidine (Famotidine 20 Mg Tablet) 40 mg PO BEDTIME [facility] Last Admin: 04/26/24 20:58 Dose: 40 mg Furosemide (Furosemide 40 Mg Tablet) 40 mg PO DAILY [facility]; Protocol Last Admin: 04/27/24 08:09 Dose: 40 mg Haloperidol (Haloperidol 1 Mg Tablet) 1 mg PO DAILY@1630 [facility] Last Admin: 04/26/24 15:37 Dose: 1 mg Hydroxyzine HCl (Hydroxyzine Hcl 25 Mg Tablet) 25 mg PO Q6H PRN PRN Reason: Anxiety Last Admin: 04/26/24 20:59 Dose: 25 mg Latanoprost (Latanoprost 0.005 % Ophth Lupis 2.5 Ml Drops) 1 drop EYE-BOTH BEDTIME [facility] Last Admin: 04/26/24 20:58 Dose: 1 drop Levothyroxine Sodium (Levothyroxine Sodium 75 Mcg Tablet) 75 mcg PO DAILY@0600 [facility] Last Admin: 04/27/24 06:14 Dose: 75 mcg Lisinopril (Lisinopril 2.5 Mg Tablet) 2.5 mg PO DAILY [facility]; Protocol Last Admin: 04/27/24 08:09 Dose: 2.5 mg Magnesium Hydroxide (Milk Of Magnesia 30 Ml Oral.Susp) 30 ml PO DAILY PRN PRN Reason: Constipation Memantine (Memantine Hcl 10 Mg Tablet) 10 mg PO BID [facility] Last Admin: 04/27/24 08:10 Dose: 10 mg Metoprolol Succinate (Metoprolol Succinate Er 100 Mg Tab.Er.24h) 200 mg PO DAILY [facility]; Protocol Last Admin: 04/27/24 08:10 Dose: 200 mg Olanzapine (Olanzapine 2.5 Mg Tablet) 2.5 mg PO Q4H PRN PRN Reason: Psychosis Omeprazole (Omeprazole 20 Mg Capsule.Dr) 20 mg PO BID@0630,1630 [facility] Last Admin: 04/27/24 06:14 Dose: 20 mg Potassium Chloride (Potassium Chloride Er 10 Meq Tablet.Er) 10 meq PO BID [facility] Last Admin: 04/27/24 08:09 Dose: 10 meq Pravastatin Sodium (Pravastatin Sodium 20 Mg Tablet) 20 mg PO DAILY [facility] Last Admin: 04/27/24 08:10 Dose: 20 mg Tolterodine Tartrate (Tolterodine Tartrate La 4 Mg Cap.Er.24h) 4 mg PO DAILY [facility] Last Admin: 04/27/24 08:10 Dose: 4 mg Trazodone HCl (Trazodone Hcl 50 Mg Tablet) 50 mg PO BEDTIME MRX1 PRN PRN Reason: Insomnia Last Admin: 04/26/24 20:59 Dose: 50 mg Allergies Allergies Allergy/AdvReac Type Severity Reaction Status Date / Time No Known Allergies Allergy Verified 04/08/24 19:16 Assessment & Plan Assessment & Plan (1) Dementia: Status: Acute Code(s): F03.90 - Unspecified dementia, unspecified severity, without behavioral disturbance, psychotic disturbance, mood disturbance, and anxiety (2) Psychosis: Status: Acute Code(s): F29 - Unspecified psychosis not due to a substance or known physiological condition Plan The patient is a 78-year-old male with a past history of high blood pressure, dementia, hypothyroidism and GERD referred from the emergency room of [facility] for exacerbation of psychosis in the context of worsening dementia. He had been calling the police regarding masked intruders in his home and disorganized behavior. Plan 1. We have increased Aricept and Namenda to target dementia. 2. Since the patient had been sundowning we have decided to use Haldol 1 mg p.o. in the afternoon with good tolerability. 3. Continue 15 minute checks. Reason for continued inpatient stay Substantial Risk for: inability to function, rapid decompensation and med/psych decompensation Time Spent With Patient Time: Total time managing care of this patient today __20__ minutes.
[2024-04-27] MEDS: HaloperidoL 1 MG TABLET PO (16:17)
[2024-04-27 20:00] VITALS: BP 117/67; PULSE 65; RESP 16; TEMP 36.8; O2SAT 94
[2024-04-27] MEDS: Latanoprost 0.005 % Ophth Sol 2.5 ML DROPS 1 DROP EYE-BOTH (20:22)
[2024-04-27] MEDS: Famotidine 20 MG TABLET 40 MG PO (20:23)
[2024-04-27] MEDS: hydrOXYzine HCL 25 MG TABLET PO (20:23)
[2024-04-27] MEDS: traZODone HCL 50 MG TABLET PO (20:23)
[2024-04-28] MEDS: Omeprazole 20 MG CAPSULE.DR PO ×2 (06:19→16:34)
[2024-04-28] MEDS: Levothyroxine Sodium 75 MCG TABLET PO (06:19)
[2024-04-28 08:00] VITALS: BP 150/71; PULSE 68; RESP 18; TEMP 36.8; O2SAT 98
[2024-04-28] MEDS: Apixaban 5 MG TABLET PO ×2 (08:43→19:35)
[2024-04-28] MEDS: Metoprolol Succinate ER 100 MG TAB.ER.24H 200 MG PO (08:43)
[2024-04-28] MEDS: Tolterodine Tartrate LA 4 MG CAP.ER.24H PO (08:43)
[2024-04-28] MEDS: lisinopriL 2.5 MG TABLET PO (08:43)
[2024-04-28] MEDS: Pravastatin Sodium 20 MG TABLET PO (08:44)
[2024-04-28] MEDS: Potassium Chloride ER 10 MEQ TABLET.ER PO ×2 (08:44→19:35)
[2024-04-28] MEDS: Memantine HCl 10 MG TABLET PO ×2 (08:44→19:35)
[2024-04-28] MEDS: dilTIAZem HCL CD 240 MG CAP.ER.DEG PO (08:44)
[2024-04-28] MEDS: Donepezil HCl 10 MG TABLET PO (08:44)
[2024-04-28] MEDS: Furosemide 40 MG TABLET PO (08:44)
--- NOTE | 2024-04-28 10:17 | HO.PSYCHPN ---
Subjective Subjective Date of Service: 04/28/24 Reason For Visit: unspecified neurocognitive d/o Subjective Notes: Conditional Voluntary Interim History: The nursing staff reported the patient had been pleasantly confused, took all his medications slept poorly last night and needed trazodone p.r.n.. On interview the patient denies new symptoms, waiting for placement. Mental Status Exam Mental Status Exam Patient Appearance: Well Grooomed Patient Orientation: Person and Situation Level of Consciousness: Awake and Appropriate Patient Behavior: Guarded and Passive Mood Description: Withdrawn Affect Description: Constricted Patient Cognition Impaired: Yes Ability to Follow Directions: Good Speech Pattern: Clear Hallucinations: None Delusions: Not Present Thought Process: Distracted and Slowed Thinking Thought Content: positive for [place] and positive for Poverty of Content Judgement: Fair Diagnostics Vital Signs (24Hr): Vital Signs - 24 hr 04/27/24 20:00 04/28/24 08:00 Temperature 98.2 F 98.2 F Pulse Rate 65 68 Respiratory Rate 16 18 Blood Pressure 117/67 150/71 H Pulse Oximetry 94 98 Oxygen Delivery Method Room Air Room Air BMI result Body Mass Index 35.1 Labs 04/08/24 20:38 Medications Medications Current Medications Acetaminophen (Acetaminophen 325 Mg Tablet) 650 mg PO Q6H PRN PRN Reason: Headache/Pain Mild Scale (1-3) Last Admin: 04/11/24 14:50 Dose: 650 mg Al Hydroxide/Mg Hydroxide (Magnesium Hydrox/Alum Hydrox 30 Ml Oral.Susp) 30 ml PO Q6H PRN PRN Reason: Heartburn/Nausea Apixaban (Apixaban 5 Mg Tablet) 5 mg PO BID [facility] Last Admin: 04/28/24 08:43 Dose: 5 mg Diltiazem HCl (Diltiazem Hcl Cd 240 Mg Cap.Er.Deg) 240 mg PO DAILY [facility]; Protocol Last Admin: 04/28/24 08:44 Dose: 240 mg Donepezil HCl (Donepezil Hcl 10 Mg Tablet) 10 mg PO DAILY [facility] Last Admin: 04/28/24 08:44 Dose: 10 mg Famotidine (Famotidine 20 Mg Tablet) 40 mg PO BEDTIME [facility] Last Admin: 04/27/24 20:23 Dose: 40 mg Furosemide (Furosemide 40 Mg Tablet) 40 mg PO DAILY [facility]; Protocol Last Admin: 04/28/24 08:44 Dose: 40 mg Haloperidol (Haloperidol 1 Mg Tablet) 1 mg PO DAILY@1630 [facility] Last Admin: 04/27/24 16:17 Dose: 1 mg Hydroxyzine HCl (Hydroxyzine Hcl 25 Mg Tablet) 25 mg PO Q6H PRN PRN Reason: Anxiety Last Admin: 04/27/24 20:23 Dose: 25 mg Latanoprost (Latanoprost 0.005 % Ophth Lupis 2.5 Ml Drops) 1 drop EYE-BOTH BEDTIME [facility] Last Admin: 04/27/24 20:22 Dose: 1 drop Levothyroxine Sodium (Levothyroxine Sodium 75 Mcg Tablet) 75 mcg PO DAILY@0600 [facility] Last Admin: 04/28/24 06:19 Dose: 75 mcg Lisinopril (Lisinopril 2.5 Mg Tablet) 2.5 mg PO DAILY [facility]; Protocol Last Admin: 04/28/24 08:43 Dose: 2.5 mg Magnesium Hydroxide (Milk Of Magnesia 30 Ml Oral.Susp) 30 ml PO DAILY PRN PRN Reason: Constipation Memantine (Memantine Hcl 10 Mg Tablet) 10 mg PO BID [facility] Last Admin: 04/28/24 08:44 Dose: 10 mg Metoprolol Succinate (Metoprolol Succinate Er 100 Mg Tab.Er.24h) 200 mg PO DAILY [facility]; Protocol Last Admin: 04/28/24 08:43 Dose: 200 mg Olanzapine (Olanzapine 2.5 Mg Tablet) 2.5 mg PO Q4H PRN PRN Reason: Psychosis Omeprazole (Omeprazole 20 Mg Capsule.Dr) 20 mg PO BID@0630,1630 [facility] Last Admin: 04/28/24 06:19 Dose: 20 mg Potassium Chloride (Potassium Chloride Er 10 Meq Tablet.Er) 10 meq PO BID [facility] Last Admin: 04/28/24 08:44 Dose: 10 meq Pravastatin Sodium (Pravastatin Sodium 20 Mg Tablet) 20 mg PO DAILY [facility] Last Admin: 04/28/24 08:44 Dose: 20 mg Tolterodine Tartrate (Tolterodine Tartrate La 4 Mg Cap.Er.24h) 4 mg PO DAILY [facility] Last Admin: 04/28/24 08:43 Dose: 4 mg Trazodone HCl (Trazodone Hcl 50 Mg Tablet) 50 mg PO BEDTIME MRX1 PRN PRN Reason: Insomnia Last Admin: 04/27/24 20:23 Dose: 50 mg Allergies Allergies Allergy/AdvReac Type Severity Reaction Status Date / Time No Known Allergies Allergy Verified 04/08/24 19:16 Assessment & Plan Assessment & Plan (1) Dementia: Status: Acute Code(s): F03.90 - Unspecified dementia, unspecified severity, without behavioral disturbance, psychotic disturbance, mood disturbance, and anxiety (2) Psychosis: Status: Acute Code(s): F29 - Unspecified psychosis not due to a substance or known physiological condition Plan The patient is a 78-year-old male with a past history of high blood pressure, dementia, hypothyroidism and GERD referred from the emergency room of [facility] for exacerbation of psychosis in the context of worsening dementia. He had been calling the police regarding masked intruders in his home and disorganized behavior. Plan 1. We have increased Aricept and Namenda to target dementia. 2. Since the patient had been sundowning we have decided to use Haldol 1 mg p.o. in the afternoon with good tolerability. 3. Continue 15 minute checks. Reason for continued inpatient stay Substantial Risk for: inability to function, rapid decompensation and med/psych decompensation Time Spent With Patient Time: Total time managing care of this patient today __20__ minutes.
[2024-04-28] MEDS: HaloperidoL 1 MG TABLET PO (16:34)
[2024-04-28 19:31] VITALS: BP 113/61; PULSE 54; RESP 15; TEMP 36.8; O2SAT 94
[2024-04-28] MEDS: Famotidine 20 MG TABLET 40 MG PO (19:35)
[2024-04-28] MEDS: Latanoprost 0.005 % Ophth Sol 2.5 ML DROPS 1 DROP EYE-BOTH (19:35)
[2024-04-29] MEDS: Levothyroxine Sodium 75 MCG TABLET PO (05:10)
[2024-04-29] MEDS: Omeprazole 20 MG CAPSULE.DR PO ×2 (05:39→16:02)
[2024-04-29 08:00] VITALS: BP 127/61; PULSE 58; RESP 16; TEMP 36.8; O2SAT 97
[2024-04-29 08:56] VITALS: BP 127/61; PULSE 58
[2024-04-29] MEDS: Donepezil HCl 10 MG TABLET PO (08:56)
[2024-04-29] MEDS: Memantine HCl 10 MG TABLET PO ×2 (08:56→20:47)
[2024-04-29] MEDS: lisinopriL 2.5 MG TABLET PO (08:56)
[2024-04-29] MEDS: Metoprolol Succinate ER 100 MG TAB.ER.24H 200 MG PO (08:56)
[2024-04-29] MEDS: Furosemide 40 MG TABLET PO (08:56)
[2024-04-29] MEDS: Apixaban 5 MG TABLET PO ×2 (08:56→20:47)
[2024-04-29 08:57] VITALS: BP 127/61; PULSE 58
[2024-04-29] MEDS: Pravastatin Sodium 20 MG TABLET PO (08:57)
[2024-04-29] MEDS: Potassium Chloride ER 10 MEQ TABLET.ER PO ×2 (08:57→20:47)
[2024-04-29] MEDS: dilTIAZem HCL CD 240 MG CAP.ER.DEG PO (08:57)
[2024-04-29] MEDS: Tolterodine Tartrate LA 4 MG CAP.ER.24H PO (08:57)
--- NOTE | 2024-04-29 13:23 | HO.PSYCHPN ---
Subjective Subjective Date of Service: 04/29/24 Reason For Visit: unspecified neurocognitive d/o Subjective Notes: Conditional Voluntary Interim History: The nursing staff reported he had been pleasantly confused, he had poor sleep last night. On interview the patient denies new symptoms cooperative and pleasant. Mental Status Exam Mental Status Exam Patient Appearance: Appropriate Patient Orientation: Person Level of Consciousness: Awake and Appropriate Patient Behavior: Guarded Mood Description: Calm Affect Description: Calm Patient Cognition Impaired: Yes Ability to Follow Directions: Good Speech Pattern: Clear Hallucinations: None Delusions: Ideas of Reference Thought Process: Distracted and Slowed Thinking Thought Content: positive for [place] and positive for Poverty of Content Judgement: Fair Diagnostics Vital Signs (24Hr): Vital Signs - 24 hr 04/28/24 19:31 04/29/24 08:00 04/29/24 08:56 Temperature 98.2 F 98.2 F Pulse Rate 54 58 Respiratory Rate 15 16 Blood Pressure 113/61 127/61 127/61 Pulse Oximetry 94 97 Oxygen Delivery Method Room Air Room Air 04/29/24 08:56 04/29/24 08:56 04/29/24 08:57 Temperature Pulse Rate 58 58 Respiratory Rate Blood Pressure 127/61 127/61 127/61 Pulse Oximetry Oxygen Delivery Method BMI result Body Mass Index 35.1 Labs 04/08/24 20:38 Medications Medications Current Medications Acetaminophen (Acetaminophen 325 Mg Tablet) 650 mg PO Q6H PRN PRN Reason: Headache/Pain Mild Scale (1-3) Last Admin: 04/11/24 14:50 Dose: 650 mg Al Hydroxide/Mg Hydroxide (Magnesium Hydrox/Alum Hydrox 30 Ml Oral.Susp) 30 ml PO Q6H PRN PRN Reason: Heartburn/Nausea Apixaban (Apixaban 5 Mg Tablet) 5 mg PO BID [facility] Last Admin: 04/29/24 08:56 Dose: 5 mg Diltiazem HCl (Diltiazem Hcl Cd 240 Mg Cap.Er.Deg) 240 mg PO DAILY [facility]; Protocol Last Admin: 04/29/24 08:57 Dose: 240 mg Donepezil HCl (Donepezil Hcl 10 Mg Tablet) 10 mg PO DAILY [facility] Last Admin: 04/29/24 08:56 Dose: 10 mg Famotidine (Famotidine 20 Mg Tablet) 40 mg PO BEDTIME [facility] Last Admin: 04/28/24 19:35 Dose: 40 mg Furosemide (Furosemide 40 Mg Tablet) 40 mg PO DAILY [facility]; Protocol Last Admin: 04/29/24 08:56 Dose: 40 mg Haloperidol (Haloperidol 1 Mg Tablet) 1 mg PO DAILY@1630 [facility] Last Admin: 04/28/24 16:34 Dose: 1 mg Hydroxyzine HCl (Hydroxyzine Hcl 25 Mg Tablet) 25 mg PO Q6H PRN PRN Reason: Anxiety Last Admin: 04/27/24 20:23 Dose: 25 mg Latanoprost (Latanoprost 0.005 % Ophth Lupis 2.5 Ml Drops) 1 drop EYE-BOTH BEDTIME [facility] Last Admin: 04/28/24 19:35 Dose: 1 drop Levothyroxine Sodium (Levothyroxine Sodium 75 Mcg Tablet) 75 mcg PO DAILY@0600 [facility] Last Admin: 04/29/24 05:10 Dose: 75 mcg Lisinopril (Lisinopril 2.5 Mg Tablet) 2.5 mg PO DAILY [facility]; Protocol Last Admin: 04/29/24 08:56 Dose: 2.5 mg Magnesium Hydroxide (Milk Of Magnesia 30 Ml Oral.Susp) 30 ml PO DAILY PRN PRN Reason: Constipation Memantine (Memantine Hcl 10 Mg Tablet) 10 mg PO BID [facility] Last Admin: 04/29/24 08:56 Dose: 10 mg Metoprolol Succinate (Metoprolol Succinate Er 100 Mg Tab.Er.24h) 200 mg PO DAILY [facility]; Protocol Last Admin: 04/29/24 08:56 Dose: 200 mg Olanzapine (Olanzapine 2.5 Mg Tablet) 2.5 mg PO Q4H PRN PRN Reason: Psychosis Omeprazole (Omeprazole 20 Mg Capsule.Dr) 20 mg PO BID@0630,1630 [facility] Last Admin: 04/29/24 05:39 Dose: 20 mg Potassium Chloride (Potassium Chloride Er 10 Meq Tablet.Er) 10 meq PO BID [facility] Last Admin: 04/29/24 08:57 Dose: 10 meq Pravastatin Sodium (Pravastatin Sodium 20 Mg Tablet) 20 mg PO DAILY [facility] Last Admin: 04/29/24 08:57 Dose: 20 mg Tolterodine Tartrate (Tolterodine Tartrate La 4 Mg Cap.Er.24h) 4 mg PO DAILY [facility] Last Admin: 04/29/24 08:57 Dose: 4 mg Trazodone HCl (Trazodone Hcl 50 Mg Tablet) 50 mg PO BEDTIME MRX1 PRN PRN Reason: Insomnia Last Admin: 04/27/24 20:23 Dose: 50 mg Allergies Allergies Allergy/AdvReac Type Severity Reaction Status Date / Time No Known Allergies Allergy Verified 04/08/24 19:16 Assessment & Plan Assessment & Plan (1) Dementia: Status: Acute Code(s): F03.90 - Unspecified dementia, unspecified severity, without behavioral disturbance, psychotic disturbance, mood disturbance, and anxiety (2) Psychosis: Status: Acute Code(s): F29 - Unspecified psychosis not due to a substance or known physiological condition Plan The patient is a 78-year-old male with a past history of high blood pressure, dementia, hypothyroidism and GERD referred from the emergency room of [facility] for exacerbation of psychosis in the context of worsening dementia. He had been calling the police regarding masked intruders in his home and disorganized behavior. Plan 1. We have increased Aricept and Namenda to target dementia. 2. Since the patient had been sundowning we have decided to use Haldol 1 mg p.o. in the afternoon with good tolerability. 3. Continue 15 minute checks. Reason for continued inpatient stay Substantial Risk for: inability to function, rapid decompensation and med/psych decompensation Time Spent With Patient Time: Total time managing care of this patient today __20__ minutes.
--- NOTE | 2024-04-29 14:42 | PC.NURSE ---
Gary's daughter Toshia Wood took with her the patient's Iphone, general repair mechanic cable, general repair mechanic box, 2 keys on a big triangle ring and (1) small ring.
[2024-04-29] MEDS: HaloperidoL 1 MG TABLET PO (16:02)
[2024-04-29 20:00] VITALS: BP 104/52; PULSE 66; TEMP 35.9; O2SAT 96
[2024-04-29] MEDS: Famotidine 20 MG TABLET 40 MG PO (20:46)
[2024-04-29] MEDS: traZODone HCL 50 MG TABLET PO (20:47)
[2024-04-29] MEDS: Latanoprost 0.005 % Ophth Sol 2.5 ML DROPS 1 DROP EYE-BOTH (20:47)
[2024-04-30] MEDS: Levothyroxine Sodium 75 MCG TABLET PO (06:00)
[2024-04-30] MEDS: Omeprazole 20 MG CAPSULE.DR PO ×2 (06:01→17:40)
[2024-04-30] MEDS: Metoprolol Succinate ER 100 MG TAB.ER.24H 200 MG PO (09:13)
[2024-04-30] MEDS: lisinopriL 2.5 MG TABLET PO (09:13)
[2024-04-30] MEDS: Memantine HCl 10 MG TABLET PO ×2 (09:14→19:44)
[2024-04-30] MEDS: Potassium Chloride ER 10 MEQ TABLET.ER PO ×2 (09:14→19:44)
[2024-04-30] MEDS: Apixaban 5 MG TABLET PO ×2 (09:14→19:44)
[2024-04-30] MEDS: Tolterodine Tartrate LA 4 MG CAP.ER.24H PO (09:14)
[2024-04-30] MEDS: Donepezil HCl 10 MG TABLET PO (09:14)
[2024-04-30 09:15] VITALS: BP 127/66; PULSE 65; RESP 16; TEMP 36.6; O2SAT 95
[2024-04-30] MEDS: Pravastatin Sodium 20 MG TABLET PO (09:15)
[2024-04-30] MEDS: dilTIAZem HCL CD 240 MG CAP.ER.DEG PO (09:16)
[2024-04-30] MEDS: Furosemide 40 MG TABLET PO (09:16)
--- NOTE | 2024-04-30 10:55 | P.PNPSI_ITS ---
Subjective Subjective Date of Service: 04/30/24 Reason For Visit: unspecified neurocognitive d/o Subjective Notes: Conditional Voluntary Interim History: The nursing staff reported the patient had been calm cooperative slept 6 hours. The social worker assistant reported that [facility] nursing facility will not take him back since he has not been financially cleared yet. On interview the patient denies new symptoms, waiting for placement. Mental Status Exam Mental Status Exam Patient Appearance: Appropriate Patient Orientation: Person and Situation Level of Consciousness: Awake and Appropriate Patient Behavior: Guarded and Passive Mood Description: Calm Affect Description: Constricted Patient Cognition Impaired: Yes Ability to Follow Directions: Good Speech Pattern: Clear Hallucinations: None Delusions: Ideas of Reference Thought Process: Distracted and Slowed Thinking Thought Content: positive for [place] and positive for Poverty of Content Judgement: Fair Diagnostics Vital Signs (24Hr): Vital Signs - 24 hr 04/29/24 20:00 04/30/24 09:15 Temperature 96.7 F L 97.9 F Pulse Rate 66 65 Respiratory Rate 16 Blood Pressure 104/52 L 127/66 Pulse Oximetry 96 95 Oxygen Delivery Method Room Air Room Air BMI result Body Mass Index 35.1 Labs 04/08/24 20:38 Medications Medications Current Medications Acetaminophen (Acetaminophen 325 Mg Tablet) 650 mg PO Q6H PRN PRN Reason: Headache/Pain Mild Scale (1-3) Last Admin: 04/11/24 14:50 Dose: 650 mg Al Hydroxide/Mg Hydroxide (Magnesium Hydrox/Alum Hydrox 30 Ml Oral.Susp) 30 ml PO Q6H PRN PRN Reason: Heartburn/Nausea Apixaban (Apixaban 5 Mg Tablet) 5 mg PO BID [facility] Last Admin: 04/30/24 09:14 Dose: 5 mg Diltiazem HCl (Diltiazem Hcl Cd 240 Mg Cap.Er.Deg) 240 mg PO DAILY [facility]; Protocol Last Admin: 04/30/24 09:16 Dose: 240 mg Donepezil HCl (Donepezil Hcl 10 Mg Tablet) 10 mg PO DAILY [facility] Last Admin: 04/30/24 09:14 Dose: 10 mg Famotidine (Famotidine 20 Mg Tablet) 40 mg PO BEDTIME [facility] Last Admin: 04/29/24 20:46 Dose: 40 mg Furosemide (Furosemide 40 Mg Tablet) 40 mg PO DAILY [facility]; Protocol Last Admin: 04/30/24 09:16 Dose: 40 mg Haloperidol (Haloperidol 1 Mg Tablet) 1 mg PO DAILY@1630 [facility] Last Admin: 04/29/24 16:02 Dose: 1 mg Hydroxyzine HCl (Hydroxyzine Hcl 25 Mg Tablet) 25 mg PO Q6H PRN PRN Reason: Anxiety Last Admin: 04/27/24 20:23 Dose: 25 mg Latanoprost (Latanoprost 0.005 % Ophth Lupis 2.5 Ml Drops) 1 drop EYE-BOTH BEDTIME [facility] Last Admin: 04/29/24 20:47 Dose: 1 drop Levothyroxine Sodium (Levothyroxine Sodium 75 Mcg Tablet) 75 mcg PO DAILY@0600 [facility] Last Admin: 04/30/24 06:00 Dose: 75 mcg Lisinopril (Lisinopril 2.5 Mg Tablet) 2.5 mg PO DAILY [facility]; Protocol Last Admin: 04/30/24 09:13 Dose: 2.5 mg Magnesium Hydroxide (Milk Of Magnesia 30 Ml Oral.Susp) 30 ml PO DAILY PRN PRN Reason: Constipation Memantine (Memantine Hcl 10 Mg Tablet) 10 mg PO BID [facility] Last Admin: 04/30/24 09:14 Dose: 10 mg Metoprolol Succinate (Metoprolol Succinate Er 100 Mg Tab.Er.24h) 200 mg PO DAILY [facility]; Protocol Last Admin: 04/30/24 09:13 Dose: 200 mg Olanzapine (Olanzapine 2.5 Mg Tablet) 2.5 mg PO Q4H PRN PRN Reason: Psychosis Omeprazole (Omeprazole 20 Mg Capsule.Dr) 20 mg PO BID@0630,1630 [facility] Last Admin: 04/30/24 06:01 Dose: 20 mg Potassium Chloride (Potassium Chloride Er 10 Meq Tablet.Er) 10 meq PO BID [facility] Last Admin: 04/30/24 09:14 Dose: 10 meq Pravastatin Sodium (Pravastatin Sodium 20 Mg Tablet) 20 mg PO DAILY [facility] Last Admin: 04/30/24 09:15 Dose: 20 mg Tolterodine Tartrate (Tolterodine Tartrate La 4 Mg Cap.Er.24h) 4 mg PO DAILY [facility] Last Admin: 04/30/24 09:14 Dose: 4 mg Trazodone HCl (Trazodone Hcl 50 Mg Tablet) 50 mg PO BEDTIME MRX1 PRN PRN Reason: Insomnia Last Admin: 04/29/24 20:47 Dose: 50 mg Allergies Allergies Allergy/AdvReac Type Severity Reaction Status Date / Time No Known Allergies Allergy Verified 04/08/24 19:16 Assessment & Plan Assessment & Plan (1) Dementia: Status: Acute Code(s): F03.90 - Unspecified dementia, unspecified severity, without behavioral disturbance, psychotic disturbance, mood disturbance, and anxiety (2) Psychosis: Status: Acute Code(s): F29 - Unspecified psychosis not due to a substance or known physiological condition Plan The patient is a 78-year-old male with a past history of high blood pressure, dementia, hypothyroidism and GERD referred from the emergency room of [facility] for exacerbation of psychosis in the context of worsening dementia. He had been calling the police regarding masked intruders in his home and disorganized behavior. Plan 1. We have increased Aricept and Namenda to target dementia. 2. Since the patient had been sundowning we have decided to use Haldol 1 mg p.o. in the afternoon with good tolerability. 3. Continue 15 minute checks. Reason for continued inpatient stay Substantial Risk for: inability to function, rapid decompensation and med/psych decompensation Time Spent With Patient Time: Total time managing care of this patient today __20__ minutes.
[2024-04-30] MEDS: HaloperidoL 1 MG TABLET PO (17:40)
[2024-04-30 19:42] VITALS: BP 108/59; PULSE 58; RESP 15; TEMP 36.4; O2SAT 94
[2024-04-30] MEDS: Famotidine 20 MG TABLET 40 MG PO (19:44)
[2024-04-30] MEDS: Latanoprost 0.005 % Ophth Sol 2.5 ML DROPS 1 DROP EYE-BOTH (19:45)
[2024-05-01 07:55] VITALS: BP 112/61; PULSE 58; RESP 18; TEMP 36.6; O2SAT 95
[2024-05-01 08:11] VITALS: BP 112/61
[2024-05-01] MEDS: Potassium Chloride ER 10 MEQ TABLET.ER PO ×2 (08:11→20:31)
[2024-05-01] MEDS: Donepezil HCl 10 MG TABLET PO (08:11)
[2024-05-01] MEDS: Furosemide 40 MG TABLET PO (08:11)
[2024-05-01] MEDS: lisinopriL 2.5 MG TABLET PO (08:11)
[2024-05-01] MEDS: Apixaban 5 MG TABLET PO ×2 (08:11→20:31)
[2024-05-01] MEDS: Memantine HCl 10 MG TABLET PO ×2 (08:11→20:31)
[2024-05-01] MEDS: Tolterodine Tartrate LA 4 MG CAP.ER.24H PO (08:11)
[2024-05-01] MEDS: Pravastatin Sodium 20 MG TABLET PO (08:12)
--- NOTE | 2024-05-01 09:39 | PC.NURSE ---
Heart rate 58, diltiazem and metoprolol held per order parameters. Dr. Escamilla notified.
--- NOTE | 2024-05-01 14:29 | P.PNPSI_ITS ---
Subjective Subjective Date of Service: 05/01/24 Reason For Visit: unspecified neurocognitive d/o Subjective Notes: Conditional Voluntary Interim History: The nursing staff reported the patient had been compliant with treatment. The social work case manager reported that the main barrier for discharge his financial clearance. On interview the patient denies new symptoms, waiting for placement Mental Status Exam Mental Status Exam Patient Appearance: Appropriate Patient Orientation: Person and Situation Level of Consciousness: Awake and Appropriate Mood Description: Calm Affect Description: Constricted Patient Cognition Impaired: Yes Ability to Follow Directions: Good Speech Pattern: Clear Hallucinations: None Delusions: Not Present Thought Process: Distracted and Slowed Thinking Thought Content: positive for [place] and positive for Poverty of Content Judgement: Fair Diagnostics Vital Signs (24Hr): Vital Signs - 24 hr 04/30/24 19:42 05/01/24 07:55 05/01/24 08:11 Temperature 97.5 F 97.9 F Pulse Rate 58 58 Respiratory Rate 15 18 Blood Pressure 108/59 L 112/61 112/61 Pulse Oximetry 94 95 Oxygen Delivery Method Room Air Room Air 05/01/24 08:11 Temperature Pulse Rate Respiratory Rate Blood Pressure 112/61 Pulse Oximetry Oxygen Delivery Method BMI result Body Mass Index 35.1 Labs 04/08/24 20:38 Medications Medications Current Medications Acetaminophen (Acetaminophen 325 Mg Tablet) 650 mg PO Q6H PRN PRN Reason: Headache/Pain Mild Scale (1-3) Last Admin: 04/11/24 14:50 Dose: 650 mg Al Hydroxide/Mg Hydroxide (Magnesium Hydrox/Alum Hydrox 30 Ml Oral.Susp) 30 ml PO Q6H PRN PRN Reason: Heartburn/Nausea Apixaban (Apixaban 5 Mg Tablet) 5 mg PO BID COUNT [facility]CLUD[facility] Last Admin: 05/01/24 08:11 Dose: 5 mg Diltiazem HCl (Diltiazem Hcl Cd 240 Mg Cap.Er.Deg) 240 mg PO DAILY [facility]; Protocol Last Admin: 05/01/24 08:14 Dose: Not Given Donepezil HCl (Donepezil Hcl 10 Mg Tablet) 10 mg PO DAILY [facility] Last Admin: 05/01/24 08:11 Dose: 10 mg Famotidine (Famotidine 20 Mg Tablet) 40 mg PO BEDTIME COUNT [facility]CLUD[facility] Last Admin: 04/30/24 19:44 Dose: 40 mg Furosemide (Furosemide 40 Mg Tablet) 40 mg PO DAILY [facility]; Protocol Last Admin: 05/01/24 08:11 Dose: 40 mg Haloperidol (Haloperidol 1 Mg Tablet) 1 mg PO DAILY@1630 [facility] Last Admin: 04/30/24 17:40 Dose: 1 mg Hydroxyzine HCl (Hydroxyzine Hcl 25 Mg Tablet) 25 mg PO Q6H PRN PRN Reason: Anxiety Last Admin: 04/27/24 20:23 Dose: 25 mg Latanoprost (Latanoprost 0.005 % Ophth Lupis 2.5 Ml Drops) 1 drop EYE-BOTH BEDTIME COUNT [facility]CLUDES [facility] Last Admin: 04/30/24 19:45 Dose: 1 drop Levothyroxine Sodium (Levothyroxine Sodium 75 Mcg Tablet) 75 mcg PO DAILY@0600 [facility] Last Admin: 04/30/24 06:00 Dose: 75 mcg Lisinopril (Lisinopril 2.5 Mg Tablet) 2.5 mg PO DAILY COUNT [facility]; Protocol Last Admin: 05/01/24 08:11 Dose: 2.5 mg Magnesium Hydroxide (Milk Of Magnesia 30 Ml Oral.Susp) 30 ml PO DAILY PRN PRN Reason: Constipation Memantine (Memantine Hcl 10 Mg Tablet) 10 mg PO BID COUNT [facility]CLUD[facility] Last Admin: 05/01/24 08:11 Dose: 10 mg Metoprolol Succinate (Metoprolol Succinate Er 100 Mg Tab.Er.24h) 200 mg PO DAILY [facility]; Protocol Last Admin: 05/01/24 08:14 Dose: Not Given Olanzapine (Olanzapine 2.5 Mg Tablet) 2.5 mg PO Q4H PRN PRN Reason: Psychosis Omeprazole (Omeprazole 20 Mg Capsule.Dr) 20 mg PO BID@0630,1630 [facility] Last Admin: 04/30/24 17:40 Dose: 20 mg Potassium Chloride (Potassium Chloride Er 10 Meq Tablet.Er) 10 meq PO BID COUNT [facility]CLUD[facility] Last Admin: 05/01/24 08:11 Dose: 10 meq Pravastatin Sodium (Pravastatin Sodium 20 Mg Tablet) 20 mg PO DAILY COUNT [facility]CLUD[facility] Last Admin: 05/01/24 08:12 Dose: 20 mg Tolterodine Tartrate (Tolterodine Tartrate La 4 Mg Cap.Er.24h) 4 mg PO DAILY COUNT [facility] Last Admin: 05/01/24 08:11 Dose: 4 mg Trazodone HCl (Trazodone Hcl 50 Mg Tablet) 50 mg PO BEDTIME MRX1 PRN PRN Reason: Insomnia Last Admin: 04/29/24 20:47 Dose: 50 mg Allergies Allergies Allergy/AdvReac Type Severity Reaction Status Date / Time No Known Allergies Allergy Verified 04/08/24 19:16 Assessment & Plan Assessment & Plan (1) Dementia: Status: Acute Code(s): F03.90 - Unspecified dementia, unspecified severity, without behavioral disturbance, psychotic disturbance, mood disturbance, and anxiety (2) Psychosis: Status: Acute Code(s): F29 - Unspecified psychosis not due to a substance or known physiological condition Plan The patient is a 78-year-old male with a past history of high blood pressure, dementia, hypothyroidism and GERD referred from the emergency room of [facility] for exacerbation of psychosis in the context of worsening dementia. He had been calling the police regarding masked intruders in his home and disorganized behavior. Plan 1. We have increased Aricept and Namenda to target dementia. 2. Since the patient had been sundowning we have decided to use Haldol 1 mg p.o. in the afternoon with good tolerability. 3. Continue 15 minute checks. Reason for continued inpatient stay Substantial Risk for: inability to function, rapid decompensation and med/psych decompensation Time Spent With Patient Time: Total time managing care of this patient today __20__ minutes.
[2024-05-01] MEDS: HaloperidoL 1 MG TABLET PO (15:30)
[2024-05-01] MEDS: Omeprazole 20 MG CAPSULE.DR PO (15:31)
[2024-05-01 20:00] VITALS: BP 113/65; PULSE 65; RESP 16; TEMP 36.8; O2SAT 95
[2024-05-01] MEDS: Famotidine 20 MG TABLET 40 MG PO (20:31)
[2024-05-01] MEDS: Latanoprost 0.005 % Ophth Sol 2.5 ML DROPS 1 DROP EYE-BOTH (20:32)
[2024-05-02] MEDS: Omeprazole 20 MG CAPSULE.DR PO ×2 (06:01→17:27)
[2024-05-02] MEDS: Levothyroxine Sodium 75 MCG TABLET PO (06:01)
[2024-05-02 08:00] VITALS: BP 119/67; PULSE 71; RESP 18; TEMP 36.4; O2SAT 95
[2024-05-02] MEDS: Metoprolol Succinate ER 100 MG TAB.ER.24H 200 MG PO (08:44)
[2024-05-02] MEDS: dilTIAZem HCL CD 240 MG CAP.ER.DEG PO (08:44)
[2024-05-02] MEDS: Pravastatin Sodium 20 MG TABLET PO (08:44)
[2024-05-02] MEDS: Tolterodine Tartrate LA 4 MG CAP.ER.24H PO (08:44)
[2024-05-02] MEDS: Furosemide 40 MG TABLET PO (08:45)
[2024-05-02] MEDS: Donepezil HCl 10 MG TABLET PO (08:45)
[2024-05-02] MEDS: Potassium Chloride ER 10 MEQ TABLET.ER PO ×2 (08:45→21:05)
[2024-05-02] MEDS: lisinopriL 2.5 MG TABLET PO (08:45)
[2024-05-02] MEDS: Apixaban 5 MG TABLET PO ×2 (08:45→21:05)
[2024-05-02] MEDS: Memantine HCl 10 MG TABLET PO ×2 (08:46→21:05)
[2024-05-02 14:50] VITALS: BMI 35.3
--- NOTE | 2024-05-02 16:12 | P.PNPSI_ITS ---
Subjective Subjective Date of Service: 05/02/24 Reason For Visit: unspecified neurocognitive d/o Subjective Notes: Conditional Voluntary Interim History: The nursing staff reported no changes in mental status pleasantly confused with good appetite. He had been social with peers. On interview the patient denies new symptoms pleasantly confused. Mental Status Exam Mental Status Exam Patient Appearance: Appropriate Patient Orientation: Person Level of Consciousness: Awake and Appropriate Patient Behavior: Guarded and Passive Mood Description: Calm Affect Description: Constricted Patient Cognition Impaired: Yes Ability to Follow Directions: Good Speech Pattern: Clear Hallucinations: None Delusions: Not Present Thought Process: Distracted and Slowed Thinking Thought Content: positive for [place] and positive for Poverty of Content Judgement: Fair Diagnostics Vital Signs (24Hr): Vital Signs - 24 hr 05/01/24 20:00 05/02/24 08:00 Temperature 98.2 F 97.6 F Pulse Rate 65 71 Respiratory Rate 16 18 Blood Pressure 113/65 119/67 Pulse Oximetry 95 95 Oxygen Delivery Method Room Air Room Air BMI result Body Mass Index 35.3 Labs 04/08/24 20:38 Medications Medications Current Medications Acetaminophen (Acetaminophen 325 Mg Tablet) 650 mg PO Q6H PRN PRN Reason: Headache/Pain Mild Scale (1-3) Last Admin: 04/11/24 14:50 Dose: 650 mg Al Hydroxide/Mg Hydroxide (Magnesium Hydrox/Alum Hydrox 30 Ml Oral.Susp) 30 ml PO Q6H PRN PRN Reason: Heartburn/Nausea Apixaban (Apixaban 5 Mg Tablet) 5 mg PO BID [facility] Last Admin: 05/02/24 08:45 Dose: 5 mg Diltiazem HCl (Diltiazem Hcl Cd 240 Mg Cap.Er.Deg) 240 mg PO DAILY [facility]; Protocol Last Admin: 05/02/24 08:44 Dose: 240 mg Donepezil HCl (Donepezil Hcl 10 Mg Tablet) 10 mg PO DAILY [facility] Last Admin: 05/02/24 08:45 Dose: 10 mg Famotidine (Famotidine 20 Mg Tablet) 40 mg PO BEDTIME [facility] Last Admin: 05/01/24 20:31 Dose: 40 mg Furosemide (Furosemide 40 Mg Tablet) 40 mg PO DAILY [facility]; Protocol Last Admin: 05/02/24 08:45 Dose: 40 mg Haloperidol (Haloperidol 1 Mg Tablet) 1 mg PO DAILY@1630 [facility] Last Admin: 05/01/24 15:30 Dose: 1 mg Hydroxyzine HCl (Hydroxyzine Hcl 25 Mg Tablet) 25 mg PO Q6H PRN PRN Reason: Anxiety Last Admin: 04/27/24 20:23 Dose: 25 mg Latanoprost (Latanoprost 0.005 % Ophth Lupis 2.5 Ml Drops) 1 drop EYE-BOTH BEDTIME [facility] Last Admin: 05/01/24 20:32 Dose: 1 drop Levothyroxine Sodium (Levothyroxine Sodium 75 Mcg Tablet) 75 mcg PO DAILY@0600 [facility] Last Admin: 05/02/24 08:43 Dose: Not Given Lisinopril (Lisinopril 2.5 Mg Tablet) 2.5 mg PO DAILY [facility]; Protocol Last Admin: 05/02/24 08:45 Dose: 2.5 mg Magnesium Hydroxide (Milk Of Magnesia 30 Ml Oral.Susp) 30 ml PO DAILY PRN PRN Reason: Constipation Memantine (Memantine Hcl 10 Mg Tablet) 10 mg PO BID [facility] Last Admin: 05/02/24 08:46 Dose: 10 mg Metoprolol Succinate (Metoprolol Succinate Er 100 Mg Tab.Er.24h) 200 mg PO DAILY [facility]; Protocol Last Admin: 05/02/24 08:44 Dose: 200 mg Olanzapine (Olanzapine 2.5 Mg Tablet) 2.5 mg PO Q4H PRN PRN Reason: Psychosis Omeprazole (Omeprazole 20 Mg Capsule.Dr) 20 mg PO BID@0630,1630 [facility] Last Admin: 05/02/24 08:43 Dose: Not Given Potassium Chloride (Potassium Chloride Er 10 Meq Tablet.Er) 10 meq PO BID [facility] Last Admin: 05/02/24 08:45 Dose: 10 meq Pravastatin Sodium (Pravastatin Sodium 20 Mg Tablet) 20 mg PO DAILY [facility] Last Admin: 05/02/24 08:44 Dose: 20 mg Tolterodine Tartrate (Tolterodine Tartrate La 4 Mg Cap.Er.24h) 4 mg PO DAILY [facility] Last Admin: 05/02/24 08:44 Dose: 4 mg Trazodone HCl (Trazodone Hcl 50 Mg Tablet) 50 mg PO BEDTIME MRX1 PRN PRN Reason: Insomnia Last Admin: 04/29/24 20:47 Dose: 50 mg Allergies Allergies Allergy/AdvReac Type Severity Reaction Status Date / Time No Known Allergies Allergy Verified 04/08/24 19:16 Assessment & Plan Assessment & Plan (1) Dementia: Status: Acute Code(s): F03.90 - Unspecified dementia, unspecified severity, without behavioral disturbance, psychotic disturbance, mood disturbance, and anxiety (2) Psychosis: Status: Acute Code(s): F29 - Unspecified psychosis not due to a substance or known physiological condition Plan The patient is a 78-year-old male with a past history of high blood pressure, dementia, hypothyroidism and GERD referred from the emergency room of [facility] for exacerbation of psychosis in the context of worsening dementia. He had been calling the police regarding masked intruders in his home and disorganized behavior. Plan 1. We have increased Aricept and Namenda to target dementia. 2. Since the patient had been sundowning we have decided to use Haldol 1 mg p.o. in the afternoon with good tolerability. 3. Continue 15 minute checks. Reason for continued inpatient stay Substantial Risk for: inability to function, rapid decompensation and med/psych decompensation Time Spent With Patient Time: Total time managing care of this patient today _20___ minutes.
[2024-05-02] MEDS: HaloperidoL 1 MG TABLET PO (17:27)
[2024-05-02 20:00] VITALS: BP 117/64; PULSE 60; RESP 16; TEMP 36.8; O2SAT 98
[2024-05-02] MEDS: Latanoprost 0.005 % Ophth Sol 2.5 ML DROPS 1 DROP EYE-BOTH (21:05)
[2024-05-02] MEDS: Famotidine 20 MG TABLET 40 MG PO (21:05)
[2024-05-03] MEDS: Levothyroxine Sodium 75 MCG TABLET PO (06:00)
[2024-05-03] MEDS: Omeprazole 20 MG CAPSULE.DR PO ×2 (06:00→17:23)
[2024-05-03 08:00] VITALS: BP 120/70; PULSE 60; RESP 16; TEMP 36.3; O2SAT 96
[2024-05-03] MEDS: lisinopriL 2.5 MG TABLET PO (09:09)
[2024-05-03] MEDS: Apixaban 5 MG TABLET PO ×2 (09:09→20:59)
[2024-05-03] MEDS: Donepezil HCl 10 MG TABLET PO (09:09)
[2024-05-03] MEDS: Memantine HCl 10 MG TABLET PO ×2 (09:10→21:00)
[2024-05-03] MEDS: Furosemide 40 MG TABLET PO (09:10)
[2024-05-03] MEDS: Pravastatin Sodium 20 MG TABLET PO (09:10)
[2024-05-03] MEDS: dilTIAZem HCL CD 240 MG CAP.ER.DEG PO (09:10)
[2024-05-03] MEDS: Metoprolol Succinate ER 100 MG TAB.ER.24H 200 MG PO (09:10)
[2024-05-03] MEDS: Potassium Chloride ER 10 MEQ TABLET.ER PO ×2 (09:10→20:59)
[2024-05-03] MEDS: Tolterodine Tartrate LA 4 MG CAP.ER.24H PO (09:10)
--- NOTE | 2024-05-03 16:16 | P.PNPSI_ITS ---
Subjective Subjective Date of Service: 05/03/24 Reason For Visit: unspecified neurocognitive d/o Interim History: Alert, interactive with a group of peers and engaging. Playing a card game with peers-while encouraging them and supporting and assisting them. Reports feeling well,unclear why he is here, yet reports he is comfortable. Team reports no current concerns. Medication Compliance: Yes Side effects from medications: No Attending Groups: Yes Review of Systems Acute medical concerns: No Review of Systems Review of Systems He denies this a.m Mental Status Exam Mental Status Exam Patient Appearance: Appropriate Patient Orientation: Person Level of Consciousness: Awake and Appropriate Patient Behavior: Talkative and Good Eye Contact Mood Description: Calm Affect Description: Constricted Patient Cognition Impaired: Yes Ability to Follow Directions: Good Speech Pattern: Clear Hallucinations: None Delusions: Not Present Thought Process: Distracted and Slowed Thinking Thought Content: positive for [place] and positive for Poverty of Content Judgement: Fair Diagnostics Vital Signs (24Hr): Vital Signs - 24 hr 05/02/24 20:00 05/03/24 08:00 Temperature 98.2 F 97.4 F Pulse Rate 60 60 Respiratory Rate 16 16 Blood Pressure 117/64 120/70 Pulse Oximetry 98 96 Oxygen Delivery Method Room Air Room Air BMI result Body Mass Index 35.3 Labs 04/08/24 20:38 Medications Medications Current Medications Acetaminophen (Acetaminophen 325 Mg Tablet) 650 mg PO Q6H PRN PRN Reason: Headache/Pain Mild Scale (1-3) Last Admin: 04/11/24 14:50 Dose: 650 mg Al Hydroxide/Mg Hydroxide (Magnesium Hydrox/Alum Hydrox 30 Ml Oral.Susp) 30 ml PO Q6H PRN PRN Reason: Heartburn/Nausea Apixaban (Apixaban 5 Mg Tablet) 5 mg PO BID [facility] Last Admin: 05/03/24 09:09 Dose: 5 mg Diltiazem HCl (Diltiazem Hcl Cd 240 Mg Cap.Er.Deg) 240 mg PO DAILY [facility]; Protocol Last Admin: 05/03/24 09:10 Dose: 240 mg Donepezil HCl (Donepezil Hcl 10 Mg Tablet) 10 mg PO DAILY [facility] Last Admin: 05/03/24 09:09 Dose: 10 mg Famotidine (Famotidine 20 Mg Tablet) 40 mg PO BEDTIME [facility] Last Admin: 05/02/24 21:05 Dose: 40 mg Furosemide (Furosemide 40 Mg Tablet) 40 mg PO DAILY [facility]; Protocol Last Admin: 05/03/24 09:10 Dose: 40 mg Haloperidol (Haloperidol 1 Mg Tablet) 1 mg PO DAILY@1630 [facility] Last Admin: 05/02/24 17:27 Dose: 1 mg Hydroxyzine HCl (Hydroxyzine Hcl 25 Mg Tablet) 25 mg PO Q6H PRN PRN Reason: Anxiety Last Admin: 04/27/24 20:23 Dose: 25 mg Latanoprost (Latanoprost 0.005 % Ophth Lupis 2.5 Ml Drops) 1 drop EYE-BOTH BEDTIME [facility] Last Admin: 05/02/24 21:05 Dose: 1 drop Levothyroxine Sodium (Levothyroxine Sodium 75 Mcg Tablet) 75 mcg PO DAILY@0600 [facility] Last Admin: 05/03/24 06:00 Dose: 75 mcg Lisinopril (Lisinopril 2.5 Mg Tablet) 2.5 mg PO DAILY [facility]; Protocol Last Admin: 05/03/24 09:09 Dose: 2.5 mg Magnesium Hydroxide (Milk Of Magnesia 30 Ml Oral.Susp) 30 ml PO DAILY PRN PRN Reason: Constipation Memantine (Memantine Hcl 10 Mg Tablet) 10 mg PO BID [facility] Last Admin: 05/03/24 09:10 Dose: 10 mg Metoprolol Succinate (Metoprolol Succinate Er 100 Mg Tab.Er.24h) 200 mg PO DAILY [facility]; Protocol Last Admin: 05/03/24 09:10 Dose: 200 mg Olanzapine (Olanzapine 2.5 Mg Tablet) 2.5 mg PO Q4H PRN PRN Reason: Psychosis Omeprazole (Omeprazole 20 Mg Capsule.Dr) 20 mg PO BID@0630,1630 [facility] Last Admin: 05/03/24 06:00 Dose: 20 mg Potassium Chloride (Potassium Chloride Er 10 Meq Tablet.Er) 10 meq PO BID [facility] Last Admin: 05/03/24 09:10 Dose: 10 meq Pravastatin Sodium (Pravastatin Sodium 20 Mg Tablet) 20 mg PO DAILY [facility] Last Admin: 05/03/24 09:10 Dose: 20 mg Tolterodine Tartrate (Tolterodine Tartrate La 4 Mg Cap.Er.24h) 4 mg PO DAILY [facility] Last Admin: 05/03/24 09:10 Dose: 4 mg Trazodone HCl (Trazodone Hcl 50 Mg Tablet) 50 mg PO BEDTIME MRX1 PRN PRN Reason: Insomnia Last Admin: 04/29/24 20:47 Dose: 50 mg Allergies Allergies Allergy/AdvReac Type Severity Reaction Status Date / Time No Known Allergies Allergy Verified 04/08/24 19:16 Assessment & Plan Assessment & Plan (1) Dementia: Status: Acute Code(s): F03.90 - Unspecified dementia, unspecified severity, without behavioral disturbance, psychotic disturbance, mood disturbance, and anxiety (2) Psychosis: Status: Acute Code(s): F29 - Unspecified psychosis not due to a substance or known physiological condition Plan The patient is a 78-year-old male with a past history of high blood pressure, dementia, hypothyroidism and GERD referred from the emergency room of [facility] for exacerbation of psychosis in the context of worsening dementia. He had been calling the police regarding masked intruders in his home and disorganized behavior. Plan 1. We have increased Aricept and Namenda to target dementia. 2. Since the patient had been sundowning we have decided to use Haldol 1 mg p.o. in the afternoon with good tolerability. 3. Continue 15 minute checks. 05/03/24: Continue current plan of care Reason for continued inpatient stay Substantial Risk for: rapid decompensation Time Spent With Patient Time: Total time managing care of this patient today ____ minutes.
[2024-05-03] MEDS: HaloperidoL 1 MG TABLET PO (17:23)
[2024-05-03 20:00] VITALS: BP 105/62; PULSE 56; RESP 16; TEMP 36.6; O2SAT 96
[2024-05-03] MEDS: Famotidine 20 MG TABLET 40 MG PO (20:59)
[2024-05-03] MEDS: Latanoprost 0.005 % Ophth Sol 2.5 ML DROPS 1 DROP EYE-BOTH (20:59)
[2024-05-03] MEDS: traZODone HCL 50 MG TABLET PO (20:59)
[2024-05-04] MEDS: Omeprazole 20 MG CAPSULE.DR PO ×2 (05:55→15:30)
[2024-05-04] MEDS: Levothyroxine Sodium 75 MCG TABLET PO (05:55)
[2024-05-04 08:00] VITALS: BP 119/69; PULSE 73; RESP 18; TEMP 36.5; O2SAT 96
[2024-05-04] MEDS: lisinopriL 2.5 MG TABLET PO (08:23)
[2024-05-04] MEDS: Donepezil HCl 10 MG TABLET PO (08:23)
[2024-05-04] MEDS: Tolterodine Tartrate LA 4 MG CAP.ER.24H PO (08:23)
[2024-05-04] MEDS: Memantine HCl 10 MG TABLET PO ×2 (08:23→20:14)
[2024-05-04] MEDS: dilTIAZem HCL CD 240 MG CAP.ER.DEG PO (08:23)
[2024-05-04] MEDS: Potassium Chloride ER 10 MEQ TABLET.ER PO ×2 (08:24→20:14)
[2024-05-04] MEDS: Apixaban 5 MG TABLET PO ×2 (08:24→20:14)
[2024-05-04] MEDS: Metoprolol Succinate ER 100 MG TAB.ER.24H 200 MG PO (08:24)
[2024-05-04] MEDS: Pravastatin Sodium 20 MG TABLET PO (08:24)
--- NOTE | 2024-05-04 10:35 | P.PNPSI_ITS ---
Subjective Subjective Date of Service: 05/04/24 Reason For Visit: unspecified neurocognitive d/o Interim History: Patient seen. Reports he is doing OK. Was seen in the hallway and was talking to a patient. He was pleasant and polite. Pleasantly confused. He had some word finding difficulties when trying to explain things. Says that he likes to take a break away from the common room because there are 2 patients that keep talking a lot but he is described as interactive with a group of peers and engaging. Says he slept well. Review of Systems Review of Systems He denies this a.m Yes all other systems are reviewed and are negative and Unobtainable due to mental status Mental Status Exam Mental Status Exam Patient Appearance: Appropriate Patient Orientation: Person Level of Consciousness: Awake and Appropriate Patient Behavior: Talkative and Good Eye Contact Mood Description: Calm Affect Description: Constricted Patient Cognition Impaired: Yes Ability to Follow Directions: Good Speech Pattern: Clear Diagnostics Vital Signs (24Hr): Vital Signs - 24 hr 05/03/24 20:00 05/04/24 08:00 Temperature 98 F 97.7 F Pulse Rate 56 73 Respiratory Rate 16 18 Blood Pressure 105/62 119/69 Pulse Oximetry 96 96 Oxygen Delivery Method Room Air Room Air BMI result Body Mass Index 35.3 Labs 04/08/24 20:38 Medications Medications Current Medications Acetaminophen (Acetaminophen 325 Mg Tablet) 650 mg PO Q6H PRN PRN Reason: Headache/Pain Mild Scale (1-3) Last Admin: 04/11/24 14:50 Dose: 650 mg Al Hydroxide/Mg Hydroxide (Magnesium Hydrox/Alum Hydrox 30 Ml Oral.Susp) 30 ml PO Q6H PRN PRN Reason: Heartburn/Nausea Apixaban (Apixaban 5 Mg Tablet) 5 mg PO BID [facility] Last Admin: 05/04/24 08:24 Dose: 5 mg Diltiazem HCl (Diltiazem Hcl Cd 240 Mg Cap.Er.Deg) 240 mg PO DAILY [facility]; Protocol Last Admin: 05/04/24 08:23 Dose: 240 mg Donepezil HCl (Donepezil Hcl 10 Mg Tablet) 10 mg PO DAILY [facility] Last Admin: 05/04/24 08:23 Dose: 10 mg Famotidine (Famotidine 20 Mg Tablet) 40 mg PO BEDTIME [facility] Last Admin: 05/03/24 20:59 Dose: 40 mg Furosemide (Furosemide 40 Mg Tablet) 40 mg PO DAILY [facility]; Protocol Last Admin: 05/03/24 09:10 Dose: 40 mg Haloperidol (Haloperidol 1 Mg Tablet) 1 mg PO DAILY@1630 [facility] Last Admin: 05/03/24 17:23 Dose: 1 mg Hydroxyzine HCl (Hydroxyzine Hcl 25 Mg Tablet) 25 mg PO Q6H PRN PRN Reason: Anxiety Last Admin: 04/27/24 20:23 Dose: 25 mg Latanoprost (Latanoprost 0.005 % Ophth Lupis 2.5 Ml Drops) 1 drop EYE-BOTH BEDTIME [facility] Last Admin: 05/03/24 20:59 Dose: 1 drop Levothyroxine Sodium (Levothyroxine Sodium 75 Mcg Tablet) 75 mcg PO DAILY@0600 [facility] Last Admin: 05/04/24 05:55 Dose: 75 mcg Lisinopril (Lisinopril 2.5 Mg Tablet) 2.5 mg PO DAILY [facility]; Protocol Last Admin: 05/04/24 08:23 Dose: 2.5 mg Magnesium Hydroxide (Milk Of Magnesia 30 Ml Oral.Susp) 30 ml PO DAILY PRN PRN Reason: Constipation Memantine (Memantine Hcl 10 Mg Tablet) 10 mg PO BID [facility] Last Admin: 05/04/24 08:23 Dose: 10 mg Metoprolol Succinate (Metoprolol Succinate Er 100 Mg Tab.Er.24h) 200 mg PO DAILY [facility]; Protocol Last Admin: 05/04/24 08:24 Dose: 200 mg Olanzapine (Olanzapine 2.5 Mg Tablet) 2.5 mg PO Q4H PRN PRN Reason: Psychosis Omeprazole (Omeprazole 20 Mg Capsule.Dr) 20 mg PO BID@0630,1630 [facility] Last Admin: 05/04/24 05:55 Dose: 20 mg Potassium Chloride (Potassium Chloride Er 10 Meq Tablet.Er) 10 meq PO BID [facility] Last Admin: 05/04/24 08:24 Dose: 10 meq Pravastatin Sodium (Pravastatin Sodium 20 Mg Tablet) 20 mg PO DAILY [facility] Last Admin: 05/04/24 08:24 Dose: 20 mg Tolterodine Tartrate (Tolterodine Tartrate La 4 Mg Cap.Er.24h) 4 mg PO DAILY [facility] Last Admin: 05/04/24 08:23 Dose: 4 mg Trazodone HCl (Trazodone Hcl 50 Mg Tablet) 50 mg PO BEDTIME MRX1 PRN PRN Reason: Insomnia Last Admin: 05/03/24 20:59 Dose: 50 mg Allergies Allergies Allergy/AdvReac Type Severity Reaction Status Date / Time No Known Allergies Allergy Verified 04/08/24 19:16 Assessment & Plan Assessment & Plan (1) Dementia: Status: Acute Code(s): F03.90 - Unspecified dementia, unspecified severity, without behavioral disturbance, psychotic disturbance, mood disturbance, and anxiety (2) Psychosis: Status: Acute Code(s): F29 - Unspecified psychosis not due to a substance or known physiological condition Plan The patient is a 78-year-old male with a past history of high blood pressure, dementia, hypothyroidism and GERD referred from the emergency room of [facility] for exacerbation of psychosis in the context of worsening dementia. He had been calling the police regarding masked intruders in his home and disorganized behavior. Plan 1. We have increased Aricept and Namenda to target dementia. 2. Since the patient had been sundowning we have decided to use Haldol 1 mg p.o. in the afternoon with good tolerability. 3. Continue 15 minute checks. 05/03/24: Continue current plan of care 05/04: Continue current management and treatment plan. Reason for continued inpatient stay Substantial Risk for: inability to function, rapid decompensation and med/psych decompensation Time Spent With Patient Time: Total time managing care of this patient today ____ minutes.
[2024-05-04] MEDS: Furosemide 40 MG TABLET PO (10:54)
[2024-05-04] MEDS: HaloperidoL 1 MG TABLET PO (15:31)
[2024-05-04 20:00] VITALS: BP 107/59; BP 109/59; PULSE 54; RESP 16; TEMP 36.9; O2SAT 94
[2024-05-04] MEDS: traZODone HCL 50 MG TABLET PO (20:14)
[2024-05-04] MEDS: Latanoprost 0.005 % Ophth Sol 2.5 ML DROPS 1 DROP EYE-BOTH (20:14)
[2024-05-04] MEDS: Famotidine 20 MG TABLET 40 MG PO (20:14)
[2024-05-05] MEDS: Levothyroxine Sodium 75 MCG TABLET PO (05:58)
[2024-05-05] MEDS: Omeprazole 20 MG CAPSULE.DR PO ×2 (05:58→15:46)
[2024-05-05 08:00] VITALS: BP 137/69; PULSE 61; RESP 18; TEMP 36.9; O2SAT 97
[2024-05-05] MEDS: Potassium Chloride ER 10 MEQ TABLET.ER PO ×2 (08:13→20:02)
[2024-05-05] MEDS: lisinopriL 2.5 MG TABLET PO (08:13)
[2024-05-05] MEDS: Apixaban 5 MG TABLET PO ×2 (08:13→20:02)
[2024-05-05] MEDS: Donepezil HCl 10 MG TABLET PO (08:13)
[2024-05-05] MEDS: Memantine HCl 10 MG TABLET PO ×2 (08:13→20:02)
[2024-05-05] MEDS: dilTIAZem HCL CD 240 MG CAP.ER.DEG PO (08:14)
[2024-05-05] MEDS: Pravastatin Sodium 20 MG TABLET PO (08:14)
[2024-05-05] MEDS: Furosemide 40 MG TABLET PO (08:14)
[2024-05-05] MEDS: Tolterodine Tartrate LA 4 MG CAP.ER.24H PO (08:14)
[2024-05-05] MEDS: Metoprolol Succinate ER 100 MG TAB.ER.24H 200 MG PO (08:15)
--- NOTE | 2024-05-05 10:22 | P.PNPSI_ITS ---
Subjective Subjective Date of Service: 05/05/24 Reason For Visit: unspecified neurocognitive d/o Interim History: Patient seen. Reports he is doing well and offers no complaints today. Pleasantly confused. Eating well. Engaged in the milieu with others. Taking his medications. Denies SI/HI. Says he slept well. Review of Systems Review of Systems He denies this a.m Yes all other systems are reviewed and are negative and Unobtainable due to mental status Mental Status Exam Mental Status Exam Patient Appearance: Appropriate Patient Orientation: Person Level of Consciousness: Awake and Appropriate Patient Behavior: Talkative and Good Eye Contact Mood Description: Calm Affect Description: Constricted Patient Cognition Impaired: Yes Ability to Follow Directions: Good Speech Pattern: Clear Diagnostics Vital Signs (24Hr): Vital Signs - 24 hr 05/04/24 20:00 05/04/24 20:00 05/05/24 08:00 Temperature 98.4 F 98.4 F 98.4 F Pulse Rate 54 54 61 Respiratory Rate 16 18 Blood Pressure 109/59 L 107/59 L 137/69 Pulse Oximetry 94 94 97 Oxygen Delivery Method Room Air Room Air Room Air BMI result Body Mass Index 35.3 Labs 04/08/24 20:38 Medications Medications Current Medications Acetaminophen (Acetaminophen 325 Mg Tablet) 650 mg PO Q6H PRN PRN Reason: Headache/Pain Mild Scale (1-3) Last Admin: 04/11/24 14:50 Dose: 650 mg Al Hydroxide/Mg Hydroxide (Magnesium Hydrox/Alum Hydrox 30 Ml Oral.Susp) 30 ml PO Q6H PRN PRN Reason: Heartburn/Nausea Apixaban (Apixaban 5 Mg Tablet) 5 mg PO BID [facility] Last Admin: 05/05/24 08:13 Dose: 5 mg Diltiazem HCl (Diltiazem Hcl Cd 240 Mg Cap.Er.Deg) 240 mg PO DAILY [facility]; Protocol Last Admin: 05/05/24 08:14 Dose: 240 mg Donepezil HCl (Donepezil Hcl 10 Mg Tablet) 10 mg PO DAILY [facility] Last Admin: 05/05/24 08:13 Dose: 10 mg Famotidine (Famotidine 20 Mg Tablet) 40 mg PO BEDTIME [facility] Last Admin: 05/04/24 20:14 Dose: 40 mg Furosemide (Furosemide 40 Mg Tablet) 40 mg PO DAILY [facility]; Protocol Last Admin: 05/05/24 08:14 Dose: 40 mg Haloperidol (Haloperidol 1 Mg Tablet) 1 mg PO DAILY@1630 [facility] Last Admin: 05/04/24 15:31 Dose: 1 mg Hydroxyzine HCl (Hydroxyzine Hcl 25 Mg Tablet) 25 mg PO Q6H PRN PRN Reason: Anxiety Last Admin: 04/27/24 20:23 Dose: 25 mg Latanoprost (Latanoprost 0.005 % Ophth Lupis 2.5 Ml Drops) 1 drop EYE-BOTH BEDTIME [facility] Last Admin: 05/04/24 20:14 Dose: 1 drop Levothyroxine Sodium (Levothyroxine Sodium 75 Mcg Tablet) 75 mcg PO DAILY@0600 [facility] Last Admin: 05/05/24 05:58 Dose: 75 mcg Lisinopril (Lisinopril 2.5 Mg Tablet) 2.5 mg PO DAILY [facility]; Protocol Last Admin: 05/05/24 08:13 Dose: 2.5 mg Magnesium Hydroxide (Milk Of Magnesia 30 Ml Oral.Susp) 30 ml PO DAILY PRN PRN Reason: Constipation Memantine (Memantine Hcl 10 Mg Tablet) 10 mg PO BID [facility] Last Admin: 05/05/24 08:13 Dose: 10 mg Metoprolol Succinate (Metoprolol Succinate Er 100 Mg Tab.Er.24h) 200 mg PO DAILY [facility]; Protocol Last Admin: 05/05/24 08:15 Dose: 200 mg Olanzapine (Olanzapine 2.5 Mg Tablet) 2.5 mg PO Q4H PRN PRN Reason: Psychosis Omeprazole (Omeprazole 20 Mg Capsule.Dr) 20 mg PO BID@0630,1630 [facility] Last Admin: 05/05/24 05:58 Dose: 20 mg Potassium Chloride (Potassium Chloride Er 10 Meq Tablet.Er) 10 meq PO BID [facility] Last Admin: 05/05/24 08:13 Dose: 10 meq Pravastatin Sodium (Pravastatin Sodium 20 Mg Tablet) 20 mg PO DAILY [facility] Last Admin: 05/05/24 08:14 Dose: 20 mg Tolterodine Tartrate (Tolterodine Tartrate La 4 Mg Cap.Er.24h) 4 mg PO DAILY [facility] Last Admin: 05/05/24 08:14 Dose: 4 mg Trazodone HCl (Trazodone Hcl 50 Mg Tablet) 50 mg PO BEDTIME MRX1 PRN PRN Reason: Insomnia Last Admin: 05/04/24 20:14 Dose: 50 mg Allergies Allergies Allergy/AdvReac Type Severity Reaction Status Date / Time No Known Allergies Allergy Verified 04/08/24 19:16 Assessment & Plan Assessment & Plan (1) Dementia: Status: Acute Code(s): F03.90 - Unspecified dementia, unspecified severity, without behavioral disturbance, psychotic disturbance, mood disturbance, and anxiety (2) Psychosis: Status: Acute Code(s): F29 - Unspecified psychosis not due to a substance or known physiological condition Plan The patient is a 78-year-old male with a past history of high blood pressure, dementia, hypothyroidism and GERD referred from the emergency room of [facility] for exacerbation of psychosis in the context of worsening dementia. He had been calling the police regarding masked intruders in his home and disorganized behavior. Plan 1. We have increased Aricept and Namenda to target dementia. 2. Since the patient had been sundowning we have decided to use Haldol 1 mg p.o. in the afternoon with good tolerability. 3. Continue 15 minute checks. 05/03/24: Continue current plan of care 05/04: Continue current management and treatment plan. 05/05: Continue current management and treatment plan. Reason for continued inpatient stay Substantial Risk for: inability to function and rapid decompensation Time Spent With Patient Time: Total time managing care of this patient today ____ minutes.
[2024-05-05] MEDS: HaloperidoL 1 MG TABLET PO (15:46)
[2024-05-05 20:00] VITALS: BP 118/63; PULSE 58; TEMP 36.3; O2SAT 90
[2024-05-05] MEDS: Famotidine 20 MG TABLET 40 MG PO (20:02)
[2024-05-05] MEDS: traZODone HCL 50 MG TABLET PO (20:02)
[2024-05-05] MEDS: Latanoprost 0.005 % Ophth Sol 2.5 ML DROPS 1 DROP EYE-BOTH (20:04)
[2024-05-06] MEDS: hydrOXYzine HCL 25 MG TABLET PO (01:01)
[2024-05-06] MEDS: Levothyroxine Sodium 75 MCG TABLET PO (05:36)
[2024-05-06] MEDS: Omeprazole 20 MG CAPSULE.DR PO (06:48)
[2024-05-06 08:00] VITALS: BP 113/65; PULSE 62; RESP 18; TEMP 36.4; O2SAT 99
[2024-05-06] MEDS: Pravastatin Sodium 20 MG TABLET PO (08:43)
[2024-05-06] MEDS: Furosemide 40 MG TABLET PO (08:43)
[2024-05-06] MEDS: Metoprolol Succinate ER 100 MG TAB.ER.24H 200 MG PO (08:44)
[2024-05-06] MEDS: Tolterodine Tartrate LA 4 MG CAP.ER.24H PO (08:44)
[2024-05-06] MEDS: dilTIAZem HCL CD 240 MG CAP.ER.DEG PO (08:44)
[2024-05-06] MEDS: lisinopriL 2.5 MG TABLET PO (08:44)
[2024-05-06] MEDS: Memantine HCl 10 MG TABLET PO (08:44)
[2024-05-06] MEDS: Apixaban 5 MG TABLET PO (08:44)
[2024-05-06] MEDS: Potassium Chloride ER 10 MEQ TABLET.ER PO (08:44)
--- NOTE | 2024-05-06 09:34 | PM.PSYDC ---
DS: Providers Provider Date of Service: 05/06/24 Date of admission: 04/08/24 17:07 Date of discharge: 05/06/24 Primary care physician: Unknown Physician Consults: 04/08/24 19:16 Consult to Hospitalist Routine Comment: Consulting Provider: [facility] Hospitalists Reason For Exam: medical H&P DS: Diagnosis Discharge Diagnosis (1) Dementia: Status: Acute (2) Psychosis: Status: Acute DS: Medications Discharge Medications Home Medications: Home Medications ?Medication ?Instructions ?Recorded ?Confirmed apixaban 5 mg tablet (Eliquis) 5 mg PO BID 04/08/24 04/08/24 diltiazem HCl 240 mg 240 mg PO DAILY 04/08/24 04/08/24 capsule,extended release 24 hr donepezil 10 mg tablet 10 mg PO DAILY 04/08/24 04/08/24 famotidine 40 mg tablet 40 mg PO BEDTIME 04/08/24 04/08/24 furosemide 40 mg tablet 40 mg PO DAILY 04/08/24 04/08/24 latanoprost 0.005 % eye drops 1 drp ophthalmic (eye) BEDTIME 04/08/24 04/08/24 levothyroxine 75 mcg tablet 75 mcg PO DAILY 04/08/24 04/08/24 lisinopril 2.5 mg tablet 2.5 mg PO DAILY 04/08/24 04/08/24 metoprolol succinate 200 mg 300 mg PO DAILY 04/08/24 04/09/24 tablet,extended release 24 hr omeprazole 20 mg capsule,delayed 20 mg PO BID 04/08/24 04/08/24 release potassium chloride 10 mEq 10 meq PO BID 04/08/24 04/08/24 capsule,extended release pravastatin 20 mg tablet 20 mg PO DAILY 04/08/24 04/08/24 solifenacin 10 mg tablet 10 mg PO DAILY 04/08/24 04/08/24 Mental Status Exam Mental Status Exam Patient Appearance: Well Grooomed Patient Orientation: Person and Situation Level of Consciousness: Awake and Appropriate Patient Behavior: Cooperative and Passive Mood Description: Calm Affect Description: Constricted Patient Cognition Impaired: Yes Ability to Follow Directions: Good Speech Pattern: Clear Hallucinations: None Delusions: Not Present Thought Process: Distracted and Slowed Thinking Thought Content: positive for Royal and positive for Circumstantial Judgement: Fair DS: Summary Hospital Course Hospital Course: The patient is a 78-year-old male, resident of an assisted living facility with good social support provided but his 2 adult daughters who lives around with a past history of dementia. The patient was rushed to the emergency room after he had been calling to the police several times stating that masked intruders are getting into his home. According to the crisis assessment her daughter reported that he had been more irritable in the last month unclear reasons. He was assessed in the emergency room [facility], evidenced on the psychiatric evaluation of visual hallucinations with disorganized behavior. He was rushed to the emergency room medically cleared and transferring to this facility for psychiatric stabilization. While in the emergency room, the assessment showed that he was severely demented and confused unable to follow directions. On the intake interview, the patient was very confused and pleasant stating that he is doing fine but he was completely disoriented, he did not know that he was in the hospital. He was unable to provide how come he ended up in the emergency room was complaining that he needed to go to his home. The patient was a very poor historian but pleasantly confused and redirectable. Please see the HPI of the admission note for further details. While he was admitted, we gather collateral information apparently his dementia started a few months ago and it was evident that the patient had more confusion in the afternoon. We add a very low dose of Haldol 1 mg at 16:00 to prevent sundowning. Also we increase the Aricept to 10 mg p.o. q.h.s. and added Namenda 10 mg p.o. b.i.d. to target dementia with for tolerability. The patient was seen at groups, cooperative pleasant and easily redirectable. He tolerated very well the changes in his medications. Since there were no safety concerns discharge planning was discussed, the family wanted to be transferred to intermediate facility for continuation of care. Time spent discussing smoking cessation with patient: 3 to 10 minutes Status at Discharge Cognitive/behavioral status at discharge: Impaired at baseline Functional status at discharge: uses cane/walker Overall status at discharge: patient is back to baseline Time Spent with Patient Time attestation: Total time managing care of this patient today __30__ minutes. Time spent: Less than 30 minutes Discharge Plan Discharge Anticipated Discharge Date/Time: 05/06/24 11:00 Patient Disposition: Xfer SNF Discharge Diagnosis: Dementia Psychosis Referrals: Physician,Unknown J [Primary Care Provider] - 1 Week Discharge Medications: New metoprolol succinate 100 mg Tablet Extended Release 24 Hr 200 mg PO DAILY 30 Days Qty: 60 0RF Protocol: Hold for SBP/HR < HOLD for SBP < : 90 HOLD for HR < : 60 haloperidol 1 mg Tablet 1 mg PO DAILY@1630 30 Days Qty: 30 0RF hydroxyzine HCl 25 mg Tablet 25 mg PO Q6H PRN (Reason: Anxiety) Qty: 20 0RF trazodone 50 mg Tablet 50 mg PO BEDTIME MRX1 PRN (Reason: Insomnia) 30 Days Qty: 30 0RF memantine 10 mg Tablet 10 mg PO BID 30 Days Qty: 60 0RF Continued furosemide 40 mg tablet 40 mg PO DAILY 30 Days Qty: 30 0RF latanoprost 0.005 % drops 1 drp ophthalmic (eye) BEDTIME 30 Days Qty: 5 0RF Rx Instructions: both eyes potassium chloride 10 mEq capsule, extended release 10 meq PO BID 30 Days Qty: 60 0RF diltiazem HCl 240 mg capsule,extended release 24hr 240 mg PO DAILY 30 Days Qty: 30 0RF donepezil 10 mg tablet 10 mg PO DAILY 30 Days Qty: 30 0RF famotidine 40 mg tablet 40 mg PO BEDTIME 30 Days Qty: 30 0RF levothyroxine 75 mcg tablet 75 mcg PO DAILY 30 Days Qty: 30 0RF omeprazole 20 mg capsule,delayed release(DR/EC) 20 mg PO BID 30 Days Qty: 60 0RF pravastatin 20 mg tablet 20 mg PO DAILY 30 Days Qty: 30 0RF lisinopril 2.5 mg tablet 2.5 mg PO DAILY 30 Days Qty: 30 0RF solifenacin 10 mg tablet 10 mg PO DAILY 30 Days Qty: 30 0RF Eliquis 5 mg tablet 5 mg PO BID Qty: 60 0RF Discontinued metoprolol succinate 200 mg tablet extended release 24 hr 300 mg PO DAILY Rx Instructions: Take 1 1/2 tablets daily. Discharge Orders: Discharge Order (Routine); Ordered 05/06/24 Ordered By: Berny Escamilla Diet: Advance to usual diet Activity on Discharge: As tolerated Stand Alone Forms: Patient Portal Discharge page Print Language: Ukrainian Care Plan Goals: Care plan goals achieved in this admission Health Concerns: Continue treatment with primary care physician and other specialists. Plan of Treatment: Continue with outpatient psychiatrist for continuation of care. Assessment: Elderly male with a past history of dementia and psychosis who was brought into the facility for exacerbation of disorganization and agitation. He was fully worked out and apparently he needed a low dose of haloperidol at 1 mg in the afternoon to prevent sundowning. At this moment no safety concerns ready to be discharged to intermediate facility.
[2024-05-06] MEDS: Donepezil HCl 10 MG TABLET PO (12:05)
== END 2024-05-06 13:38 | disposition skilled nursing facility (03) | DRG 885 ==
PROVIDERS: Social Worker; Admitting Provider Psychiatry & Neurology Psychiatry; Visit Provider Psychiatry & Neurology Psychiatry
DX: F29 Unspecified psychosis not due to a substance or known physiological condition (principal); F03.90 Unspecified dementia, unspecified severity, without behavioral disturbance, psychotic disturbance, mood disturbance, and anxiety; Z87.891 Personal history of nicotine dependence; Z79.01 Long term (current) use of anticoagulants; Z79.899 Other long term (current) drug therapy
CPT/HCPCS: 36415; 80053; 80061; 82607; 82746; 83036; 84443; 97161

== ENCOUNTER → 2024-04-08 17:07 | Outpatient (BNV) | payer MEDICARE, SELFPAY | PROVIDERS: Admitting Provider Psychiatry & Neurology Psychiatry; Visit Provider Psychiatry & Neurology Psychiatry | DX: F29 Unspecified psychosis not due to a substance or known physiological condition (principal); F03.90 Unspecified dementia, unspecified severity, without behavioral disturbance, psychotic disturbance, mood disturbance, and anxiety | CPT/HCPCS: 90792; 99231; 99232 ==

== ENCOUNTER → 2024-04-08 17:07 | Outpatient (BNV) | payer MEDICARE, SELFPAY | PROVIDERS: Admitting Provider Psychiatry & Neurology Psychiatry; Visit Provider Physician Assistant | DX: Z02.2 Encounter for examination for admission to residential institution (principal); E66.811 Obesity, class 1 | CPT/HCPCS: 99429 ==